=== PATIENT | female | born 1995 | race Caucasian/White ===

== ENCOUNTER 2021-05-17 17:26 | Inpatient (IN) | payer OTHER, SELFPAY ==
--- NOTE | ~2021-05-17 | XR_ITS ---
EXAMINATION: XR HAND, RIGHT CLINICAL INFORMATION: Bruise noted to fifth metacarpal. COMPARISON: Radiograph of the right hand dated from 08/23/2018. TECHNIQUE: PA, lateral, and oblique views of the right hand. FINDINGS: Subtle chronic deformity from prior fracture at the head of the fifth metacarpal bone. No acute fractures or malalignment. Carpal rows are maintained. Mild soft tissue swelling. No unexpected radiopaque foreign bodies. XR/XR hand RT min 3V IMPRESSION: No acute fractures or malalignment.
--- NOTE | ~2021-05-17 | XR_ITS ---
EXAMINATION: XR CHEST CLINICAL INFORMATION: Pneumonia. COMPARISON: None TECHNIQUE: Frontal view of the chest was obtained. FINDINGS: No significant abnormality is noted involving the heart, lungs, mediastinum, bony thorax or soft tissues. XR/XR chest 1V IMPRESSION: Unremarkable chest examination.
--- NOTE | ~2021-05-17 | XR_ITS ---
EXAMINATION: XR THORACIC SPINE CLINICAL INFORMATION: Pain post fall COMPARISON: None TECHNIQUE: 2 views of the thoracic spine were obtained. FINDINGS: There is mild curvature of the thoracic spine to the right. Bone alignment is otherwise normal. No fracture or dislocation is seen. Disc spaces are normal. Paraspinal soft tissues are normal. XR/XR thoracic spine 3V IMPRESSION: No fracture seen.
--- NOTE | 2021-05-17 17:44 | ED.OVERDOSE ---
HPI - Overdose General Chief Complaint: Psychiatric Symptoms Stated Complaint: Section 12 SI Time Seen by Provider: 05/17/21 17:43 Source: patient Mode of arrival: ambulatory Limitations: other (Patient is under the influence of drugs and possibly alcohol.) History of Present Illness HPI Narrative: This is a 26-year-old female presenting to the emergency department via ambulance and no known medical history with suicidal ideation/attempt. Patient snorted 29 bags of heroin per patient's mother and per EMS. According to mother patient was cleaned for 5-6 months and she had a suicide attempt today. She also left a suicide note by her side. Mother found her on the floor, not responding. Unclear whether not Narcan was given. It is also reported to me by EMS that patient has had multiple suicide attempts. Patient is extremely paranoid, tearful, drowsy not answering questions appropriately. EMS also reports to me that she was found with multiple bottles of open alcohol by her side, hard liquor and reports marijuana use. At this time patient tells me that her chest hurts. She has no other complaints. On a section 12 upon arrival. complaint: intentional overdose Onset (ago): minute(s) (30o) Timing confirmed by: family member Related Data Allergies Allergy/AdvReac Type Severity Reaction Status Date / Time SEASONAL ALLERGIES Allergy Mild STUFFY Uncoded 11/19/19 18:42 NOSE, HEADACHES Review of Systems Review of Systems: Constitutional : No Weight loss, No Fever, No Chills, No Fatigue, No Malaise ENT/Mouth : No sore throat, No Rhinorrhea Eyes: No Eye Pain, No Swelling, No Redness Cardiovascular : No Chest Pain, No SOB, No Dyspnea on Exertion, No Orthopnea, No Edema, No Palpitations Respiratory : No Cough, No Sputum, No Wheezing Gastrointestinal : No Nausea, No Vomiting, No Diarrhea, No Constipation, No abdominal Pain, No Hematochezia, No Melena Genitourinary : No Dysuria, No Urinary Frequency, No Hematuria, Musculoskeletal : No joint pain, No Myalgias, No Joint Swelling Skin : No Skin Lesions, No rash Neuro : No Weakness, No Numbness, No Dizziness, No Headache Psych : + Anxiety/Panic, + Depression, + SI All other systems reviewed and are negative [facility] Past Medical History Attestation statement: The following information was validated with the patient. Source: old records reviewed and nursing notes reviewed Medical History (Updated 05/18/21 @ 00:02 by Background Sandeep) Anxiety Depressed Social History Social History Advance Directives: No Advance Directives Information Provided: Yes Physical Exam Vital Signs: Vital Signs: Last Vital Signs Temp 98 F 05/17/21 20:40 Pulse 122 H 05/18/21 02:14 Resp 17 05/18/21 02:14 BP 162/88 H 05/18/21 02:14 Pulse Ox 99 05/18/21 02:14 BMI result Body Mass Index 20.8 Vital signs stable. Appearance: Alert.? Oriented X3.? No acute distress.? Patient drowsy, not answering questions from time to time. Head: Normocephalic, atraumatic, no step-offs or deformities Eyes: Pupils equal, round and reactive to light.? + bilateral pupils pinpoint ENT: Pharynx normal.? Neck: Normal inspection.? Neck supple.? CVS: Normal heart rate and rhythm.? Pulses normal.? Respiratory: No respiratory distress.? Breath sounds normal.? Abdomen: Soft and nontender.? Skin: Skin warm and dry.? Normal skin color.? Normal skin turgor.? Extremities: No lower extremity edema.? No calf ttp. 5/5 strength to bilateral upper and lower extremities + there is bruising noted over the right 5th metacarpal some pain on palpation of the area. Back: No midline tenderness, no C-spine tenderness, full range of motion, no CVA tenderness bilaterally Neuro: Oriented X 3.? No motor deficit.? No sensory deficit. CN 2-12 intact Course Reevaluation(s) Reevaluation #1: Patient's white blood cell count noted to be elevated likely secondary to persistent vomiting. No acute electrolyte abnormalities. Troponin negative. EKG nonischemic, unlikely ACS. Time: 19:00 Reevaluation #2: At this time patient aggressive toward staff members, and myself, sitters at the bedside and nurses. Imminent threat to self and others around her. At this time a medical restraint will be put in ativan and benadryl. Time: 23:30 Reevaluation #3: Called to patient's bedside. Patients capnography 60, respirations 6. Narcan will be given at this time. aware. After Narcan was given patient vomiting a large amount of vomitus despite zofran . Time: 02:15 Additional Reevaluation(s): 226 At this time sign out has been given to Dr. Leyva. MDM - Overdose MDM Narrative Medical decision making narrative: 1820 26 yo f no pmhx presents w/ si attempt w/ heroin OD. According to EMS and mother patient snorted a large amount of heroin. Alcohol was also noted at the patient's bedside at home. Physical exam significant for drowsy female with a rapid regular rhythm likely sinus tachycardia. Bilateral pinpoint pupils. Drowsy however arousable. There is bruising noted over the 5th metacarpal and she reports pain with palpation there. Plan at this time basic labs, UA, VARGAS Informed my attending about this case- at time of arrival patient protecting her own airway. Medical Records Attestation: I reviewed the patient's medical records. Lab Data Attestation: I reviewed the patient's lab results. Result diagrams: 05/17/21 18:32 05/17/21 18:32 Labs: Lab Results 05/17/21 05/17/21 05/17/21 Range/Units 18:32 18:32 18:32 WBC 28.6 H (4.8-10.8) X10*3/uL RBC 4.60 (4.20-5.50) X10*6/uL Hgb 13.8 (12.0-16.0) g/dl Hct 41.6 (37.0-47.0) % MCV 90.4 (80.0-98.0) fL MCH 30.0 (27.0-33.0) pg MCHC 33.2 (31.0-35.0) g/dl RDW 12.3 (11.0-16.0) % Plt Count 287 (160-400) X10*3/uL MPV 10.2 (9.4-12.3) fL Immature Gran % (Auto) 0.6 H (0.0-0.4) % Neut % (Auto) 91.0 H (45-73) % Lymph % (Auto) 2.6 L (20-40) % Hamlin % (Auto) 5.7 (2-11) % Eos % (Auto) 0.0 (0-4) % Baso % (Auto) 0.1 (0-2) % Lymph # (Auto) 0.8 L (1.2-4.9) X10*3/uL Hamlin # (Auto) 1.6 H (0.1-1.2) X10*3/uL Eos # (Auto) 0.0 (0.0-0.4) X10*3/uL Baso # (Auto) 0.0 (0.0-0.2) X10*3/uL Abs Immat Gran (auto) 0.18 H (0.00-0.03) X10*3/uL Absolute Neuts (auto) 26.0 H (2.0-8.3) x10*3/uL Absolute Nucleated RBC 0.000 (0.0-0.012) X10*3/uL Nucleated RBC % (auto) 0.0 (0.0-0.2) /100WBC Sodium 138 (135-145) mmol/L Potassium 4.4 (3.3-5.1) mmol/L Chloride 103 (96-108) mmol/L Carbon Dioxide 22 (22-29) mmol/L Anion Gap 17 (12-20) BUN 14 (9-16) mg/dL Creatinine 0.79 (0.5-1.4) mg/dL Estim Creat Clear Calc 84.6 Estimated GFR > 60 POC Glucose (60-115) mg/dL Random Glucose 131 H (60-115) mg/dL Calcium 9.3 (8.4-10.2) mg/dL Magnesium 2.0 (1.6-2.6) mg/dL Total Bilirubin 0.3 (0.0-1.0) mg/dL AST 44 H (5-31) U/L ALT 24 (0-31) U/L Alkaline Phosphatase 78 (39-117) U/L Troponin I High Sens 4.2 (<3.5-17.0) ng/L Total Protein 7.2 (6.5-8.0) g/dL Albumin 4.6 (3.5-5.0) g/dL Salicylates < 5.0 L (15-30) mg/dL Acetaminophen < 1 (<30) mcg/mL Ethyl Alcohol mg/dL COVID-19 (ROBE) (Negative) COVID-19 Clin Com 05/17/21 05/17/21 05/17/21 Range/Units 18:32 18:48 21:06 WBC (4.8-10.8) X10*3/uL RBC (4.20-5.50) X10*6/uL Hgb (12.0-16.0) g/dl Hct (37.0-47.0) % MCV (80.0-98.0) fL MCH (27.0-33.0) pg MCHC (31.0-35.0) g/dl RDW (11.0-16.0) % Plt Count (160-400) X10*3/uL MPV (9.4-12.3) fL Immature Gran % (Auto) (0.0-0.4) % Neut % (Auto) (45-73) % Lymph % (Auto) (20-40) % Hamlin % (Auto) (2-11) % Eos % (Auto) (0-4) % Baso % (Auto) (0-2) % Lymph # (Auto) (1.2-4.9) X10*3/uL Hamlin # (Auto) (0.1-1.2) X10*3/uL Eos # (Auto) (0.0-0.4) X10*3/uL Baso # (Auto) (0.0-0.2) X10*3/uL Abs Immat Gran (auto) (0.00-0.03) X10*3/uL Absolute Neuts (auto) (2.0-8.3) x10*3/uL Absolute Nucleated RBC (0.0-0.012) X10*3/uL Nucleated RBC % (auto) (0.0-0.2) /100WBC Sodium (135-145) mmol/L Potassium (3.3-5.1) mmol/L Chloride (96-108) mmol/L Carbon Dioxide (22-29) mmol/L Anion Gap (12-20) BUN (9-16) mg/dL Creatinine (0.5-1.4) mg/dL Estim Creat Clear Calc Estimated GFR POC Glucose 83 (60-115) mg/dL Random Glucose (60-115) mg/dL Calcium (8.4-10.2) mg/dL Magnesium (1.6-2.6) mg/dL Total Bilirubin (0.0-1.0) mg/dL AST (5-31) U/L ALT (0-31) U/L Alkaline Phosphatase (39-117) U/L Troponin I High Sens (<3.5-17.0) ng/L Total Protein (6.5-8.0) g/dL Albumin (3.5-5.0) g/dL Salicylates (15-30) mg/dL Acetaminophen (<30) mcg/mL Ethyl Alcohol < 10 mg/dL COVID-19 (ROBE) Negative (Negative) COVID-19 Clin Com See Note ECG Data Attestation: I personally reviewed and interpreted this ECG as follows: ECG interpretation date: 05/17/21 ECG interpretation time: 19:14 Prior ECG tracings: not available for review Interpretation: EKG shows ventricular rate of 127, GA normal, QRS normal, QT/QTC normal. Showing sinus tachycardia no ST elevations or depressions concerning for ischemia. No previous to compare with. Critical Care Time Critical Care Time Critical Care Time: Yes Total Critical Care Time: 35 Attestation: I attest to this time spent taking care of the patient, obtaining history, physical, reviewing labs, imaging, speaking to my attendin Discharge Plan Discharge Clinical Impression: Suicide attempt, Overdose Patient Disposition: Still a Patient
[2021-05-17 17:46] VITALS: BP 134/76; BP 143/103; PULSE 118; PULSE 148; RESP 14; TEMP 36.9; O2SAT 100; O2SAT 97; BMI 20.8
--- NOTE | 2021-05-17 17:50 | ECG_ITS ---
Test Reason : OD Blood Pressure : / mmHG Vent. Rate : 127 BPM Atrial Rate : 127 BPM P-R Int : 120 ms QRS Dur : 070 ms QT Int : 306 ms P-R-T Axes : 075 071 067 degrees QTc Int : 444 ms Artifact in tracing Sinus tachycardia No obvious abnormalities, with limitation of artifact No previous ECGs available Referred By: Vimal Sterling Electronically Signed By:FABIOLA JUAN
[2021-05-17] MEDS: Naloxone HCl Nasal 4 MG SPRAY NOSTRILALT (18:24)
[2021-05-17 18:39] LABS: MANUAL DIFF FLAG NO
[2021-05-17 18:43] LABS: Basophils Percent Auto 0.1 % (0-2); Hematocrit 41.6 % (37.0-47.0); Hemoglobin 13.8 g/dl (12.0-16.0); Imm Gran Abs Auto 0.18 X10*3/uL (0.00-0.03); Imm Gran Pct Auto 0.6 % (0.0-0.4); Lymphocytes Absolute Auto 0.8 X10*3/uL (1.2-4.9); Lymphocytes Percent Auto 2.6 % (20-40); Mean Corpuscular HGB Conc 33.2 g/dl (31.0-35.0); Mean Corpuscular Volume 90.4 fL (80.0-98.0); Mean Platelet Volume 10.2 fL (9.4-12.3); Monocytes Absolute Auto 1.6 X10*3/uL (0.1-1.2); Monocytes Percent Auto 5.7 % (2-11); Platelet Count 287 X10*3/uL (160-400); Red Cell Distribution Width 12.3 % (11.0-16.0); SCAN SMEAR FLAG 1; White Blood Count 28.6 X10*3/uL (4.8-10.8)
[2021-05-17] MEDS: ondansetron HCL 4 MG/2 ML VIAL IVPUSH (18:47)
[2021-05-17 18:51] LABS: Ethanol < 10 mg/dL
[2021-05-17 18:54] LABS: Acetaminophen LAB < 1 mcg/mL (<30); Alanine Aminotransferase 24 U/L (0-31); Albumin Level 4.6 g/dL (3.5-5.0); Alkaline Phosphatase 78 U/L (39-117); Anion Gap 17 (12-20); Aspartate Amino Transferase 44 U/L (5-31); Bilirubin Total 0.3 mg/dL (0.0-1.0); Blood Urea Nitrogen 14 mg/dL (9-16); Calcium 9.3 mg/dL (8.4-10.2); Carbon Dioxide 22 mmol/L (22-29); Chloride 103 mmol/L (96-108); Creatinine Clr Calc Pharmacy 84.6; Estimated Glomerular Filt Rate > 60; Glucose Random 131 mg/dL (60-115); Potassium 4.4 mmol/L (3.3-5.1); Salicylate < 5.0 mg/dL (15-30); Sodium 138 mmol/L (135-145); Total Protein 7.2 g/dL (6.5-8.0)
[2021-05-17 19:07] LABS: Troponin-I High Sensitivity 4.2 ng/L (<3.5-17.0)
[2021-05-17 19:08] LABS: COVID-19 Test Negative (Negative)
[2021-05-17 20:40] VITALS: BP 112/60; PULSE 73; RESP 12; TEMP 36.6; O2SAT 95
[2021-05-17] MEDS: 0.9 % Sodium Chloride 1,000 ML 999 ML IV (21:03)
[2021-05-17 21:10] LABS: Glucose, Whole Blood 83 mg/dL (60-115)
[2021-05-17] MEDS: LORazepam 2 MG/ML VIAL IM (23:50)
[2021-05-17] MEDS: diphenhydrAMINE HCL 50 MG/ML VIAL IM (23:50)
[2021-05-18] VITALS (13 sets, daily range): BP systolic 114–162; BP diastolic 66–90; PULSE 71–122; RESP 7–18; TEMP 37.5–37.8; O2SAT 97–100; BMI 19.4
[2021-05-18] MEDS: Naloxone HCl Nasal 4 MG SPRAY NOSTRILALT (01:53)
[2021-05-18] MEDS: ondansetron HCL 4 MG/2 ML VIAL IVPUSH (02:04)
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
--- NOTE | 2021-05-18 03:51 | PC.NURSE ---
pt is a 1:1 at this time due to having agitation and aggressive behavior with staff. Pt is currently sleeping with no sign of distress. pt is on the bedside monitor.
--- NOTE | 2021-05-18 05:57 | PC.NURSE ---
pt is awake and cooperative at this time. Pt mother called in regards to getting information/ update on her daughter. Pt does not want any information given out.
[2021-05-18 06:59] LABS: Appearance Urine CLEAR; Color Urine YELLOW; Glucose Urine UA NEG (NEG); Leukocyte Esterase Urine NEG (NEG); Nitrite Urine NEG (NEG); PH 5.5 (5.0-8.0); Specific Gravity - Urine >= 1.030 (1.005-1.025); UACC Culture Trigger NO; Urine Blood 3+ (NEG); Urine Ketones 15 MG/DL (NEG); Urine Protein 1+ MG/DL (NEG-TRACE)
[2021-05-18 07:01] LABS: UPreg QC Valid YES; Urine Pregnancy NEGATIVE (NEGATIVE)
--- NOTE | 2021-05-18 07:05 | PC.NURSE ---
[facility] referral sent at this time
[2021-05-18 07:13] LABS: RBC Urine 0-2 /HPF (0)
[2021-05-18 07:14] LABS: Bacteria Urine TRACE /LPF; Mucus Urine 1+ /LPF; Squamous Epithelial Cell Urine TRACE /LPF
[2021-05-18 07:15] LABS: Amorphous Sediment Urine 2+ /LPF; Amphetamine Screen Urine Not Detected (Not Detect); Barbiturates, Urine Not Detected (Not Detect); Benzodiazepines Screen Urine POSITIVE (Not Detect); Cannabinoid Screen Urine POSITIVE (Not Detect); Cocaine Screen Urine Not Detected (Not Detect); Fentanyl, urine POSITIVE (Not Detect); Opiate Screen Urine Not Detected (Not Detect); Phencyclidine Screen Urine Not Detected (Not Detect)
--- NOTE | 2021-05-18 11:09 | MHC.CARE ---
Pt is a CARE Team bedsearch.
--- NOTE | 2021-05-18 11:48 | PHA.MEDREC ---
Pharmacy Consult ? Medication Reconciliation Pharmacy has completed the medication reconciliation. Patient reported medications match claim history. Azael ArceD
[2021-05-18 14:38] LABS: MANUAL DIFF FLAG NO
[2021-05-18 14:47] LABS: Basophils Percent Auto 0.2 % (0-2); Eosinophils Percent Auto 0.1 % (0-4); Hematocrit 41.4 % (37.0-47.0); Hemoglobin 13.6 g/dl (12.0-16.0); Imm Gran Abs Auto 0.06 X10*3/uL (0.00-0.03); Imm Gran Pct Auto 0.4 % (0.0-0.4); Lymphocytes Absolute Auto 2.1 X10*3/uL (1.2-4.9); Lymphocytes Percent Auto 13.4 % (20-40); Mean Corpuscular HGB Conc 32.9 g/dl (31.0-35.0); Mean Corpuscular Hemoglobin 29.6 pg (27.0-33.0); Mean Platelet Volume 9.8 fL (9.4-12.3); Monocytes Absolute Auto 1.3 X10*3/uL (0.1-1.2); Monocytes Percent Auto 8.5 % (2-11); Neutrophils Absolute Auto 12.1 x10*3/uL (2.0-8.3); Neutrophils Percent Auto 77.4 % (45-73); Platelet Count 244 X10*3/uL (160-400); Red Cell Distribution Width 12.3 % (11.0-16.0); White Blood Count 15.6 X10*3/uL (4.8-10.8)
[2021-05-18] MEDS: Metoclopramide HCl 10 MG TABLET PO (14:58)
[2021-05-18 15:05] LABS: Alanine Aminotransferase 117 U/L (0-31); Albumin Level 4.5 g/dL (3.5-5.0); Alkaline Phosphatase 72 U/L (39-117); Anion Gap 16 (12-20); Aspartate Amino Transferase 325 U/L (5-31); Bilirubin Total 0.6 mg/dL (0.0-1.0); Blood Urea Nitrogen 9 mg/dL (9-16); Calcium 9.6 mg/dL (8.4-10.2); Carbon Dioxide 25 mmol/L (22-29); Chloride 104 mmol/L (96-108); Creatinine Clr Calc Pharmacy 85.7; Estimated Glomerular Filt Rate > 60; Glucose Random 96 mg/dL (60-115); Potassium 3.9 mmol/L (3.3-5.1); Sodium 141 mmol/L (135-145); Total Protein 7.1 g/dL (6.5-8.0)
--- NOTE | 2021-05-18 15:29 | PC.NURSE ---
pt c/o back pain, nausea, given reglan - vomiting episode 1520
[2021-05-18] MEDS: Cyclobenzaprine HCl 10 MG TABLET PO (15:59)
[2021-05-18] MEDS: Ibuprofen 800 MG TABLET PO (16:00)
[2021-05-18 16:05] LABS: Acetaminophen LAB < 1 mcg/mL (<30); Salicylate < 5.0 mg/dL (15-30)
[2021-05-18] MEDS: clonazePAM 0.5 MG TABLET PO (22:07)
[2021-05-18] MEDS: cloNIDine HCL 0.1 MG TABLET 0.3 MG PO (22:07)
--- NOTE | 2021-05-18 23:05 | PC.ADMIT ---
Pt is a 26y/o female admitted on CV for intentional OD. Pt' mother called EMS after pt was found unresponsive on the pt's bedside, along with a suicide note. Pt reports she feels helpless, hopeless and wants to end her life. Pt is alert and oriented. VSS, Covid negative, Tox screen positive for fentanyl, benzo's, etc. Pt presents with a labile mood and congruent affect to content at times. Appears weak and slightly unstable due to narcan given at the ED. Speech is normal regular with normal tone, tangential at times. Pt is irritable. Pt does not endorse HI/AH/VH. Judgement, insight and impulse control are impaired. Admission orders obtained.
[2021-05-19] VITALS: PULSE 102
[2021-05-19] MEDS: chlorproMAZINE HCl 25 MG TABLET PO ×2 (01:08→19:32)
[2021-05-19 06:00] VITALS: BP 116/56; PULSE 66; RESP 14; TEMP 36.4; O2SAT 99
[2021-05-19 08:00] VITALS: PULSE 110
[2021-05-19 08:01] LABS: HBS Num1 0.02 mIU/mL (0-7.99); HBc Num1 0.07 S/CO (0.00-0.79); Hepatitis A Antibody IgM 0.17 Index (0-0.79); Hepatitis B Core Antibody Nonreactive (Nonreactive); ~HepC Num1 0.05 S/CO (0.00-0.79); ~Hepatitis A Antibody IgM Nonreactive (Nonreactive); ~Hepatitis B Surface Antibody NONREACTIVE (Nonreactive); ~Hepatitis C Antibody Nonreactive (Nonreactive)
[2021-05-19 08:19] LABS: HBsAGNum1 0.19 S/CO (0.00-0.99); Hepatitis B Surface Antigen Negative (Negative)
[2021-05-19 09:12] LABS: Estimated Average Glucose 97 mg/dL
[2021-05-19 09:13] LABS: Cholesterol 165 mg/dL; HDL Cholesterol 60 mg/dL; LDL Cholesterol Calculated 91 mg/dl; Magnesium 2.1 mg/dL (1.6-2.6); Triglycerides 73 mg/dL
[2021-05-19] MEDS: cloNIDine HCL 0.1 MG TABLET PO (09:26)
[2021-05-19] MEDS: clonazePAM 0.5 MG TABLET PO ×2 (09:27→19:32)
[2021-05-19 09:35] LABS: Free T4 (Free Thyroxine) 1.17 ng/dL (0.71-1.85); Thyroid Stimulating Hormone 0.95 uIU/mL (0.32-4.0)
[2021-05-19 09:58] LABS: Folate 12.1 ng/mL (> or = 4.0); Vitamin B12 475 pg/mL (200-900)
[2021-05-19 14:34] VITALS: BP 169/104; PULSE 110; TEMP 37.1
--- NOTE | 2021-05-19 15:38 | PM.EVENT ---
Event Note Date of Service: 05/19/21 Event Note: Pt reports back pain-thoracic area radiating down R leg. Believes this was Narcan related. Pt was told she fell but does not actually think this is true. Area of redness mid quadrant with slight bruising. Spinal films are negative. Pt does appear to have a rash in this area without sx of anaphylaxis. Continue to monitor.
[2021-05-19 16:00] VITALS: PULSE 102
[2021-05-19] MEDS: LORazepam 1 MG TABLET PO (16:22)
[2021-05-19] MEDS: Acetaminophen 325 MG TABLET 650 MG PO ×2 (16:22→21:14)
[2021-05-19 18:00] VITALS: BP 128/78; PULSE 105; RESP 16; TEMP 36.6; O2SAT 99
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
[2021-05-19] MEDS: cloNIDine HCL 0.1 MG TABLET 0.3 MG PO (19:32)
[2021-05-19] MEDS: Ibuprofen 600 MG TABLET PO (22:26)
--- NOTE | 2021-05-19 23:24 | PC.NURSE ---
Pt alert and sleepy, VSS, C/O of back pain unrelieved by ordered PRN. Seen by Deb Steiner NP. New order: Motrin, given per order with positive effect. Pt sleeping.
[2021-05-20 06:00] VITALS: BP 128/71; PULSE 61; TEMP 37
[2021-05-20 08:00] VITALS: PULSE 61
[2021-05-20] MEDS: Ibuprofen 600 MG TABLET PO ×3 (08:05→20:24)
[2021-05-20] MEDS: cloNIDine HCL 0.1 MG TABLET PO (08:05)
[2021-05-20] MEDS: clonazePAM 0.5 MG TABLET PO ×2 (08:06→20:23)
[2021-05-20] MEDS: Multivitamin TABLET 1 TAB PO ×2 (08:08→10:07)
[2021-05-20] MEDS: Spironolactone 25 MG TABLET 100 MG PO ×2 (08:08→17:52)
[2021-05-20] MEDS: Calcium + Vitamin D 250 MG TABLET PO (08:08)
--- NOTE | 2021-05-20 08:36 | P.PNPSI_ITS ---
Subjective Subjective Date of Service: 05/20/21 Reason For Visit: Heroine OD, suicide attempt Subjective Notes: Conditional Voluntary and 3 Day Medical Problems Affecting Mental Status: Yes (Rash on the right side of her back) Interim History: Patient was seen and discussed in rounds today. Records and plans were reviewed. She continues to feel weak and has a hard time walking because of her back with a rash which is thought to be may be related to to Narcan treatments in the emergency room. She asked some questions about her discharge. She has been somewhat labile and tearful at times. She is isolative. No other complaints. No SI. No changes were made today Side effects from medications: Yes Attending Groups: No Mental Status Exam Mental Status Exam Narrative: In today's visit she is alert, oriented and pleasant. Normal speech. Little eye contact. She was laying in bed. Speech is soft-spoken and slightly slowed. No acute signs of psychosis. No SI. Cognitively she has slow thought processes. No signs of psychosis. Judgment is generally intact Diagnostics Vital Signs (24Hr): Vital Signs - 24 hr 05/19/21 14:34 05/19/21 18:00 05/20/21 06:00 Temperature 98.7 F 97.8 F 98.6 F Pulse Rate 110 H 105 H 61 Respiratory Rate 16 Blood Pressure 169/104 H 128/78 128/71 Pulse Oximetry 99 BMI result Body Mass Index 19.4 Labs Results: 05/18/21 14:32 05/18/21 14:32 Labs: Laboratory Results - last 48 hr 05/18/21 05/18/21 05/18/21 14:32 14:32 14:32 WBC 15.6 H RBC 4.60 Hgb 13.6 Hct 41.4 MCV 90.0 MCH 29.6 MCHC 32.9 RDW 12.3 Plt Count 244 MPV 9.8 Immature Gran % (Auto) 0.4 Neut % (Auto) 77.4 H Lymph % (Auto) 13.4 L Miner % (Auto) 8.5 Eos % (Auto) 0.1 Baso % (Auto) 0.2 Lymph # (Auto) 2.1 Miner # (Auto) 1.3 H Eos # (Auto) 0.0 Baso # (Auto) 0.0 Abs Immat Gran (auto) 0.06 H Absolute Neuts (auto) 12.1 H Absolute Nucleated RBC 0.000 Nucleated RBC % (auto) 0.0 Sodium 141 Potassium 3.9 Chloride 104 Carbon Dioxide 25 Anion Gap 16 BUN 9 Creatinine 0.78 Estim Creat Clear Calc 85.7 Estimated GFR > 60 Random Glucose 96 Estimat Average Glucose Hemoglobin A1c % Calcium 9.6 Magnesium Total Bilirubin 0.6 AST 325 H ALT 117 H Alkaline Phosphatase 72 Total Protein 7.1 Albumin 4.5 Triglycerides Cholesterol LDL Cholesterol, Calc HDL Cholesterol Vitamin B12 Folate TSH Free T4 Salicylates < 5.0 L Acetaminophen < 1 Hepatitis A IgM Ab Nonreactive Hep Bs Antigen Negative Hep Bs Antibody NONREACTIVE Hep B Core Total Ab Nonreactive Hepatitis C Ab (EIA) Nonreactive 05/19/21 05/19/21 05/19/21 08:06 08:06 08:06 WBC RBC Hgb Hct MCV MCH MCHC RDW Plt Count MPV Immature Gran % (Auto) Neut % (Auto) Lymph % (Auto) Miner % (Auto) Eos % (Auto) Baso % (Auto) Lymph # (Auto) Miner # (Auto) Eos # (Auto) Baso # (Auto) Abs Immat Gran (auto) Absolute Neuts (auto) Absolute Nucleated RBC Nucleated RBC % (auto) Sodium Potassium Chloride Carbon Dioxide Anion Gap BUN Creatinine Estim Creat Clear Calc Estimated GFR Random Glucose Estimat Average Glucose 97 Hemoglobin A1c % 5.0 Calcium Magnesium 2.1 Total Bilirubin AST ALT Alkaline Phosphatase Total Protein Albumin Triglycerides 73 Cholesterol 165 LDL Cholesterol, Calc 91 HDL Cholesterol 60 Vitamin B12 475 Folate 12.1 TSH 0.95 Free T4 1.17 Salicylates Acetaminophen Hepatitis A IgM Ab Hep Bs Antigen Hep Bs Antibody Hep B Core Total Ab Hepatitis C Ab (EIA) Imaging Radiology Impressions: ITS Impressions Hand X-Ray 05/17/21 19:17 IMPRESSION: No acute fractures or malalignment. Chest X-Ray 05/18/21 14:19 IMPRESSION: Unremarkable chest examination. Thoracic Spine X-Ray 05/19/21 13:55 IMPRESSION: No fracture seen. Medications Medications Current Medications Al Hydroxide/Mg Hydroxide (Magnesium Hydrox/Alum Hydrox 30 Ml Oral.Susp) 30 ml PO Q6H PRN PRN Reason: Heartburn/Nausea Calcium Carbonate/Cholecalciferol (Calcium + Vitamin D 250 Mg Tablet) 250 mg PO DAILY [facility] Last Admin: 05/20/21 08:08 Dose: 250 mg Documented by: Chlorpromazine HCl (Chlorpromazine Hcl 25 Mg Tablet) 25 mg PO BEDTIME [facility] Last Admin: 05/19/21 19:32 Dose: 25 mg Documented by: Clonazepam (Clonazepam 0.5 Mg Tablet) 0.5 mg PO BID [facility] Last Admin: 05/20/21 08:06 Dose: 0.5 mg Documented by: Clonidine HCl (Clonidine Hcl 0.1 Mg Tablet) 0.3 mg PO BEDTIME [facility]; Protocol Last Admin: 05/19/21 19:32 Dose: 0.3 mg Documented by: Clonidine HCl (Clonidine Hcl 0.1 Mg Tablet) 0.1 mg PO DAILY [facility]; Protocol Last Admin: 05/20/21 08:05 Dose: 0.1 mg Documented by: Doxycycline Hyclate (Doxycycline Hyclate 100 Mg Tablet) 100 mg PO Q12H [facility] Last Admin: 05/19/21 21:35 Dose: 100 mg Documented by: Hydroxyzine HCl (Hydroxyzine Hcl 50 Mg Tablet) 50 mg PO Q6H PRN PRN Reason: itching, anxiety Ibuprofen (Ibuprofen 600 Mg Tablet) 600 mg PO Q6H PRN PRN Reason: mod pain Last Admin: 05/20/21 08:05 Dose: 600 mg Documented by: Lorazepam (Lorazepam 1 Mg Tablet) 1 mg PO Q6H PRN PRN Reason: Alcohol Withdrawal ONLY Magnesium Hydroxide (Milk Of Magnesia 30 Ml Oral.Susp) 30 ml PO DAILY PRN PRN Reason: Constipation Multivitamins/Vitamin C (Multivitamin Tablet) 1 tab PO DAILY [facility] Last Admin: 05/20/21 08:08 Dose: 1 tab Documented by: Spironolactone (Spironolactone 25 Mg Tablet) 100 mg PO BID@0900,1800 [facility]; Protocol Last Admin: 05/20/21 08:08 Dose: 100 mg Documented by: Allergies Allergies Allergy/AdvReac Type Severity Reaction Status Date / Time aripiprazole [From Abilify] Allergy Severe Unknown Verified 05/19/21 18:24 haloperidol [From Haldol] Allergy Severe Unknown Unverified 05/19/21 18:21 propranolol Allergy Severe Unknown Verified 05/19/21 18:24 SEASONAL ALLERGIES Allergy Mild STUFFY Uncoded 11/19/19 18:42 NOSE, HEADACHES Assessment & Plan Assessment & Plan (1) Borderline personality disorder: Status: Acute Code(s): F60.3 - Borderline personality disorder (2) Bipolar II disorder: Status: Acute Code(s): F31.81 - Bipolar II disorder (3) Post traumatic stress disorder (PTSD): Status: Acute Code(s): F43.10 - Post-traumatic stress disorder, unspecified Plan Arelis is a 26 y.o. Female who carries a dx of polysubstance abuse, BPD. Pt snorted 28 bags of heroin at home as a suicide attempt after having been sober for 6 months; left a suicide note by her side. She was administered narcan in the ED. Utox was positive for cocaine, fentanyl, and cannabis. Her ethyl alcohol level was negative. In the ED, CBC showed elevated white blood cell count and transaminitis. Chest x-ray was normal. Pt also had xray of R hand due to reportedly punching a door, xray of thoracic spine due to complaining of pain, has demarcated macular erythematous rash on lower R flank that she has been icing. Pt presented as paranoid, labile, and disorganized. While in the ED pt required chemical restraint with haldol and ativan for aggression.? Plan: Discussed medication changes and per pt, ?I dont wanna change anything.? Pt signed a 3 day notice. Pt complained of back pain, discussed rash with hospitalist and he recommended starting doxycycline 100 mg BID as prophylaxis for cellulitis. Will place hospitalist consult for AM due to transaminitis and to re-assess rash, which I outlined with a pen, per hospitalist recommendation. Will re-order CMP and hepatitis panel for AM. 05/20/2021: Continue current regimen and plans. No changes were made today I spent minutes with the patient and/or on the patient floor today, greater than?50% of which was spent counseling/coordinating care. Patient educated on: medication risk/benefits Reason for contiued inpatient stay Substantial Risk for: other
[2021-05-20 08:43] LABS: Alanine Aminotransferase 98 U/L (0-31); Albumin Level 4.2 g/dL (3.5-5.0); Alkaline Phosphatase 59 U/L (39-117); Anion Gap 19 (12-20); Aspartate Amino Transferase 172 U/L (5-31); Bilirubin Total 1.1 mg/dL (0.0-1.0); Blood Urea Nitrogen 10 mg/dL (9-16); Calcium 9.8 mg/dL (8.4-10.2); Carbon Dioxide 24 mmol/L (22-29); Chloride 101 mmol/L (96-108); Creatinine Clr Calc Pharmacy 90.5; Estimated Glomerular Filt Rate > 60; Glucose Random 83 mg/dL (60-115); Potassium 3.6 mmol/L (3.3-5.1); Sodium 140 mmol/L (135-145); Total Protein 6.5 g/dL (6.5-8.0)
[2021-05-20] MEDS: Magnesium Hydrox/Alum Hydrox 30 ML ORAL.SUSP PO (14:39)
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
[2021-05-20 16:00] VITALS: PULSE 89
[2021-05-20] MEDS: Lidocaine 4 % Patch ADH..PATCH 1 PATCH TRANSDERMA (17:58)
[2021-05-20 20:05] VITALS: BP 135/86; PULSE 89; TEMP 37.1
[2021-05-20] MEDS: chlorproMAZINE HCl 25 MG TABLET PO (20:22)
[2021-05-20] MEDS: cloNIDine HCL 0.1 MG TABLET 0.3 MG PO (20:26)
[2021-05-21 06:00] VITALS: BP 129/82; PULSE 92; RESP 18; TEMP 37.6; O2SAT 95
--- NOTE | 2021-05-21 08:03 | P.PNPSI_ITS ---
Subjective Subjective Date of Service: 05/21/21 Reason For Visit: Heroine OD, suicide attempt Subjective Notes: Conditional Voluntary Healthcare Proxy: No Guardianship: No Medical Problems Affecting Mental Status: Yes (Back pain and discomfort) Interim History: Patient was seen and discussed in rounds today.? Records and plans were reviewed.? She continued to have difficulties in complaints with her back and finally a lidocaine patch was ordered for up to 48 hours which was very helpful. In today's visit she had several questions pertaining to her liver function tests which were quite elevated on 05/18 and lowered on 05/20. Given her age and lack of any persistent history of substance abuse it may have been related to the heroin overdose. Also she had questions about her x-rays which I reviewed and did not reveal any major abnormalities. She is eating and sleeping adequately. No SI. She is more social. She has not been showing any signs of withdrawal so both CIWA and cow were discontinued. Medication Compliance: Yes Side effects from medications: No Attending Groups: Yes Review of Systems Review of Systems Except for right back and upper thigh discomfort Yes all other systems are reviewed and are negative Mental Status Exam Mental Status Exam Narrative: In today's visit she is alert, oriented and pleasant. Normal speech. She is up and walking and socializing today. Speech is normal good eye contact. No acute signs of psychosis. No SI. Cognitively is intact. No signs of psychosis. Judgment is intact Diagnostics Vital Signs (24Hr): Vital Signs - 24 hr 05/20/21 20:05 Temperature 98.8 F Pulse Rate 89 Blood Pressure 135/86 BMI result Body Mass Index 19.4 Labs Results: 05/18/21 14:32 05/20/21 07:49 Labs: Laboratory Results - last 48 hr 05/18/21 05/19/21 05/19/21 14:32 08:06 08:06 Sodium Potassium Chloride Carbon Dioxide Anion Gap BUN Creatinine Estim Creat Clear Calc Estimated GFR Random Glucose Estimat Average Glucose 97 Hemoglobin A1c % 5.0 Calcium Magnesium 2.1 Total Bilirubin AST ALT Alkaline Phosphatase Total Protein Albumin Triglycerides 73 Cholesterol 165 LDL Cholesterol, Calc 91 HDL Cholesterol 60 Vitamin B12 Folate TSH 0.95 Free T4 1.17 Hepatitis A IgM Ab Nonreactive Hep Bs Antigen Negative Hep Bs Antibody NONREACTIVE Hep B Core Total Ab Nonreactive Hepatitis C Ab (EIA) Nonreactive 05/19/21 05/20/21 08:06 07:49 Sodium 140 Potassium 3.6 Chloride 101 Carbon Dioxide 24 Anion Gap 19 BUN 10 Creatinine 0.71 Estim Creat Clear Calc 90.5 Estimated GFR > 60 Random Glucose 83 Estimat Average Glucose Hemoglobin A1c % Calcium 9.8 Magnesium Total Bilirubin 1.1 H AST 172 H ALT 98 H Alkaline Phosphatase 59 Total Protein 6.5 Albumin 4.2 Triglycerides Cholesterol LDL Cholesterol, Calc HDL Cholesterol Vitamin B12 475 Folate 12.1 TSH Free T4 Hepatitis A IgM Ab Hep Bs Antigen Hep Bs Antibody Hep B Core Total Ab Hepatitis C Ab (EIA) Imaging Radiology Impressions: ITS Impressions Hand X-Ray 05/17/21 19:17 IMPRESSION: No acute fractures or malalignment. Chest X-Ray 05/18/21 14:19 IMPRESSION: Unremarkable chest examination. Thoracic Spine X-Ray 05/19/21 13:55 IMPRESSION: No fracture seen. Medications Medications Current Medications Al Hydroxide/Mg Hydroxide (Magnesium Hydrox/Alum Hydrox 30 Ml Oral.Susp) 30 ml PO Q6H PRN PRN Reason: Heartburn/Nausea Last Admin: 05/20/21 14:39 Dose: 30 ml Documented by: Calcium Carbonate/Cholecalciferol (Calcium + Vitamin D 250 Mg Tablet) 250 mg PO DAILY [facility] Last Admin: 05/20/21 08:08 Dose: 250 mg Documented by: Chlorpromazine HCl (Chlorpromazine Hcl 25 Mg Tablet) 25 mg PO BEDTIME [facility] Last Admin: 05/20/21 20:22 Dose: 25 mg Documented by: Clonazepam (Clonazepam 0.5 Mg Tablet) 0.5 mg PO BID [facility] Last Admin: 05/20/21 20:23 Dose: 0.5 mg Documented by: Clonidine HCl (Clonidine Hcl 0.1 Mg Tablet) 0.3 mg PO BEDTIME [facility]; Protocol Last Admin: 05/20/21 20:26 Dose: 0.3 mg Documented by: Clonidine HCl (Clonidine Hcl 0.1 Mg Tablet) 0.1 mg PO DAILY [facility]; Protocol Last Admin: 05/20/21 08:05 Dose: 0.1 mg Documented by: Doxycycline Hyclate (Doxycycline Hyclate 100 Mg Tablet) 100 mg PO Q12H [facility] Last Admin: 05/20/21 20:23 Dose: 100 mg Documented by: Hydroxyzine HCl (Hydroxyzine Hcl 50 Mg Tablet) 50 mg PO Q6H PRN PRN Reason: itching, anxiety Ibuprofen (Ibuprofen 600 Mg Tablet) 600 mg PO Q6H PRN PRN Reason: mod pain Last Admin: 05/20/21 20:24 Dose: 600 mg Documented by: Lidocaine (Lidocaine 4 % Patch Adh..Patch) 1 patch TRANSDERMA DAILY [facility]; Protocol Stop: 05/22/21 17:28 Last Admin: 05/20/21 17:58 Dose: 1 patch Documented by: Lorazepam (Lorazepam 1 Mg Tablet) 1 mg PO Q6H PRN PRN Reason: Alcohol Withdrawal ONLY Magnesium Hydroxide (Milk Of Magnesia 30 Ml Oral.Susp) 30 ml PO DAILY PRN PRN Reason: Constipation Multivitamins/Vitamin C (Multivitamin Tablet) 1 tab PO DAILY [facility] Last Admin: 05/20/21 10:07 Dose: 1 tab Documented by: Spironolactone (Spironolactone 25 Mg Tablet) 100 mg PO BID@0900,1800 [facility]; Protocol Last Admin: 05/20/21 17:52 Dose: 100 mg Documented by: Allergies Allergies Allergy/AdvReac Type Severity Reaction Status Date / Time aripiprazole [From Abilify] Allergy Severe Unknown Verified 05/19/21 18:24 haloperidol [From Haldol] Allergy Severe Confusion Verified 05/20/21 17:52 propranolol Allergy Severe Unknown Verified 05/19/21 18:24 SEASONAL ALLERGIES Allergy Mild STUFFY Uncoded 11/19/19 18:42 NOSE, HEADACHES Assessment & Plan Assessment & Plan (1) Post traumatic stress disorder (PTSD): Status: Acute Code(s): F43.10 - Post-traumatic stress disorder, unspecified Plan 26-year-old woman with history of PTSD, bipolar disorder admitted to for psychiatric care. She had complaints of back pain and labs revealed transaminitis Back pain. Seems more likely musculoskeletal pain from scratch injury Continue NSAIDs, warm packs No antibiotics are warranted this does not appear to be infectious Transaminitis. Unknown etiology. Will recheck LFTs tomorrow morning, if continued to be elevated will consider consulting Gastroenterology. 05/21/2021: Continue current regimen and plans. Lidocaine patches available for 1 more day. I spent minutes with the patient and/or on the patient floor today, greater than?50% of which was spent counseling/coordinating care. Patient educated on: medication risk/benefits and medical condition Informed Consent: understands Reason for contiued inpatient stay Substantial Risk for: other
[2021-05-21] MEDS: Calcium + Vitamin D 250 MG TABLET PO (08:17)
[2021-05-21] MEDS: Multivitamin TABLET 1 TAB PO (08:17)
[2021-05-21] MEDS: cloNIDine HCL 0.1 MG TABLET PO (08:17)
[2021-05-21] MEDS: Lidocaine 4 % Patch ADH..PATCH 1 PATCH TRANSDERMA (08:18)
[2021-05-21] MEDS: clonazePAM 0.5 MG TABLET PO ×2 (08:18→21:54)
[2021-05-21] MEDS: Spironolactone 25 MG TABLET 100 MG PO ×2 (08:18→19:31)
[2021-05-21] MEDS: Milk of Magnesia 30 ML ORAL.SUSP PO (09:48)
[2021-05-21] MEDS: Ibuprofen 600 MG TABLET PO (09:48)
--- NOTE | 2021-05-21 12:35 | PC.NURSE ---
Pt c/o nausea, R flank pain above kidney, tender to touch, visibly wincing. Pain 10/10. Hunched over when walking. No relief when lying down, sitting, or standing. No c/o pain or burning when urinating. Reports urine looks normal . Is not on her menses. Reports pain was 7/10 upon awakening. No relief with ice, lidocaine patch, and motrin. Dr. Day notified. Hospitalist consult ordered.
[2021-05-21] MEDS: NaPROXEN 500 MG TABLET PO ×2 (15:55→21:59)
[2021-05-21 21:30] VITALS: BP 131/70; PULSE 84; TEMP 37.1
[2021-05-21] MEDS: cloNIDine HCL 0.1 MG TABLET 0.3 MG PO (21:52)
[2021-05-21] MEDS: chlorproMAZINE HCl 25 MG TABLET PO (21:54)
[2021-05-22 06:00] VITALS: BP 128/65; PULSE 85; RESP 16; O2SAT 98
[2021-05-22 08:04] LABS: HBS Num1 0.47 mIU/mL (0-7.99); HBc Num1 0.06 S/CO (0.00-0.79); Hepatitis B Core Antibody Nonreactive (Nonreactive); ~HepC Num1 0.04 S/CO (0.00-0.79); ~Hepatitis B Surface Antibody NONREACTIVE (Nonreactive); ~Hepatitis C Antibody Nonreactive (Nonreactive)
[2021-05-22 08:10] LABS: Hepatitis B Surface Antigen Negative (Negative)
[2021-05-22] MEDS: cloNIDine HCL 0.1 MG TABLET PO (08:52)
[2021-05-22] MEDS: clonazePAM 0.5 MG TABLET PO ×2 (08:52→21:10)
[2021-05-22] MEDS: Spironolactone 25 MG TABLET 100 MG PO ×2 (08:53→17:38)
[2021-05-22] MEDS: Multivitamin TABLET 1 TAB PO (08:53)
[2021-05-22] MEDS: Calcium + Vitamin D 250 MG TABLET PO (08:53)
[2021-05-22] MEDS: NaPROXEN 500 MG TABLET PO ×2 (08:56→21:12)
[2021-05-22 09:15] LABS: Alanine Aminotransferase 70 U/L (0-31); Albumin Level 4.6 g/dL (3.5-5.0); Alkaline Phosphatase 58 U/L (39-117); Aspartate Amino Transferase 71 U/L (5-31); Bilirubin Direct 0.4 mg/dL (0.0-0.5); Bilirubin Total 1.1 mg/dL (0.0-1.0); Total Protein 7.3 g/dL (6.5-8.0)
[2021-05-22] MEDS: Cyclobenzaprine HCl 10 MG TABLET PO ×2 (16:33→21:13)
[2021-05-22] MEDS: Ibuprofen 600 MG TABLET PO (17:43)
[2021-05-22 18:00] VITALS: BP 118/75; PULSE 80; TEMP 36.9
--- NOTE | 2021-05-22 21:06 | P.PNPSI_ITS ---
Subjective Subjective Date of Service: 05/22/21 Reason For Visit: Heroine OD, suicide attempt Interim History: pt says her med is much better and she denies any SI at all. She says i'll ne serene, ever do that again. Pt denies depression or anxiety. She does not think she needs medications other than clonidine; she reports she's tried numerous med trials and they all have caused intolerable side-effects; thus she wants to cope on her own w/out meds. Pt c/o right sided back pain and says it's hard to walk, hard to lie down and she's nervous that when she goes to the longterm, she'll be vulnerable to aggressors should the present. focused exam showed b/l lower extremity strength 5/5 and pain appears muscloskeletal; hospitalist consulted who reports the same. Pt agrees to trial of flexaril. Pt says she loves her job, where she works in [employer] and looks forward to getting back to it. Mental Status Exam Mental Status Exam Narrative: A/O; in hospital attire, long dyed hair, piercing. good eye contact, attentive. No Tics or Tremors. No abnormal involuntary movements. Pt is calm, cooperative and friendly; spontaneous, non-pressured speech with regular rate and rhythm, normal volume and prosody. No prolonged speech latency or dysarthria. Mood is ?good,? affect is congruent; Currently denies SI/SIB/HI upon inquiry. Denies A/VH. No paranoid delusional thought content expressed. Thoughts are goal directed, sometime circumstantial. No known cognitive or memory impairment. I nsight/ Judgment impaired but fair.? Diagnostics Vital Signs (24Hr): Vital Signs - 24 hr 05/21/21 21:30 05/22/21 06:00 Temperature 98.7 F Pulse Rate 84 85 Respiratory Rate 16 Blood Pressure 131/70 128/65 Pulse Oximetry 98 BMI result Body Mass Index 19.4 Labs Results: 05/18/21 14:32 05/20/21 07:49 Labs: Laboratory Results - last 48 hr 05/20/21 05/22/21 07:49 08:49 Total Bilirubin 1.1 H Direct Bilirubin 0.4 AST 71 H ALT 70 H Alkaline Phosphatase 58 Total Protein 7.3 Albumin 4.6 Hep Bs Antigen Negative Hep Bs Antibody NONREACTIVE Hep B Core Total Ab Nonreactive Hepatitis C Ab (EIA) Nonreactive Imaging Radiology Impressions: ITS Impressions Hand X-Ray 05/17/21 19:17 IMPRESSION: No acute fractures or malalignment. Chest X-Ray 05/18/21 14:19 IMPRESSION: Unremarkable chest examination. Thoracic Spine X-Ray 05/19/21 13:55 IMPRESSION: No fracture seen. Medications Medications Current Medications Al Hydroxide/Mg Hydroxide (Magnesium Hydrox/Alum Hydrox 30 Ml Oral.Susp) 30 ml PO Q6H PRN PRN Reason: Heartburn/Nausea Last Admin: 05/20/21 14:39 Dose: 30 ml Documented by: Calcium Carbonate/Cholecalciferol (Calcium + Vitamin D 250 Mg Tablet) 250 mg PO DAILY AGNES Last Admin: 05/22/21 08:53 Dose: 250 mg Documented by: Chlorpromazine HCl (Chlorpromazine Hcl 25 Mg Tablet) 25 mg PO BEDTIME AGNES Last Admin: 05/21/21 21:54 Dose: 25 mg Documented by: Clonazepam (Clonazepam 0.5 Mg Tablet) 0.5 mg PO BID AGNES Last Admin: 05/22/21 08:52 Dose: 0.5 mg Documented by: Clonidine HCl (Clonidine Hcl 0.1 Mg Tablet) 0.3 mg PO BEDTIME AGNES; Protocol Last Admin: 05/21/21 21:52 Dose: 0.3 mg Documented by: Clonidine HCl (Clonidine Hcl 0.1 Mg Tablet) 0.1 mg PO DAILY AGNES; Protocol Last Admin: 05/22/21 08:52 Dose: 0.1 mg Documented by: Cyclobenzaprine HCl (Cyclobenzaprine Hcl 10 Mg Tablet) 10 mg PO TID PRN PRN Reason: back muscle pain Last Admin: 05/22/21 16:33 Dose: 10 mg Documented by: Hydroxyzine HCl (Hydroxyzine Hcl 50 Mg Tablet) 50 mg PO Q6H PRN PRN Reason: itching, anxiety Ibuprofen (Ibuprofen 600 Mg Tablet) 600 mg PO Q6H PRN PRN Reason: mod pain Last Admin: 05/22/21 17:43 Dose: 600 mg Documented by: Lorazepam (Lorazepam 1 Mg Tablet) 1 mg PO Q6H PRN PRN Reason: Alcohol Withdrawal ONLY Magnesium Hydroxide (Milk Of Magnesia 30 Ml Oral.Susp) 30 ml PO DAILY PRN PRN Reason: Constipation Last Admin: 05/21/21 09:48 Dose: 30 ml Documented by: Multivitamins/Vitamin C (Multivitamin Tablet) 1 tab PO DAILY AGNES Last Admin: 05/22/21 08:53 Dose: 1 tab Documented by: Naproxen (Naproxen 500 Mg Tablet) 500 mg PO BID PRN PRN Reason: Pain, Severe (Pain Scale 7-10) Last Admin: 05/22/21 08:56 Dose: 500 mg Documented by: Spironolactone (Spironolactone 25 Mg Tablet) 100 mg PO BID@0900,1800 [facility]; Protocol Last Admin: 05/22/21 17:38 Dose: 100 mg Documented by: Allergies Allergies Allergy/AdvReac Type Severity Reaction Status Date / Time aripiprazole [From Abilify] Allergy Severe Unknown Verified 05/19/21 18:24 haloperidol [From Haldol] Allergy Severe Confusion Verified 05/20/21 17:52 propranolol Allergy Severe Unknown Verified 05/19/21 18:24 SEASONAL ALLERGIES Allergy Mild STUFFY Uncoded 11/19/19 18:42 NOSE, HEADACHES Assessment & Plan Assessment & Plan (1) Post traumatic stress disorder (PTSD): Status: Acute Code(s): F43.10 - Post-traumatic stress disorder, unspecified Plan Arelis is a 26 y.o. Female who carries a dx of polysubstance abuse, BPD. Pt snorted 28 bags of heroin at home as a suicide attempt after having been sober for 6 months; left a suicide note by her side. She was administered narcan in the ED. Utox was positive for cocaine, fentanyl, and cannabis. Her ethyl alcohol level was negative. In the ED, CBC showed elevated white blood cell count and transaminitis. Chest x-ray was normal. Pt also had xray of R hand due to reportedly punching a door, xray of thoracic spine due to complaining of pain, has demarcated macular erythematous rash on lower R flank that she has been icing. Pt presented as paranoid, labile, and disorganized. While in the ED pt required chemical restraint with haldol and ativan for aggression.? -pt calm on unit; cooperative, friendly, in good behavioal and impulse control. denies SI/HI or AVH; mood improved. Reports MSK back pain; does not want psychotropics -pt not in imminent risk for hard to self/others; pt has made use of therapeutic resources available and does not require locked inpt unit for tx; request for discharge deemed appropriate Plan: 3 day notice doxycycline 100 mg BID as prophylaxis for cellulitis WBC, LFT's tredning back toward normal NSAIDS for back pain added Flexaril for back pain Lidocaine patch I spent minutes with the patient and/or on the patient floor today, greater than?50% of which was spent counseling/coordinating care. Patient educated on: medication risk/benefits and substance abuse Informed Consent: understands Reason for contiued inpatient stay Substantial Risk for: stable for discharge
[2021-05-22] MEDS: cloNIDine HCL 0.1 MG TABLET 0.3 MG PO (21:10)
[2021-05-22] MEDS: chlorproMAZINE HCl 25 MG TABLET PO (21:11)
[2021-05-23 06:00] VITALS: BP 108/55; PULSE 96; RESP 18; TEMP 37; O2SAT 99
[2021-05-23] MEDS: Multivitamin TABLET 1 TAB PO (08:53)
[2021-05-23] MEDS: cloNIDine HCL 0.1 MG TABLET PO (08:53)
[2021-05-23] MEDS: clonazePAM 0.5 MG TABLET PO ×2 (08:53→20:58)
[2021-05-23] MEDS: Calcium + Vitamin D 250 MG TABLET PO (08:53)
[2021-05-23] MEDS: Spironolactone 25 MG TABLET 100 MG PO ×2 (08:53→18:25)
[2021-05-23] MEDS: Cyclobenzaprine HCl 10 MG TABLET PO ×3 (08:55→20:58)
[2021-05-23] MEDS: NaPROXEN 500 MG TABLET PO ×2 (09:21→20:57)
--- NOTE | 2021-05-23 12:25 | P.PNPSI_ITS ---
Subjective Subjective Date of Service: 05/23/21 Reason For Visit: Heroine OD, suicide attempt Interim History: Patient reports her back is feeling much better and thinks that Flexeril has h elped She reports overall in a better mood and denies any SI. She is anxious about her disposition plan as she cannot return home at this point and may end up going to a senior living. Patient has the insight to say that when she gets anxious she she avoids such feelings with anger. However she is very proud of herself for being able to resist the urge to get angry and saying that typically she would be yelling and acting tough but this time around she has been able to keep herself in control. Accounting Manager Assistant Controller discussed using Thorazine as a p.r.n. for the times when she is feeling extra anxious or angry and patient agrees to a trial as she has tolerated it at bedtime for years. Patient thinks she will likely discharge tomorrow and is considering going to a hotel into her mother agrees to let her come. Accounting Manager Assistant Controller discussed therapy options and patient shared that she has greatly benefited from being in a DBT group and working with her therapist. Mental Status Exam Mental Status Exam Narrative: A/O; in hospital attire, long dyed hair, piercing. good eye contact, attentive. No Tics or Tremors. No abnormal involuntary movements. Pt is calm, cooperative and friendly; spontaneous, non-pressured speech with regular rate and rhythm, normal volume and prosody. No prolonged speech latency or dysarthria. Mood is ?good,? affect is congruent; Currently denies SI/SIB/HI upon inquiry. Denies A/VH. No paranoid delusional thought content expressed. Thoughts are goal directed and mostly linear though sometimes circumstantial.? No known cognitive or memory impairment. Insight/ Judgment are fair.? Diagnostics Vital Signs (24Hr): Vital Signs - 24 hr 05/22/21 18:00 05/23/21 06:00 Temperature 98.5 F 98.6 F Pulse Rate 80 96 Respiratory Rate 18 Blood Pressure 118/75 108/55 L Pulse Oximetry 99 BMI result Body Mass Index 19.4 Labs Results: 05/18/21 14:32 05/20/21 07:49 Labs: Laboratory Results - last 48 hr 05/20/21 05/22/21 07:49 08:49 Total Bilirubin 1.1 H Direct Bilirubin 0.4 AST 71 H ALT 70 H Alkaline Phosphatase 58 Total Protein 7.3 Albumin 4.6 Hep Bs Antigen Negative Hep Bs Antibody NONREACTIVE Hep B Core Total Ab Nonreactive Hepatitis C Ab (EIA) Nonreactive Imaging Radiology Impressions: ITS Impressions Hand X-Ray 05/17/21 19:17 IMPRESSION: No acute fractures or malalignment. Chest X-Ray 05/18/21 14:19 IMPRESSION: Unremarkable chest examination. Thoracic Spine X-Ray 05/19/21 13:55 IMPRESSION: No fracture seen. Medications Medications Current Medications Al Hydroxide/Mg Hydroxide (Magnesium Hydrox/Alum Hydrox 30 Ml Oral.Susp) 30 ml PO Q6H PRN PRN Reason: Heartburn/Nausea Last Admin: 05/20/21 14:39 Dose: 30 ml Documented by: Calcium Carbonate/Cholecalciferol (Calcium + Vitamin D 250 Mg Tablet) 250 mg PO DAILY AGNES Last Admin: 05/23/21 08:53 Dose: 250 mg Documented by: Chlorpromazine HCl (Chlorpromazine Hcl 25 Mg Tablet) 25 mg PO BEDTIME AGNES Last Admin: 05/22/21 21:11 Dose: 25 mg Documented by: Clonazepam (Clonazepam 0.5 Mg Tablet) 0.5 mg PO BID AGNES Last Admin: 05/23/21 08:53 Dose: 0.5 mg Documented by: Clonidine HCl (Clonidine Hcl 0.1 Mg Tablet) 0.3 mg PO BEDTIME AGNES; Protocol Last Admin: 05/22/21 21:10 Dose: 0.3 mg Documented by: Clonidine HCl (Clonidine Hcl 0.1 Mg Tablet) 0.1 mg PO DAILY AGNES; Protocol Last Admin: 05/23/21 08:53 Dose: 0.1 mg Documented by: Cyclobenzaprine HCl (Cyclobenzaprine Hcl 10 Mg Tablet) 10 mg PO TID PRN PRN Reason: back muscle pain Last Admin: 05/23/21 08:55 Dose: 10 mg Documented by: Hydroxyzine HCl (Hydroxyzine Hcl 50 Mg Tablet) 50 mg PO Q6H PRN PRN Reason: itching, anxiety Ibuprofen (Ibuprofen 600 Mg Tablet) 600 mg PO Q6H PRN PRN Reason: mod pain Last Admin: 05/22/21 17:43 Dose: 600 mg Documented by: Lorazepam (Lorazepam 1 Mg Tablet) 1 mg PO Q6H PRN PRN Reason: Alcohol Withdrawal ONLY Magnesium Hydroxide (Milk Of Magnesia 30 Ml Oral.Susp) 30 ml PO DAILY PRN PRN Reason: Constipation Last Admin: 05/21/21 09:48 Dose: 30 ml Documented by: Multivitamins/Vitamin C (Multivitamin Tablet) 1 tab PO DAILY AGNES Last Admin: 05/23/21 08:53 Dose: 1 tab Documented by: Naproxen (Naproxen 500 Mg Tablet) 500 mg PO BID PRN PRN Reason: Pain, Severe (Pain Scale 7-10) Last Admin: 05/23/21 09:21 Dose: 500 mg Documented by: Spironolactone (Spironolactone 25 Mg Tablet) 100 mg PO BID@0900,1800 [facility]; Protocol Last Admin: 05/23/21 08:53 Dose: 100 mg Documented by: Allergies Allergies Allergy/AdvReac Type Severity Reaction Status Date / Time aripiprazole [From Abilify] Allergy Severe Unknown Verified 05/19/21 18:24 haloperidol [From Haldol] Allergy Severe Confusion Verified 05/20/21 17:52 propranolol Allergy Severe Unknown Verified 05/19/21 18:24 SEASONAL ALLERGIES Allergy Mild STUFFY Uncoded 11/19/19 18:42 NOSE, HEADACHES Assessment & Plan Assessment & Plan (1) Post traumatic stress disorder (PTSD): Status: Acute Code(s): F43.10 - Post-traumatic stress disorder, unspecified Plan Arelis is a 26 y.o. Female who carries a dx of polysubstance abuse, BPD. Pt snorted 28 bags of heroin at home as a suicide attempt after having been sober f or 6 months; left a suicide note by her side. She was administered narcan in the ED. Utox was positive for cocaine, fentanyl, and cannabis. Her ethyl alcohol level was negative. In the ED, CBC showed elevated white blood cell count and transaminitis. Chest x-ray was normal. Pt also had xray of R hand due to reportedly punching a door, xray of thoracic spine due to complaining of pain, has demarcated macular erythematous rash on lower R flank that she has been icing. Pt presented as paranoid, labile, and disorganized. While in the ED pt required chemical restraint with haldol and ativan for aggression.? -pt calm on unit; cooperative, friendly, in good behavioral and impulse control. denies SI/HI or AVH; mood improved. Reports MSK back pain; does not want any additional med managment for mood/anxiety as she is involved in DBT group and has an outpatient therapist with whom she has a good rapport -patient is in a good mood and optimistic. She is somewhat anxious about her relationship with her mother and not being able to return home, however she feels she will be able to cope with that. She is future oriented, looking forward to getting back to work and continuing with therapy. pt not in imminent risk for hard to self/others; pt has made use of therapeutic resources available and does not require locked inpt unit for tx; request for discharge deemed appropriate Plan: 3 day notice doxycycline 100 mg BID as prophylaxis for cellulitis WBC, LFT's tredning back toward normal NSAIDS for back pain added Flexaril for back pain added thorazine 25mg prn for anxiety/anger Lidocaine patch I spent minutes with the patient and/or on the patient floor today, greater than?50% of which was spent counseling/coordinating care. Patient educated on: diagnosis and medication risk/benefits Informed Consent: understands Reason for contiued inpatient stay Substantial Risk for: stable for discharge
[2021-05-23] MEDS: Ibuprofen 600 MG TABLET PO (14:13)
[2021-05-23 20:45] VITALS: BP 120/65; PULSE 90; RESP 16; TEMP 37; O2SAT 100
[2021-05-23] MEDS: cloNIDine HCL 0.1 MG TABLET 0.3 MG PO (20:57)
[2021-05-23] MEDS: chlorproMAZINE HCl 25 MG TABLET PO (20:57)
[2021-05-24 07:30] LABS: Hepatitis A Antibody IgM 0.31 Index (0-0.79); ~Hepatitis A Antibody IgM Nonreactive (Nonreactive)
[2021-05-24] MEDS: Spironolactone 25 MG TABLET 100 MG PO ×2 (08:08→17:08)
[2021-05-24] MEDS: Calcium + Vitamin D 250 MG TABLET PO (08:08)
[2021-05-24] MEDS: Multivitamin TABLET 1 TAB PO (08:08)
[2021-05-24] MEDS: cloNIDine HCL 0.1 MG TABLET PO (08:08)
[2021-05-24] MEDS: clonazePAM 0.5 MG TABLET PO ×2 (08:08→20:26)
[2021-05-24 08:09] VITALS: BP 108/56; PULSE 98; RESP 18; TEMP 36.3; O2SAT 100
[2021-05-24] MEDS: NaPROXEN 500 MG TABLET PO ×2 (08:50→20:26)
[2021-05-24] MEDS: Cyclobenzaprine HCl 10 MG TABLET PO ×3 (08:50→20:25)
[2021-05-24] MEDS: chlorproMAZINE HCl 25 MG TABLET 12.5 MG PO (14:17)
[2021-05-24 17:10] VITALS: BP 133/81; PULSE 97; RESP 18; O2SAT 100
[2021-05-24] MEDS: Ibuprofen 600 MG TABLET PO (19:37)
[2021-05-24] MEDS: chlorproMAZINE HCl 25 MG TABLET PO (20:26)
[2021-05-24] MEDS: cloNIDine HCL 0.1 MG TABLET 0.3 MG PO (20:27)
--- NOTE | 2021-05-24 21:06 | P.PNPSI_ITS ---
Subjective Subjective Date of Service: 05/24/21 Reason For Visit: Heroine OD, suicide attempt Interim History: pt remains overall feeling better; she reports feeling emotional today after p wilfredo call w/ mom who said she was upset at patients behavior. Pt was tearful and confused, thinking she's working her hardest and doing best she can, however after conversation was worried maybe she wasn't. Pt however was able to process her feelings and use DBT grounding skills to calm herself down; she shared how she has trouble knowing which of her thoughts/feelings are true vs just thoughts. Pt was ambivalent about whether she needed Thorazine prn. She thinks she'll go to [facility] and then to her aunts in [place]. Mental Status Exam Mental Status Exam Narrative: A/O; in hospital attire, long dyed hair, piercing. good eye contact, attentive. No Tics or Tremors. No abnormal involuntary movements. Pt is tearful, but able to become calm; she is cooperative and friendly; spontaneous, non-pressured speech with regular rate and rhythm, normal volume and prosody. No prolonged speech latency or dysarthria. Mood is ?anxious,? affect is congruent; Currently denies SI/SIB/HI upon inquiry. Denies A/VH. No paranoid delusional thought content expressed. Thoughts are goal directed and mostly linear though sometimes circumstantial.? No known cognitive or memory impairment. Insight/ Judgment are fair.? Diagnostics Vital Signs (24Hr): Vital Signs - 24 hr 05/24/21 08:09 05/24/21 17:10 Temperature 97.3 F Pulse Rate 98 97 Respiratory Rate 18 18 Blood Pressure 108/56 L 133/81 Pulse Oximetry 100 100 BMI result Body Mass Index 19.4 Labs Results: 05/18/21 14:32 05/20/21 07:49 Labs: Laboratory Results - last 48 hr 05/20/21 07:49 Hepatitis A IgM Ab Nonreactive Imaging Radiology Impressions: ITS Impressions Hand X-Ray 05/17/21 19:17 IMPRESSION: No acute fractures or malalignment. Chest X-Ray 05/18/21 14:19 IMPRESSION: Unremarkable chest examination. Thoracic Spine X-Ray 05/19/21 13:55 IMPRESSION: No fracture seen. Medications Medications Current Medications Al Hydroxide/Mg Hydroxide (Magnesium Hydrox/Alum Hydrox 30 Ml Oral.Susp) 30 ml PO Q6H PRN PRN Reason: Heartburn/Nausea Last Admin: 05/20/21 14:39 Dose: 30 ml Documented by: Calcium Carbonate/Cholecalciferol (Calcium + Vitamin D 250 Mg Tablet) 250 mg PO DAILY [facility] Last Admin: 05/24/21 08:08 Dose: 250 mg Documented by: Chlorpromazine HCl (Chlorpromazine Hcl 25 Mg Tablet) 25 mg PO BEDTIME AGNES Last Admin: 05/24/21 20:26 Dose: 25 mg Documented by: Chlorpromazine HCl (Chlorpromazine Hcl 25 Mg Tablet) 12.5 mg PO Q4H PRN PRN Reason: Anxiety Last Admin: 05/24/21 14:17 Dose: 12.5 mg Documented by: Clonazepam (Clonazepam 0.5 Mg Tablet) 0.5 mg PO BID AGNES Last Admin: 05/24/21 20:26 Dose: 0.5 mg Documented by: Clonidine HCl (Clonidine Hcl 0.1 Mg Tablet) 0.3 mg PO BEDTIME [facility]; Protocol Last Admin: 05/24/21 20:27 Dose: 0.3 mg Documented by: Clonidine HCl (Clonidine Hcl 0.1 Mg Tablet) 0.1 mg PO DAILY [facility]; Protocol Last Admin: 05/24/21 08:08 Dose: 0.1 mg Documented by: Cyclobenzaprine HCl (Cyclobenzaprine Hcl 10 Mg Tablet) 10 mg PO TID PRN PRN Reason: back muscle pain Last Admin: 05/24/21 20:25 Dose: 10 mg Documented by: Hydroxyzine HCl (Hydroxyzine Hcl 50 Mg Tablet) 50 mg PO Q6H PRN PRN Reason: itching, anxiety Ibuprofen (Ibuprofen 600 Mg Tablet) 600 mg PO Q6H PRN PRN Reason: mod pain Last Admin: 05/24/21 19:37 Dose: 600 mg Documented by: Magnesium Hydroxide (Milk Of Magnesia 30 Ml Oral.Susp) 30 ml PO DAILY PRN PRN Reason: Constipation Last Admin: 05/21/21 09:48 Dose: 30 ml Documented by: Multivitamins/Vitamin C (Multivitamin Tablet) 1 tab PO DAILY AGNES Last Admin: 05/24/21 08:08 Dose: 1 tab Documented by: Naproxen (Naproxen 500 Mg Tablet) 500 mg PO BID PRN PRN Reason: Pain, Severe (Pain Scale 7-10) Last Admin: 05/24/21 20:26 Dose: 500 mg Documented by: Spironolactone (Spironolactone 25 Mg Tablet) 100 mg PO BID@0900,1800 AGN[facility]; Pro tocol Last Admin: 05/24/21 17:08 Dose: 100 mg Documented by: Allergies Allergies Allergy/AdvReac Type Severity Reaction Status Date / Time aripiprazole [From Abilify] Allergy Severe Unknown Verified 05/19/21 18:24 haloperidol [From Haldol] Allergy Severe Confusion Verified 05/20/21 17:52 propranolol Allergy Severe Unknown Verified 05/19/21 18:24 SEASONAL ALLERGIES Allergy Mild STUFFY Uncoded 11/19/19 18:42 NOSE, HEADACHES Assessment & Plan Assessment & Plan (1) Post traumatic stress disorder (PTSD): Status: Acute Code(s): F43.10 - Post-traumatic stress disorder, unspecified Plan Arelis is a 26 y.o. Female who carries a dx of polysubstance abuse, BPD. Pt snorted 28 bags of heroin at home as a suicide attempt after having been sober for 6 months; left a suicide note by her side. She was administered narcan in the ED. Utox was positive for cocaine, fentanyl, and cannabis. Her ethyl alcohol level was negative. In the ED, CBC showed elevated white blood cell count and transaminitis. Chest x-ray was normal. Pt also had xray of R hand due to reportedly punching a door, xray of thoracic spine due to complaining of pain, has demarcated macular erythematous rash on lower R flank that she has been icing. Pt presented as paranoid, labile, and disorganized. While in the ED pt required chemical restraint with haldol and ativan for aggression.? -pt calm on unit; cooperative, friendly, in good behavioral and impulse control. denies SI/HI or AVH; mood improved. Reports MSK back pain; does not want any additional med managment for mood/anxiety as she is involved in DBT group and has an outpatient therapist with whom she has a good rapport -patient is in a good mood and optimistic. She is somewhat anxious about her relationship with her mother and not being able to return home, however she feels she will be able to cope with that. She is future oriented, looking forward to getting back to work and continuing with therapy. pt not in imminent risk for hard to self/others; pt has made use of therapeutic resources available and does not require locked inpt unit for tx; request for discharge deemed a ppropriate 05/24 pt at baseline, able to cope with feelings; talking about dispo Plan: 3 day notice doxycycline 100 mg BID as prophylaxis for cellulitis WBC, LFT's tredning back toward normal NSAIDS for back pain added Flexaril for back pain added thorazine 25mg prn for anxiety/anger Lidocaine patch I spent minutes with the patient and/or on the patient floor today, greater than?50% of which was spent counseling/coordinating care. Patient educated on: therapeutic strategies Informed Consent: understands Reason for contiued inpatient stay Substantial Risk for: stable for discharge
[2021-05-25 07:00] VITALS: BMI 19.8
[2021-05-25 08:03] VITALS: BP 114/58; PULSE 89; RESP 14; TEMP 36.8; O2SAT 95
[2021-05-25] MEDS: Spironolactone 25 MG TABLET 100 MG PO ×2 (08:25→18:59)
[2021-05-25] MEDS: clonazePAM 0.5 MG TABLET PO ×2 (08:25→21:05)
[2021-05-25] MEDS: Calcium + Vitamin D 250 MG TABLET PO (08:26)
[2021-05-25] MEDS: NaPROXEN 500 MG TABLET PO ×2 (08:26→20:57)
[2021-05-25] MEDS: Multivitamin TABLET 1 TAB PO (08:26)
[2021-05-25] MEDS: Cyclobenzaprine HCl 10 MG TABLET PO ×3 (08:27→20:53)
[2021-05-25] MEDS: cloNIDine HCL 0.1 MG TABLET PO (08:28)
--- NOTE | 2021-05-25 10:25 | P.PNPSI_ITS ---
Subjective Subjective Date of Service: 05/25/21 Reason For Visit: Heroine OD, suicide attempt Interim History: pt reports she is doing well, good mood, no SI. Feels ready for discharge. Pt feels stable and optimistic about staying sober. Discussed hx of substance abuse and she reports she rarely drinks alcohol and when she does not more than one drink. She reports she's been sober from opioids for past 6 months until this episode. She reports trials of suboxone which made her dizzy and naltrexone/vivitrol which she said made her suicidal. She feels she can stay sober. Her plan is to go home to her mothers for a week and then visit her aunt in [place] for a month. She feels good about plan and thinks maybe she and mother need a break. She reports sleeping and eating well. Mental Status Exam Mental Status Exam Narrative: A/O; in casual attire, long dyed hair, piercing. good eye contact, attentive. No Tics or Tremors. No abnormal involuntary movements. Behavior calm, friendly, cooperative; spontaneous, non-pressured speech with regular rate and rhythm, normal volume and prosody. No prolonged speech latency or dysarthria. Mood is ?good? affect is congruent; Currently denies SI/SIB/HI upon inquiry. Denies AVH. No paranoid delusional thought content expressed. Thoughts are goal directed and mostly linear though sometimes circumstantial.? No known cognitive or memory impairment. Insight/ Judgment are fair and adequate.? Diagnostics Vital Signs (24Hr): Vital Signs - 24 hr 05/24/21 17:10 05/25/21 08:03 Temperature 98.2 F Pulse Rate 97 89 Respiratory Rate 18 14 Blood Pressure 133/81 114/58 L Pulse Oximetry 100 95 BMI result Body Mass Index 19.4 Labs Results: 05/18/21 14:32 05/20/21 07:49 Labs: Laboratory Results - last 48 hr 05/20/21 07:49 Hepatitis A IgM Ab Nonreactive Imaging Radiology Impressions: ITS Impressions Hand X-Ray 05/17/21 19:17 IMPRESSION: No acute fractures or malalignment. Chest X-Ray 05/18/21 14:19 IMPRESSION: Unremarkable chest examination. Thoracic Spine X-Ray 05/19/21 13:55 IMPRESSION: No fracture seen. Medications Medications Current Medications Al Hydroxide/Mg Hydroxide (Magnesium Hydrox/Alum Hydrox 30 Ml Oral.Susp) 30 ml PO Q6H PRN PRN Reason: Heartburn/Nausea Last Admin: 05/20/21 14:39 Dose: 30 ml Documented by: Calcium Carbonate/Cholecalciferol (Calcium + Vitamin D 250 Mg Tablet) 250 mg PO DAILY [facility] Last Admin: 05/25/21 08:26 Dose: 250 mg Documented by: Chlorpromazine HCl (Chlorpromazine Hcl 25 Mg Tablet) 25 mg PO BEDTIME AGNES Last Admin: 05/24/21 20:26 Dose: 25 mg Documented by: Chlorpromazine HCl (Chlorpromazine Hcl 25 Mg Tablet) 12.5 mg PO Q4H PRN PRN Reason: Anxiety Last Admin: 05/24/21 14:17 Dose: 12.5 mg Documented by: Clonazepam (Clonazepam 0.5 Mg Tablet) 0.5 mg PO BID AGNES Last Admin: 05/25/21 08:25 Dose: 0.5 mg Documented by: Clonidine HCl (Clonidine Hcl 0.1 Mg Tablet) 0.3 mg PO BEDTIME AGNES; Protocol Last Admin: 05/24/21 20:27 Dose: 0.3 mg Documented by: Clonidine HCl (Clonidine Hcl 0.1 Mg Tablet) 0.1 mg PO DAILY AGNES; Protocol Last Admin: 05/25/21 08:28 Dose: 0.1 mg Documented by: Cyclobenzaprine HCl (Cyclobenzaprine Hcl 10 Mg Tablet) 10 mg PO TID PRN PRN Reason: back muscle pain Last Admin: 05/25/21 08:27 Dose: 10 mg Documented by: Hydroxyzine HCl (Hydroxyzine Hcl 50 Mg Tablet) 50 mg PO Q6H PRN PRN Reason: itching, anxiety Ibuprofen (Ibuprofen 600 Mg Tablet) 600 mg PO Q6H PRN PRN Reason: mod pain Last Admin: 05/24/21 19:37 Dose: 600 mg Documented by: Magnesium Hydroxide (Milk Of Magnesia 30 Ml Oral.Susp) 30 ml PO DAILY PRN PRN Reason: Constipation Last Admin: 05/21/21 09:48 Dose: 30 ml Documented by: Multivitamins/Vitamin C (Multivitamin Tablet) 1 tab PO DAILY AGNES Last Admin: 05/25/21 08:26 Dose: 1 tab Documented by: Naproxen (Naproxen 500 Mg Tablet) 500 mg PO BID PRN PRN Reason: Pain, Severe (Pain Scale 7-10) Last Admin: 05/25/21 08:26 Dose: 500 mg Documented by: Spironolactone (Spironolactone 25 Mg Tablet) 100 mg PO BID@0900,1800 AGNES; Protocol Last Admin: 05/25/21 08:25 Dose: 100 mg Documented by: Allergies Allergies Allergy/AdvReac Type Severity Reaction Status Date / Time aripiprazole [From Abilify] Allergy Severe Unknown Verified 05/19/21 18:24 haloperidol [From Haldol] Allergy Severe Confusion Verified 05/20/21 17:52 propranolol Allergy Severe Unknown Verified 05/19/21 18:24 SEASONAL ALLERGIES Allergy Mild STUFFY Uncoded 11/19/19 18:42 NOSE, HEADACHES Assessment & Plan Assessment & Plan (1) Post traumatic stress disorder (PTSD): Status: Acute Code(s): F43.10 - Post-traumatic stress disorder, unspecified Plan Arelis is a 26 y.o. Female who carries a dx of polysubstance abuse, BPD. Pt snorted 28 bags of heroin at home as a suicide attempt after having been sober for 6 months; left a suicide note by her side. She was administered narcan in the ED. Utox was positive for cocaine, fentanyl, and cannabis. Her ethyl alcohol level was negative. In the ED, CBC showed elevated white blood cell count and transaminitis. Chest x-ray was normal. Pt also had xray of R hand due to reportedly punching a door, xray of thoracic spine due to complaining of pain, has demarcated macular erythematous rash on lower R flank that she has been icing. Pt presented as paranoid, labile, and disorganized. While in the ED pt required chemical restraint with haldol and ativan for aggression.? -pt calm on unit; cooperative, friendly, in good behavioral and impulse control. denies SI/HI or AVH; mood improved. Reports MSK back pain; does not want any additional med managment for mood/anxiety as she is involved in DBT group and has an outpatient therapist with whom she has a good rapport -patient is in a good mood and optimistic. She is somewhat anxious about her relationship with her mother and not being able to return home, however she feels she will be able to cope with that. She is future oriented, looking forward to getting back to work and continuing with therapy. pt not in imminent risk for hard to self/others; pt has made use of therapeutic resources available and does not require locked inpt unit for tx; request for discharge deemed appropriate 05/25 baseline, good mood, no SI, future oriented, optimistic; 3 day due; pt not in imminent risk for harm to self or others and appropriate for discharge. Plan: 3 day notice doxycycline 100 mg BID as prophylaxis for cellulitis WBC, LFT's tredning back toward normal NSAIDS for back pain added Flexaril for back pain added thorazine 25mg prn for anxiety/anger Lidocaine patch I spent minutes with the patient and/or on the patient floor today, greater than?50% of which was spent counseling/coordinating care. Patient educated on: diagnosis, substance abuse and therapeutic strategies Informed Consent: understands Reason for contiued inpatient stay Substantial Risk for: stable for discharge
[2021-05-25 18:00] VITALS: BP 107/58; PULSE 81; RESP 16; TEMP 37.1; O2SAT 100
[2021-05-25] MEDS: cloNIDine HCL 0.1 MG TABLET 0.3 MG PO (21:04)
[2021-05-25] MEDS: chlorproMAZINE HCl 25 MG TABLET PO (21:05)
[2021-05-26 06:00] VITALS: BP 134/78; PULSE 98; RESP 16; TEMP 36.3; O2SAT 97
[2021-05-26] MEDS: cloNIDine HCL 0.1 MG TABLET PO (08:10)
[2021-05-26] MEDS: Multivitamin TABLET 1 TAB PO (08:10)
[2021-05-26] MEDS: Cyclobenzaprine HCl 10 MG TABLET PO ×2 (08:10→14:09)
[2021-05-26] MEDS: clonazePAM 0.5 MG TABLET PO (08:10)
[2021-05-26] MEDS: Spironolactone 25 MG TABLET 100 MG PO (08:10)
[2021-05-26] MEDS: Calcium + Vitamin D 250 MG TABLET PO (08:10)
[2021-05-26] MEDS: NaPROXEN 500 MG TABLET PO (08:11)
--- NOTE | 2021-05-26 11:15 | PM.PSYDC ---
DS: Providers Provider Date of Service: 05/26/21 Date of admission: 05/18/21 20:06 Date of discharge: 05/26/21 Primary care physician: Unknown Physician Admitting clinician: Deb Richardson Consults: 05/20/21 07:00 Consult to Hospitalist Routine Consulting Provider: Hospitalist Reason For Exam: right sided flank pain above kidney 05/21/21 13:42 Consult to Hospitalist Routine Consulting Provider: Hospitalist Reason For Exam: R sided flank pain above kidney Attending physician on discharge: Deyvi Healy DS: Diagnosis Discharge Diagnosis (1) Post traumatic stress disorder (PTSD): Status: Acute DS: Medications Discharge Medications Home Medications: Home Medications Medication Instructions Recorded Confirmed acetaminophen 325 mg tablet 650 mg PO Q6H PRN 05/18/21 05/18/21 biotin 1 tab PO DAILY 05/18/21 05/18/21 calcium citrate 200 mg (950 mg) 200 mg PO DAILY 05/18/21 05/18/21 tablet cetirizine 10 mg tablet (Zyrtec) 10 mg PO DAILY 05/18/21 05/18/21 cholecalciferol (vitamin D3) 25 1 tab PO DAILY 05/18/21 05/18/21 mcg (1,000 unit) tablet ibuprofen 400 mg tablet 400 mg PO Q6H PRN 05/18/21 05/18/21 medroxyprogesterone 150 mg/mL 1 ml IM [id number] 05/18/21 05/18/21 intramuscular syringe Previous Rx's Medication Instructions Recorded chlorpromazine 25 mg tablet See Rx Instructions .ROUTE 05/26/21 .COMPLEX 30 Days #45 tab clonazepam 0.5 mg tablet 0.5 mg PO BID PRN 30 Days #60 tab 05/26/21 clonidine HCl 0.1 mg tablet See Rx Instructions .ROUTE 05/26/21 .COMPLEX 30 Days #120 tab cyclobenzaprine 10 mg tablet 10 mg PO BID PRN 14 Days #28 tab 05/26/21 spironolactone 100 mg tablet 100 mg PO BID 30 Days #60 tab 05/26/21 Mental Status Exam Mental Status Exam Narrative: A/O; in casual attire, long dyed hair, piercing. good eye contact, attentive. No Tics or Tremors. No abnormal involuntary movements. Behavior calm, friendly, cooperative; spontaneous, non-pressured speech with regular rate and rhythm, normal volume and prosody. No prolonged speech latency or dysarthria. Mood is ?good? affect is congruent; Currently denies SI/SIB/HI upon inquiry. Denies AVH. No paranoid delusional thought content expressed. Thought process is goal directed, linear and logical; sometimes mildly circumstantial. ? No known cognitive or memory impairment. Insight/ Judgment are fair and adequate.? Data Data Completed and Pending Completed studies during hospitalization [Text1]: 05/20/21 05/20/21 05/22/21 07:49 07:49 08:49 Sodium 140 Potassium 3.6 Chloride 101 Carbon Dioxide 24 Anion Gap 19 BUN 10 Creatinine 0.71 Estim Creat Clear Calc 90.5 Estimated GFR > 60 Random Glucose 83 Calcium 9.8 Total Bilirubin 1.1 H 1.1 H Direct Bilirubin 0.4 AST 172 H 71 H ALT 98 H 70 H Alkaline Phosphatase 59 58 Total Protein 6.5 7.3 Albumin 4.2 4.6 Hepatitis A IgM Ab Nonreactive Hep Bs Antigen Negative Hep Bs Antibody NONREACTIVE Hep B Core Total Ab Nonreactive Hepatitis C Ab (EIA) Nonreactive Imaging Diagnostic Imaging Impressions Hand X-Ray 05/17/21 19:17 IMPRESSION: No acute fractures or malalignment. Chest X-Ray 05/18/21 14:19 IMPRESSION: Unremarkable chest examination. Thoracic Spine X-Ray 05/19/21 13:55 IMPRESSION: No fracture seen. DS: Summary Hospital Course Hospital Course: Arelis is a 26 y.o. Female who carries a dx of polysubstance abuse, BPD. Pt snorted 28 bags of heroin at home as a suicide attempt after having been sober for 6 months; left a suicide note by her side. She was administered narcan in the ED. Utox was positive for cocaine, fentanyl, and cannabis. Her ethyl alcohol level was negative. In the ED, CBC showed elevated white blood cell count and transaminitis. Chest x-ray was normal. Pt also had xray of R hand due to reportedly punching a door, xray of thoracic spine due to complaining of pain, has demarcated macular erythematous rash on lower R flank that she has been icing. Pt presented as paranoid, labile, and disorganized. While in the ED pt required chemical restraint with haldol and ativan for aggression.? Once admitted, patient reported depression and was intermittently tearful, however denied SI which remained resolved. She did not want medication changes. Patient complained of right sided back pain which was assessed by hospitalist ( Seems more likely musculoskeletal pain from scratch injury...Continue NSAIDs, warm packs...No antibiotics are warranted this does not appear to be infectious); Flexeril was started which helped fully resolve pain. Patient had mildly elevated LFTs however this trended back towards normal. Throughout patient's stay in the unit, she was engaged in treatment, attending groups and diligently working on her DBT skills workbook, utilizing coping skills effectively. Patient was appropriate with peers and staff and did not exhibit any dangerous behavior. She continued to deny any SI at all saying that this past event was a true moment of clarity for her and she is grateful she is alive, optimistic about continuing to pursue treatment in staying sober and overall future oriented. Patient had ongoing relational strife with her mother and at 1st mother would not let patient return to the house and patient was considering either assisted or [facility] respite bed; eventually patient and mom decided that patient would return home but they would have a vacation from each other and patient would visit her aunt in [place]. Patient's Thorazine which he takes at night was extended to allow is small dose as a p.r.n. for anxiety and patient will continue to utilize as an outpatient. She remained on clonazepam 0.5 mg b.i.d.; patient has been getting this for a long time as an outpatient which pharmacy records indicate and while there are risks involved with this medication, it was concluded that there was not enough time to taper her off and discontinue while on the inpatient unit and that this will be best left to her outpatient provider with whom she has a good relationship. Soa Engineer discussed substance history with her and maintenance medications however patient did not tolerate either Suboxone whole naltrexone/Vivitrol and feels that she will remain sober without it. Patient signed a 3 day notice which came due. She is at her baseline and remains in a good mood, without any SI, future oriented and demonstrating good behavioral and impulse control. She has made good use of therapeutic resources available on the unit and is appropriate to continue treatment as an outpatient. Patient of course remains vulnerable to relapse, will very likely continue to struggle with emotional reactivity and at some point in the future may again become unsafe. However these issues are chronic and require long-term outpatient therapy, of which patient is involved. Patient is not in imminent risk of harm to herself or others and is a appropriate for discharge. Her request is honored. Diagnosis: Patient has PTSD and borderline personality disorder; there was some discussion of bipolar type II however this was not clear and at this point fiction and nonfiction writer prose considers that both PTSD and borderline traits can explain her recent episode. Time spent discussing smoking cessation with patient: 3 to 10 minutes Status at Discharge Cognitive/behavioral status at discharge: Risk assessment at time of discharge:? Patient was interviewed prior to discharge and found to be fully oriented and without any SI or HI. Patient has insight and demonstrates good judgment in terms of wanting to pursue treatment. Patient is not in imminent risk of harm to self or others and has a safety plan that includes presenting to the closest ER or calling 911 if feeling unsafe.? Functional status at discharge: independent ambulation Overall status at discharge: patient is back to baseline Time Spent with Patient Time attestation: Total time spent providing and/or coordinating discharge services: Time spent: Less than 30 minutes Discharge Plan Discharge Patient Disposition: Home, Self-Care Discharge Diagnosis: PTSD, chronic with acute exacerbation; Borderline personality DO; opiate abuse Referrals: Therapy: Alexandria Macdonald [Other] - 06/01/21 1:00 pm (This appointment is in-office) Psychiatric Med Management: Jaycee Frost [Other] - 06/01/21 3:00 pm (This is a Telehealth appointment) Wanda Han MD [Physician] - 1 Week Discharge Medications: New cyclobenzaprine 10 mg Tablet 10 mg PO BID PRN (Reason: back muscle pain) 14 Days Qty: 28 0RF Continued acetaminophen 325 mg Tablet 650 mg PO Q6H PRN (Reason: Pain) 0RF cetirizine [Zyrtec] 10 mg Tablet 10 mg PO DAILY 0RF ibuprofen 400 mg Tablet 400 mg PO Q6H PRN (Reason: Pain) 0RF calcium citrate 200 mg (950 mg) Tablet 200 mg PO DAILY 0RF medroxyprogesterone 150 mg/mL syringe 1 ml IM [id number] 0RF cholecalciferol (vitamin D3) 25 mcg (1,000 unit) tablet 1 tab PO DAILY 0RF biotin 1 tab PO DAILY 0RF Changed clonidine HCl 0.1 mg tablet See Rx Instructions .ROUTE .COMPLEX 30 Days Qty: 120 0RF Rx Instructions: take 1 tablet daily and take 3 tablets at bedtime clonazepam 0.5 mg tablet 0.5 mg PO BID PRN (Reason: panic) 30 Days Qty: 60 0RF spironolactone 100 mg tablet 100 mg PO BID 30 Days Qty: 60 0RF chlorpromazine 25 mg tablet See Rx Instructions .ROUTE .COMPLEX 30 Days Qty: 45 0RF Rx Instructions: take 1/2 to 1 tablet daily as needed for anxiety; take 1 tablet at every bedtime Discontinued clonidine HCl 0.1 mg tablet 0.1 mg PO DAILY 0RF Discharge Orders: Discharge Order (Routine); Ordered 05/26/21 Ordered By: Deyvi Healy Diet: regular diet Activity on Discharge: As tolerated Stand Alone Forms: Patient Portal Discharge page, Community Support Care Plan Goals: Maintain mood and safe behaviors Take medications as prescribed Continue to pursue sobriety Practice coping skills Continue with outpatient providers and reach out to them as needed Health Concerns: Mood stability and behaviors Sobriety Plan of Treatment: Follow up with your PCP, psychiatric provider and other outpatient providers regarding above concerns Take medications as prescribed Assessment: Risk assessment at time of discharge:? Patient was interviewed prior to discharge and found to be fully oriented and without any SI or HI. Patient has insight and demonstrates good judgment in terms of wanting to pursue treatment. Patient is not in imminent risk of harm to self or others and has a safety plan that includes presenting to the closest ER or calling 911 if feeling unsafe.? Patient has been observed closely by nursing and unit staff throughout admission; patient has not engaged in any behaviors that suggest dangerousness to self or others and has demonstrated appropriate behaviors and impulse control
== END 2021-05-26 17:04 | disposition home or self-care (01) | DRG 883 ==
LOC: HO.ED 05-18 09:50 → HO.PM5 05-18 20:17
PROVIDERS: Emergency Medicine; Nurse Practitioner Acute Care; Physician Assistant; Registered Nurse; Admitting Provider Clinical Nurse Specialist Psychiatric/Mental Health, Adult; Emergency Provider Internal Medicine; Visit Provider Psychiatry & Neurology Psychiatry
DX: F60.3 Borderline personality disorder (principal); R45.851 Suicidal ideations; F43.10 Post-traumatic stress disorder, unspecified; T40.1X2A Poisoning by heroin, intentional self-harm, initial encounter; Y92.009 Unspecified place in unspecified non-institutional (private) residence as the place of occurrence of the external cause; Z20.822 Contact with and (suspected) exposure to COVID-19; Z91.51 Personal history of suicidal behavior; Z79.1 Long term (current) use of non-steroidal anti-inflammatories (NSAID); Z79.899 Other long term (current) drug therapy
CPT/HCPCS: 36415; 71045; 72072; 73130; 80053; 80061; 80076; 80143; 80179; 80307; 81001; 81025; 82077; 82607; 82746; 82947; 83036; 83735; 84439; 84443; 84484; 85025; 86704; 86706; 86709; 86803; 87340; 87635; 93005; 99285; J1200; J2060; J2405

== ENCOUNTER → 2022-11-19 13:07 | Outpatient (BNVA) | payer OTHER, SELFPAY | PROVIDERS: PCP Internal Medicine; Visit Provider Nurse Practitioner Family ==

== ENCOUNTER 2024-06-12 14:06 | Emergency (ER) | payer OTHER, SELFPAY ==
--- NOTE | 2024-06-12 14:43 | ECG_ITS ---
Test Reason : qtc check Blood Pressure : */* mmHG Vent. Rate : 63 BPM Atrial Rate : 63 BPM P-R Int : 146 ms QRS Dur : 84 ms QT Int : 422 ms P-R-T Axes : 30 76 67 degrees QTcB Int : 431 ms Normal sinus rhythm Normal ECG When compared with ECG of 17-May-2021 18:15, Vent. rate has decreased by [address] no longer depressed in Anterior leads Non-specific change in ST segment in Lateral leads Referred By: Vicki Marino Electronically Signed By: Sean Dobbins
--- NOTE | 2024-06-12 14:43 | ED_ITS ---
HPI - General Adult General Chief complaint: Psychiatric Symptoms Stated complaint: INCREASED PARANOIA PER EMS Time Seen by Provider: 06/12/24 14:41 Source: patient and EMS Mode of arrival: EMS Limitations: no limitations History of Present Illness ED Provider: Oanh Marino PA-C HPI narrative: Patient is a 29 year old assigned female at with a history of PTSD, borderline personality disorder, and paranoid schizophrenia presenting to the emergency department today with increased paranoia and SI. Patient states that nothing of what is on her section 12 is true and the staff that sent her here is lying. Section 12 states that the patient was making suicidal statements and acting paranoid around her phone being hacked. Patient denies any dizziness, lightheadedness, abdominal pain, nausea, vomiting, fever, chills, blurry vision, double vision, loss of vision, chest pain, difficulty breathing, shortness of breath, back pain, night sweats, pain with urination, increased urinary frequency, increased urinary urgency, blood in her urine or stool, syncope or a near syncopal episode, recent trauma or falls, bowel incontinence, bladder incontinence, or any other complaints at this time. Relieving factors: none Exacerbating factors: none Associated symptoms: denies other symptoms Treatments prior to arrival: none Related Data Home Medications ?Medication ?Instructions ?Recorded ?Confirmed calcium citrate 200 mg PO DAILY 05/18/21 06/12/24 cholecalciferol (vitamin D3) 25 1 tab PO DAILY 05/18/21 06/12/24 mcg (1,000 unit) tablet clonazepam 0.5 mg tablet 0.5 mg PO DAILY 06/12/24 06/12/24 clonazepam 0.5 mg tablet (Klonopin) 0.5 mg PO QPM 06/12/24 06/12/24 clonazepam 1 mg tablet 1 mg PO BID 06/12/24 06/12/24 diphenhydramine HCl 25 mg capsule 25 - 50 mg PO BID PRN Anxiety 06/12/24 06/12/24 (Banophen) famotidine 40 mg tablet 40 mg PO BID 06/12/24 06/12/24 hydroxyzine pamoate 25 mg capsule 25 mg PO BID PRN Anxiety 06/12/24 06/12/24 hydroxyzine pamoate 25 mg capsule 50 mg PO BEDTIME 06/12/24 06/12/24 methylphenidate HCl 5 mg tablet 10 mg PO DAILY 06/12/24 06/12/24 methylphenidate HCl 5 mg tablet See Rx Instructions .Route .COMPLEX 06/12/24 06/12/24 olanzapine 5 mg tablet 5 mg PO BEDTIME 06/12/24 06/12/24 Previous Rx's ?Medication ?Instructions ?Recorded clonidine HCl 0.1 mg tablet See Rx Instructions .Route 05/26/21 .COMPLEX 30 days #120 tabs spironolactone 100 mg tablet 100 mg PO BID 30 days #60 tabs 05/26/21 Allergies Allergy/AdvReac Type Severity Reaction Status Date / Time aripiprazole [From Abilify] Allergy Severe Unknown Verified 06/12/24 14:56 haloperidol [From Haldol] Allergy Severe Confusion Verified 06/12/24 14:56 propranolol Allergy Severe Unknown Verified 06/12/24 14:56 fluphenazine [From Prolixin] AdvReac Severe dystonia Verified 06/12/24 14:56 halobetasol AdvReac Intermediate Unknown Verified 06/12/24 14:56 SEASONAL ALLERGIES Allergy Mild STUFFY Uncoded 06/12/24 14:56 NOSE, HEADACHES propanolol AdvReac Intermediate Unknown Uncoded 06/12/24 14:56 Review of Systems 2 Constitutional: Constitutional: Reports no additional constitutional complaints, Denies chills, Denies fever(s) and Denies night sweats Eyes: Eyes: Reports no additional eye complaints, Denies blurry vision, Denies change in vision, Denies diplopia, Denies eye discharge, Denies loss of vision and Denies eye pain ENT: Denies dizziness Cardiovascular: Cardiovascular: Reports no additional cardiovascular complaints, Denies chest pain, Denies lightheadedness, Denies Loss of Consciousness and Denies dyspnea Respiratory: Respiratory: Reports no additional respiratory complaints and Denies dyspnea Gastrointestinal: Gastrointestinal: Reports no additional gastrointestinal complaints, Denies abdominal pain, Denies melena, Denies hematochezia, Denies change in bowel habits and Denies change in stool character Genitourinary: Genitourinary: Denies hematuria, Denies urinary frequency, Denies dysuria, Denies urinary incontinence, Denies urinary hesitancy and Denies urinary urgency Musculoskeletal: Musculoskeletal: Reports no additional musculoskeletal complaints, Denies numbness and Denies tingling Neurologic: Denies dizziness, Denies loss of vision, Denies numbness and Denies tingling Psychiatric: Psychiatric: Reports no additional psychiatric complaints Endocrine: Endocrine: Reports no additional endocrine complaints Hematologic/Lymphatic: Hematologic/Lymphatic: Reports no additional hematologic/lymphatic complaints Allergic/Immunologic: Allergic/Immunologic: Reports no additional allergic/immunologic complaints PMFSH Past Medical History Attestation statement: The following information was validated with the patient. Source: old records reviewed and nursing notes reviewed Medical History Anxiety Depressed Psychosis History of ADHD PTSD (post-traumatic stress disorder) Depression Medical clearance for psychiatric admission Pelvic congestion syndrome Surgical History H/O foot surgery Family History Family History Mother HIV disease Mother AIDS Social History Social History Household Members: Family and None Housing: Apartment Do you presently have visiting nurse or other home services: No Patient Tobacco Use Status: Former Tobacco user Tobacco use type: Pipe Smoked in Last 30 Days: No e-Cigarette/Vaping Use: Never Used Second Hand Smoke Exposure: No Use of substances other than those prescribed or required for medical reasons: No Substance Use Type: Heroin, Marijuana and Caffiene Advance Directives: No Advance Directives Information Provided: No service: No Sexual orientation: Don't Know Physical Exam ED Vital Signs: Vital Signs - 24 hr 06/12/24 14:53 06/12/24 20:26 06/12/24 21:11 Temperature 98.4 F 97.3 F Pulse Rate 66 72 Respiratory Rate 18 20 Blood Pressure 111/69 113/78 113/78 Pulse Oximetry 98 97 Oxygen Delivery Method Room Air Room Air 06/12/24 21:15 06/13/24 09:05 06/13/24 11:33 Temperature Pulse Rate 58 Respiratory Rate 14 Blood Pressure 113/78 118/68 118/65 Pulse Oximetry 99 Oxygen Delivery Method Room Air BMI result Body Mass Index 19.2 Const General: cooperative, no acute distress, alert and awake Nutritional Appearance: well nourished Orientation/consciousness: patient oriented x3 Limitations: no limitations HENMT Head: Yes normal to inspection and Yes atraumatic Ears: hearing grossly normal bilaterally and external ears normal General nose exam: Normal external nose present, no nasal discharge noted and no epistaxis Face and sinus: Yes normal facial exam, No abrasion and No laceration Mouth: Normal oral and palatal mucosa present, no drooling and no muffled voice Eyes General: appearance normal, both eyes and all related structures Periorbital: periorbital findings normal Eyelids: Yes eyelids normal Conjunctivae: conjunctivae normal Pupils: Equal, round and reactive pupils present EOM: EOMs intact bilaterally Neck Neck: Yes normal visual inspection, Yes full ROM and Yes no lymphadenopathy Chest Chest palpation & inspection: normal inspection of the chest Resp Effort & Inspection: normal respiratory effort and able to speak in complete sentences GI Inspection: Yes normal to inspection Neuro General: patient oriented x3, moves all extremities and CN's II-XI intact bilaterally Cranial nerves: Yes Equal, round and reactive pupils present Cognition (Neuro): normal cognition Extrem General: Yes normal to inspection, Yes full ROM and Yes capillary refill normal Psych Appearance: grossly normal Mental Status: mental status grossly normal Affect: Labile affect present Attitude: cooperative Thought process: Normal thought process present Thought content: Normal thought content present Course Course Course Narrative: Time: 08:43 Date: 06/13/24 Provider: Swapna Boles DO Patient in physician observation for psychiatric evaluation.? No acute events reported overnight. No current complaints. VS stable.? Patient is pending psych consult today. Will continue to monitor. Reevaluation(s) Reevaluation #1: Time: 12:18 Date: 06/13/24 Provider: Swapna Boles DO Physician observation ended at 1218pm. Patient has been cleared for discharge by the CARE team/psychiatry Skyler EARLY. Will follow up as an outpatient. Medications Administered Generic Name Dose Route Start Last Admin Trade Name Freq PRN Reason Stop Dose Admin Clonazepam 1 mg 06/12/24 21:00 06/13/24 09:30 Clonazepam 1 Mg Tablet PO 1 mg BID AGNES Administration Famotidine 40 mg 06/12/24 21:00 06/13/24 09:30 Famotidine 20 Mg Tablet PO 40 mg BID AGNES Administration Hydroxyzine HCl 50 mg 06/12/24 21:00 06/12/24 21:15 Hydroxyzine Hcl 50 Mg Tablet PO 50 mg BEDTIME AGNES Administration Methylphenidate HCl 15 mg 06/13/24 08:00 06/13/24 11:00 Methylphenidate Hcl 5 Mg Tablet PO 15 mg BID@0800,1200 AGNES Administration Nicotine Polacrilex 2 mg 06/12/24 17:34 06/13/24 09:29 Nicotine Polacrilex 2 Mg Gum BUCCAL 2 mg Q2H PRN Administration Nicotine Cravings Olanzapine 5 mg 06/12/24 21:00 06/12/24 21:15 Olanzapine 5 Mg Tablet PO 5 mg BEDTIME AGNES Administration Vitamin D 25 mcg 06/13/24 09:00 06/13/24 09:30 Cholecalciferol (Vitamin D3) 25 Mcg Tablet PO 25 mcg DAILY AGNES Administration Discontinued Medications Generic Name Dose Route Start Last Admin Trade Name Lopezq PRN Reason Stop Dose Admin Clonidine HCl 0.1 mg 06/12/24 21:00 06/13/24 11:33 Clonidine Hcl 0.1 Mg Tablet PO 0.1 mg TID PRN Administration Anxiety Protocol Diphenhydramine HCl 50 mg 06/12/24 21:49 06/12/24 22:06 Diphenhydramine Hcl 25 Mg Capsule PO 06/12/24 21:50 50 mg ONCE ONE Administration Diphenhydramine HCl 50 mg 06/13/24 09:32 06/13/24 10:08 Diphenhydramine Hcl 25 Mg Capsule PO 06/13/24 09:33 50 mg ONCE ONE Administration Spironolactone 100 mg 06/12/24 18:30 06/13/24 10:59 Spironolactone 25 Mg Tablet PO Not Given DAILY AGNES Protocol Medical Decision Making Medical Decision Making [facility] Narrative: Patient is a 29 year old assigned female at with a history of PTSD, borderline personality disorder, and paranoid schizophrenia presenting to the emergency department today with increased paranoia and SI. Patient's physical exam was as noted in the physical exam portion of this note and consistent with the patient's baseline. Patient's blood work was unremarkable. Patient's urine showed no acute process. Patient's EKG was unremarkable. CARE team met with the patient who states that the patient is not SI or HI and is at her baseline, appropriate to go back to the respite she arrived from. I explained my physical exam findings as well as all test results to the patient. I answered all questions asked by the patient. I stressed the importance of the patient taking her medication as directed (either prescribed or as the over the counter packaging recommends). I stressed the importance of the patient following up with her primary care provider. I stressed the importance of the patient returning to the emergency department immediately if her symptoms were to worsen or if she were to develop any dizziness, shortness of breath, difficulty breathing, chest pain, blurry vision, loss of vision, nausea, vomiting, abdominal pain, fever, chills, back pain, or any other complaints. Patient verbalized agreement and understanding with this treatment plan and discharge back to Respite. Differential Diagnosis Differential Diagnoses: The differential diagnosis associated with the presentation includes Acute psychosis Paranoia Admission/Observation Consideration of admission/observation: Escalation of care including admission/observation considered Patient would have been admitted to the hospital had her work up had any findings where hospital admission was appropriate and her clinical presentation warranted hospital admission. Consult Healthcare Provider Management of the patient was discussed with: Behavioral Health Provider (spoke with the CARE team as noted in the MDM Rationale portion of this note. ) Lab Data [facility] Lab Attestation statement: I reviewed the patient's lab results. My interpretation of these results are in the MDM Rationale portion of this note. 06/12/24 15:27 06/12/24 15:27 Labs: Lab Results 06/12/24 06/12/24 Range/Units 14:49 15:27 WBC 7.2 (4.8-10.8) X10*3/uL RBC 4.29 (4.20-5.50) X10*6/uL Hgb 12.7 (12.0-16.0) g/dl Hct 38.0 (37.0-47.0) % MCV 88.6 (80.0-98.0) fL MCH 29.6 (27.0-33.0) pg MCHC 33.4 (31.0-35.0) g/dl RDW 11.7 (11.0-16.0) % Plt Count 181 (160-400) X10*3/uL MPV 10.2 (9.4-12.3) fL Immature Gran % (Auto) 0.3 (0.0-0.4) % Neut % (Auto) 77.0 H (45-73) % Lymph % (Auto) 16.7 L (20-40) % Yell % (Auto) 5.0 (2-11) % Eos % (Auto) 0.3 (0-4) % Baso % (Auto) 0.7 (0-2) % Lymph # (Auto) 1.2 (1.2-4.9) X10*3/uL Yell # (Auto) 0.4 (0.1-1.2) X10*3/uL Eos # (Auto) 0.0 (0.0-0.4) X10*3/uL Baso # (Auto) 0.1 (0.0-0.2) X10*3/uL Abs Immat Gran (auto) 0.02 (0.00-0.03) X10*3/uL Absolute Neuts (auto) 5.5 (2.0-8.3) x10*3/uL Absolute Nucleated RBC 0.000 (0.0-0.012) X10*3/uL Nucleated RBC % (auto) 0.0 (0.0-0.2) /100WBC Sodium 140 (135-145) mmol/L Potassium 4.1 (3.3-5.1) mmol/L Chloride 107 (96-108) mmol/L Carbon Dioxide 26 (22-29) mmol/L Anion Gap 11 L (12-20) BUN 9 (9-16) mg/dL Creatinine 0.72 (0.5-1.4) mg/dL Estim Creat Clear Calc 85.9 Estimated GFR > 60 Random Glucose 135 H (60-115) mg/dL Calcium 9.3 D (8.4-10.2) mg/dL Total Bilirubin 0.6 (0.0-1.0) mg/dL AST 20 (5-31) U/L ALT 17 (0-31) U/L Alkaline Phosphatase 73 (39-117) U/L Total Protein 7.0 (6.5-8.0) g/dL Albumin 4.6 (3.5-5.0) g/dL Urine Color Yellow Urine Appearance Clear Urine pH 6.0 (5.0-9.0) Ur Specific [place] 1.025 (1.005-1.025) Urine Protein Trace (Neg-Trace) mg/dL Urine Glucose (UA) Negative (Negative) mg/dL Urine Ketones Trace (Negative) mg/dL Urine Blood Negative (Negative) Urine Nitrite Negative (Negative) Ur Leukocyte Esterase Trace H (Negative) Urine RBC 0-2 (0-2) /HPF Urine WBC 0-5 (0-5) /HPF Ur Squamous Epith Cells 3-5 (0-2) /HPF Urine Bacteria Trace (None Seen) Hyaline Casts 0-2 (0-2) /LPF Urine Test NEGATIVE (NEGATIVE) Salicylates < 5.0 L (15-30) mg/dL Urine Opiates Screen Not Detected (Not Detect) Ur Buprenorphine Scrn Not Detected (Not Detect) ng/mL Ur Oxycodone Screen Not Detected (Not Detect) ng/mL Urine Methadone Screen Not Detected (Not Detect) ng/mL Urine Fentanyl Screen Not Detected (Not Detect) Acetaminophen < 3 (<30) mcg/mL Ur Barbiturates Screen Not Detected (Not Detect) Ur Phencyclidine Scrn Not Detected (Not Detect) Ur Amphetamines Screen Not Detected (Not Detect) U Benzodiazepines Scrn POSITIVE H (Not Detect) Urine Cocaine Screen Not Detected (Not Detect) U Marijuana (THC) Screen POSITIVE H (Not Detect) Ethyl Alcohol < 10 mg/dL COVID-19 (ROBE) Negative (Negative) COVID-19 Clin Com See Note Independent Interpretation I performed an independent interpretation of an: EKG Interpretation: I independently interpreted this EKG and am in agreement with the below findings: Vent. Rate: 63 BPM Atrial Rate: 63 BPM P-R Int: 146 ms QRS Dur: 84 ms QT Int: 422 ms P-R-T Axes: 30 76 67 degrees QTcB Int: 431 ms Normal sinus rhythm Normal ECG When compared with ECG of 17-May-2021 18:15, Vent. rate has decreased by [address] no longer depressed in Anterior leads Non-specific change in ST segment in Lateral leads DD/ [id number] Independent Historian Clinical information obtained from an independent historian. History obtained from or confirmed by: EMS (EMS provided additional history and confirmed the history provided by the patient.) Critical Care Time Critical Care Time Critical Care Time: Yes Total Critical Care Time: 36 Attestation: I spent 36 minutes of Critical Care Time with this patient. This does not include time spent on separately reported billable procedures. Discharge Plan Discharge Clinical Impression: Paranoia Patient Disposition: Home, Self-Care Transfer Details: Back to respite. Additional Instructions: You were seen in our Emergency Department today for a concern regarding your mental / behavioral behavioral health. It is important after this visit today that you follow up with either your mental / behavioral health or primary care provider within 7 days (from today).? Return for any worsening symptoms or concerns such as thoughts of harming yourself or others. Please call 911 immediately if you feel your mental health is worsening.? National Suicide and Crisis Lifeline: Available 24 hours a day, 7 days a week, 365 days a year Dial 988 with any telephone to speak to someone immediately [facility] (Mental / Behavioral health therapist: [address] [place] [address] [facility] ([facility] at [facility]: [address] [place] [address] Open from 10am - 12pm (walk ins welcome) [facility] Crisis Services: [address] [place] [address] Walk in hours from 10am - 12pm Behavioral health Network: [address] [place] [address] [place] [phone] Saturday through Saturday 8am - 8pm Saturday and Saturday 9am - 5pm L Follow up with your primary care provider. Return to the emergency department immediately if your symptoms worsen or if you develop any numbness, tingling, dizziness, shortness of breath, difficulty breathing, chest pain, blurry vision, loss of vision, nausea, vomiting, abdominal pain, fever, chills, back pain, or any other complaints. Please see the information below about our Patient Portal. If you are not yet enrolled in the [facility] Patient Portal, you will receive an enrollment email invitation following your visit to any [facility] care setting. You may also self-enroll in the Patient Portal by visiting our website: [email or web address] The following information is required to access the Patient Portal: - Your [facility] Medical Record Number - Your personal home email address (must match what is in your electronic medical record, Registration staff can assist with this) - Name - Date of Capabilities of the Patient Portal: - Message some providers - View upcoming appointments - Access your health summary, medical history, and visit history - View current conditions and allergies - View procedure and lab results - View your medications, including guidelines, side effects, and precautions - Complete pre-appointment questionnaires requested by your provider - Ready summary reports of your office visits and procedures To access the Patient Portal Mobile Kb, follow these directions: - Search [employer] in the Kb Store or Google Play Store - Download the Kb - Search for [facility] - Enter your login/password Prescriptions: No Action calcium citrate 200 mg (950 mg) Tablet 200 mg PO DAILY cholecalciferol (vitamin D3) 25 mcg (1,000 unit) tablet 1 tab PO DAILY clonidine HCl 0.1 mg tablet See Rx Instructions .ROUTE .COMPLEX 30 Days Qty: 120 0RF Rx Instructions: take 1 tablet daily and take 3 tablets at bedtime spironolactone 100 mg tablet 100 mg PO BID 30 Days Qty: 60 0RF methylphenidate HCl 5 mg tablet See Rx Instructions .ROUTE .COMPLEX Rx Instructions: 15 mg orally twice daily at 0800am and 1200pm. clonazepam 1 mg tablet 1 mg PO BID diphenhydramine HCl [Banophen] 25 mg capsule 25 - 50 mg PO BID PRN (Reason: Anxiety) famotidine 40 mg tablet 40 mg PO BID methylphenidate HCl 5 mg tablet 10 mg PO DAILY Rx Instructions: daily at 1400h clonazepam 0.5 mg tablet 0.5 mg PO DAILY Rx Instructions: at 1400h olanzapine 5 mg tablet 5 mg PO BEDTIME hydroxyzine pamoate 25 mg capsule 50 mg PO BEDTIME hydroxyzine pamoate 25 mg capsule 25 mg PO BID PRN (Reason: Anxiety) Rx Instructions: AM AND NOON clonazepam [Klonopin] 0.5 mg tablet 0.5 mg PO QPM Referrals: Reny Martinez MD [Primary Care Provider] - Interventions: Russell-Suicide Risk Severity Scale Last Done: 06/13/24 01:05 Print Language: German
[2024-06-12 14:53] VITALS: BP 111/69; BP 121/84; PULSE 66; PULSE 81; RESP 18; TEMP 36.9; O2SAT 98; O2SAT 99; BMI 19.2
[2024-06-12 15:04] LABS: UPreg QC Valid YES; Urine Pregnancy NEGATIVE (NEGATIVE)
[2024-06-12 15:05] LABS: Appearance Urine Clear; Color Urine Yellow; Glucose Urine UA Negative (Negative); Leukocyte Esterase Urine Trace (Negative); Nitrite Urine Negative (Negative); Specific Gravity - Urine 1.025 (1.005-1.025); UMIC TRIGGER UA YES; Urine Blood Negative (Negative); Urine Ketones Trace mg/dL (Negative); Urine Protein Trace mg/dL (Neg-Trace)
[2024-06-12 15:11] LABS: Bacteria Urine Trace (None Seen); Hyaline Casts Urine 0-2 /LPF (0-2); RBC Urine 0-2 /HPF (0-2); WBC Urine 0-5 /HPF (0-5)
[2024-06-12 15:12] LABS: Amphetamine Screen Urine Not Detected (Not Detect); Barbiturates, Urine Not Detected (Not Detect); Benzodiazepines Screen Urine POSITIVE (Not Detect); Buprenorphine Scr Not Detected (Not Detect); Cannabinoid Screen Urine POSITIVE (Not Detect); Cocaine Screen Urine Not Detected (Not Detect); Fentanyl, urine Not Detected (Not Detect); Methadone Screen, Urine Not Detected (Not Detect); Opiate Screen Urine Not Detected (Not Detect); Oxycodone Screen Urine Not Detected (Not Detect); Phencyclidine Screen Urine Not Detected (Not Detect)
--- OUTSIDE RECORDS SUMMARY | 2024-06-12 15:34 | XMS_ITS | Encounter Summary ---
Author Organization [facility] Address [address] [place] [address] Care Team Providers Care Jailer/Training Officer Name Role Phone Reny Martinez MD Primary Care Provider [phone] Encounter Details Date Type Department Care Team (Latest Contact Info) Description 12/17/2023 7:56 AM EDT Hospital Encounter TH HISTORIC ENCOUNTERS EASTERN CONVERSION ONLY Tiffany Sheppard PA [address] [facility] [address] [place] [address] Irritable bowel syndrome with constipation Social History Tobacco Use Types Packs/Day Years Used Date Smoking Tobacco: Former Cigarettes 2 17.3 S tarted: 2008 Smokeless Tobacco: Never Alcohol Use Standard Drinks/Week [...] for your loved ones. For example, child adolescent psychiatrist or elderly care for an [...] as of this encounter Plan of Treatment Not on file documented as of this encounter Procedures Procedure Name Priority Date/Time Associated Diagnosis Comments CR UGI W AIR ROUTINE Routine 12/17/2023 11:54 AM EDT Irritable bowel syndrome with constipation documented in this encounter Results * CR UGI W AIR ROUTINE (12/17/2023 11:54 AM EDT) Anatomical Region Laterality Modality Radiographic Tonia ging 12/17/2023 8:04 AM EDT Narrative 12/17/2023 11:54 AM EDT [facility] Diagnostic Imaging Department [address] [place] [address] [id number] Patient: ??BENNY RIDDLE ?/Age/Sex: 1995 - Unit#: ??[id number] ? Location/Status: ??SPDIGEN/REG CLI ? Mnemonic/Ordering Site: ??[facility]/SPDI Ordering Physician: ??TIFFANY SHEPPARD CR UGI W Air Routine - 12/17/23 - 0848 Report Status:Signed HISTORY: Patient is a 28-year-old female with history of pelvic congestion, irritable bowel syndrome, constipation. COMPARISON: CT abdomen and pelvis July 28, 2022 FINDINGS: CAFETERIA CLERK radiographs: Industrial Maintenance Technician AP radiograph of the abdomen obtained. Bowel [...] Supervising physician: Desiree Alexandre MD Dictating Physician: ??DESIREE ALEXANDRE MD Electronically Signed by: ??DESIREE ALEXANDRE MD Dic Date/Time: ??12/17/23 0929 Sign date/Time: ??12/17/23 1154 Procedure Note Desiree Alexandre MD - 12/31/2023 [facility] Diagnostic Imaging Department [address] [place], [place] [id number] Patient: VENKATESHBENNY /Age/Sex: 1995 - - Unit#: [id number] [facility] Ordering Physician: TIFFANY SHEPPARD [place] [facility] [place] Routine - 12/17/23 - 0848 Report Status:Signed HISTORY: Patient is a 28-year-old female with history of pelviccongestion, irritable bowel syndrome, constipation. COMPARISON: CT abdomen and pelvis July 28, 2022 FINDINGS: CAFETERIA CLERK radiographs: Industrial Maintenance Technician AP radiograph of the abdomen obtained. Bowelgas [...] syndrome documented in this encounter Care Teams Jailer/Training Officer Relationship Specialty Start Date End Date Reny Martinez MD PCP - General Internal Medicine 12/04/21 01/08/24 documented as of this encounter
--- OUTSIDE RECORDS SUMMARY | 2024-06-12 15:34 | XMS_ITS | Encounter Summary ---
Author Organization [facility] Address [address] [place] [phone] Phone Care Team Providers Care Physical Director Name Role Phone Elizabeth Devries SALES ENABLEMENT MANAGER Primary Care Provider Un available Encounter Details Date Type Department Care Team (Late st Contact Info) Description 11/29/2009 Documentation [facility] [address] [place], [place] [id number] Family Medicine, Physician [address] [place] [address] Social History Tobacco Use Types Packs/Day Years Used Date Smoking Tobacco: Never Assessed Comments Unknown Sex and Gender Information Value Date Recorded Sex Assigned at Not on file Legal Sex Female 4:55 PM EDT Gender Identity Not on file Sexual Orientation Not on file documented as of this encounter Plan of Treatment Not on file documented as of this encounter Visit Diagnoses Not on filedocumented in this encounter Care Teams Physical Director Relationship Specialty Start Date End Date Elizabeth Devries NP PCP - General 10/12/16 documented as of this encounter
--- OUTSIDE RECORDS SUMMARY | 2024-06-12 15:34 | XMS_ITS | Clinical Summary ---
Author Organization [facility] Address [address] [place] [phone] Phone Care Team Providers Care Entry Level Manager Name Role Phone Elizabeth Devries NP Primary Care Provider Un available Immunizations Immunization Administration Dates Next Due DTP 10/22/1995, 5,1994, 995 DTaP 5 06/21/1999 HPV, Quadrivalent 10/08/2008,03/31/2007,01/28/20 07 Hep B, ped/adol 05/13/1995,1994,1994 Hib (PRP-T) 1995,1994,1994 IPV 06/21/1999, 5,1994, 995 Influenza Split 12/01/2012,01/16/2011,12/01/2009 Influenza, injectable, trivalent 12/05/2006 MMR 06/21/1999,10/22/1995 Meningococcal Conj (Menactra) MCV4P 01/27/2007 Tdap 12/05/2006 Family History Relation Name Status Comments Mother Mother: Migrain es Other No family histo ry of Thrombophilia, Family history of Asthma, No family history of CVA (Stroke) Social History Tobacco Use Types Packs/Day Years Used Date Smoking Tobacco: Light Smoker Comments:Light tobacco smoke r Comments Unknown Sex and Gender Information Value Date Recorded Sex Assigned at Not on file Legal Sex Female 4:55 PM EDT Gender Identity Not on file Sexual Orientation Not on file Last Filed Vital Signs Vital Sign Reading Time Taken Comments Blood Pressure 123/77 09/21/2014 12:00 AM EDT Pulse 79 09/21/2014 12:00 AM EDT Temperature 37.2 ??C (98.9 ??F) 06/25/2014 12:00 AM E DT Respiratory Rate - - Oxygen Saturation 100% 12/01/2009 12:00 AM EDT Inhaled Oxygen Concentration - - Weight 56.8 kg (125 lb 3.2 oz) 09/21/2014 12:00 AM EDT Height 158.8 cm (5' 2.5 ) 09/21/2014 12:00 AM ED T Body Mass Index 22.53 09/21/2014 12:00 AM EDT Plan of Treatment Health Maintenance Due Date Last Done Comments Varicella Vaccines (1 of 2 - 13+ 2-dose series) 05/03/2007 DTaP,Tdap,and Td Vaccines (7 - Td or Tdap) 12/05/2016 12/05/2006, 06/21/1999, 10/22/1995, Additional history exists Influenza Vaccines (#1) 2023 12/02/19 13, 01/16/2011, 12/01/2009, Additional history exists COVID-19 Vaccine ( season) 2023 HIB Vaccines Aged Out 1995, [birth year]02, 1995 No longer eligible based on patient's age to complete this topic Hepatitis B Vaccines Completed 05/13/1995, 1995, 1995 IPV Vaccines Completed 06/21/1999, 11/02, 1994, Additional history exists MMR Vaccines Completed 06/21/1999, 10/22/1995 Meningococcal Vaccine Aged Out 01/27/2007 No abraham barber eligible based on patient's age to complete this topic HPV Vaccines Completed 10/08/2008, 03/05, 01/27/2007 Hepatitis A Vaccines Aged Out No long er eligible based on patient's age to complete this topic Men B Vaccine Aged Out No longer elig ible based on patient's age to complete this topic Pneumococcal Vaccine Aged Out No long er eligible based on patient's age to complete this topic Procedures * Due to [place] [employer] law, this organization might not be sharing sensitive test results. Procedure Name Priority Date/Time Associated Diagnosis Comments CHLAMYDIA AND GONORRHEA, AMPLIFIED Routine 09/22/2014 3:46 PM EDT from Last 3 Months or Most Recently Relevant to Health Maintenance Results * Due to [place] [employer] law, this organization might not be sharing sensitive test results. * Chlamydia and Gonorrhoea, Amplified (09/22/2014 3:46 PM EDT) URINE GC AMP PROBE NEGATIVE [facility] Comment: No Neisseria Gonorrhoeae RNA detected in this patient's sample (REFERENCE RANGE/NORMAL VALUE: NOT DETECTED) NOTE: This test uses angle shearer-mediated amplification method to detect rRNA from C.Trachomatis and N.Gonorrhoeae. A negative result does not preclude infection. In the case of a negative urine result, testing of an endocervical(female) or urethral(male) specimen is recommended if there is high clinical suspicion of infection. The performance characteristics of this test have not been evaluated in children. The Aptima Combo2 assay is not intended for the evaluation of suspected sexual abuse or for other medico-legal indications. The ordering provider should assess if the patient had consensual sex without risk of sexual abuse. Consult the [facility] if needed. Contact phone number . Therapeutic failure or success cannot be determined with the Aptima Combo2 assay since nucleic acid may persist following appropriate antimicrobial therapy. The Centers for Disease Control and Prevention (CDC) recommends confirmatory retesting using culture or a different nucleic acid amplification test when positive results occur, if indicated. Testing performed or reported by [facility], a Service of [facility], [address] [place] [address] Td Hadley MD, PhD, Bacteriologist Pharmaceutical URINE CHLAMYDIA AMP PROBE NEGATIVE [facility] Comment: No Chlamydia Trachomatis RNA detected in this patient's sample (REFERENCE RANGE/NORMAL VALUE: NOT DETECTED) 09/22/2014 3:46 PM EDT Narrative [facility] - 09/22/2014 3:46 PM EDT URINE CHLAMYDIA GC AMP PROBE us Elizabeth Devries NP LAB MICROBIOLOGY - GENERA L ORDERABLES Final Result [facility] [address] [place] [address], from Last 3 Months or Most Recently Relevant to Health Maintenance Care Teams Entry Level Manager Relationship Specialty Start Date End Date Elizabeth Devries NP PCP - General 10/12/16
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
--- OUTSIDE RECORDS SUMMARY | 2024-06-12 15:34 | XMS_ITS | Encounter Summary ---
Author Organization [facility] Address [address] [place] [phone] Phone Care Team Providers Care Rug Renovator Name Role Phone Elizabeth Devries HEAD UP OPERATOR HELPER Primary Care Provider Un available Encounter Details Date Type Department Care Team (Late st Contact Info) Description 02/20/2010 Documentation [facility] [address] [place], [place] [phone] Family Medicine, Physician [address] [place] [address] Social History Tobacco Use Types Packs/Day Years [...] on filedocumented in this encounter Care Teams Rug Renovator Relationship Specialty Start Date End Date Elizabeth Devries NP PCP - General 10/12/16 documented as of this encounter
--- OUTSIDE RECORDS SUMMARY | 2024-06-12 15:34 | XMS_ITS | Encounter Summary ---
Author Organization [facility] Address [address] [place] [phone] Phone Care Team Providers Care Electromyographic Technician Name Role Phone Elizabeth Devries PHYSICAL PLANT EMPLOYEE Primary Care Provider Un available Encounter Details Date Type Department Care Team (Late st Contact Info) Description 05/14/2013 Documentation [facility] [address] [place], [place] [phone] Family Medicine, Physician [address] [place] [address] Social History Tobacco Use Types Packs/Day Years [...] on filedocumented in this encounter Care Teams Electromyographic Technician Relationship Specialty Start Date End Date Elizabeth Devries NP PCP - General 10/12/16 documented as of this encounter
--- OUTSIDE RECORDS SUMMARY | 2024-06-12 15:34 | XMS_ITS | Encounter Summary ---
Author Organization [facility] Address [address] [place] [phone] Phone Care Team Providers Care Behavioral Health Assistant Name Role Phone Elizabeth Dveries LEAD INSTRUCTOR/FLIGHT ATTENDANT Primary Care Provider Un available Encounter Details Date Type Department Care Team (Late st Contact Info) Description 02/09/2011 Documentation [facility] [address] [place], [place] [phone] Family Medicine, Physician [address] [place] [address] Social History Tobacco Use Types Packs/Day Years [...] on filedocumented in this encounter Care Teams Behavioral Health Assistant Relationship Specialty Start Date End Date Elizabeth Devries NP PCP - General 10/12/16 documented as of this encounter
--- OUTSIDE RECORDS SUMMARY | 2024-06-12 15:34 | XMS_ITS | Encounter Summary ---
Author Organization [facility] Address [address] [place] [phone] Phone Care Team Providers Care Miter Saw Operator Name Role Phone Elizabeth Devries SKULL CHOPPER Primary Care Provider Un available Encounter Details Date Type Department Care Team (Late st Contact Info) Description 10/18/2016 Conversion Encounter [facility] - [address] [address] Social History Tobacco Use Types Packs/Day Years [...] on filedocumented in this encounter Care Teams Miter Saw Operator Relationship Specialty Start Date End Date Elizabeth Devries NP PCP - General 10/12/16 documented as of this encounter
[2024-06-12 15:36] LABS: MANUAL DIFF FLAG NO
[2024-06-12 15:38] LABS: Basophils Absolute Auto 0.1 X10*3/uL (0.0-0.2); Basophils Percent Auto 0.7 % (0-2); Eosinophils Percent Auto 0.3 % (0-4); Hemoglobin 12.7 g/dl (12.0-16.0); Imm Gran Abs Auto 0.02 X10*3/uL (0.00-0.03); Imm Gran Pct Auto 0.3 % (0.0-0.4); Lymphocytes Absolute Auto 1.2 X10*3/uL (1.2-4.9); Lymphocytes Percent Auto 16.7 % (20-40); Mean Corpuscular HGB Conc 33.4 g/dl (31.0-35.0); Mean Corpuscular Hemoglobin 29.6 pg (27.0-33.0); Mean Corpuscular Volume 88.6 fL (80.0-98.0); Mean Platelet Volume 10.2 fL (9.4-12.3); Monocytes Absolute Auto 0.4 X10*3/uL (0.1-1.2); Neutrophils Absolute Auto 5.5 x10*3/uL (2.0-8.3); Platelet Count 181 X10*3/uL (160-400); Red Blood Count 4.29 X10*6/uL (4.20-5.50); Red Cell Distribution Width 11.7 % (11.0-16.0); White Blood Count 7.2 X10*3/uL (4.8-10.8)
[2024-06-12 15:50] LABS: COVID-19 Test Negative (Negative); IDNOW Serial# 55D5AD1C
[2024-06-12 15:51] LABS: Acetaminophen LAB < 3 mcg/mL (<30); Alanine Aminotransferase 17 U/L (0-31); Albumin Level 4.6 g/dL (3.5-5.0); Alkaline Phosphatase 73 U/L (39-117); Anion Gap 11 (12-20); Aspartate Amino Transferase 20 U/L (5-31); Bilirubin Total 0.6 mg/dL (0.0-1.0); Blood Urea Nitrogen 9 mg/dL (9-16); Calcium 9.3 mg/dL (8.4-10.2); Carbon Dioxide 26 mmol/L (22-29); Chloride 107 mmol/L (96-108); Creatinine Clr Calc Pharmacy 85.9; Estimated Glomerular Filt Rate > 60; Ethanol < 10 mg/dL; Glucose Random 135 mg/dL (60-115); Potassium 4.1 mmol/L (3.3-5.1); Salicylate < 5.0 mg/dL (15-30); Sodium 140 mmol/L (135-145)
--- NOTE | 2024-06-12 16:13 | MHC.CARE ---
Addendum entered by Vicenta Godinez LCSW 06/12/24 16:23: Contacted Abel ([phone]) who is Pt's [facility] Metallurgical Specialist who expresses that Pt has not been doing well for awhile however denied concern about SI/HI. He expresses the belief that inpatient level of care would not be particularly helpful as he does not think Pt would be open to medication evaluation. He expresses if Pt were to be found appropriate for discharge from the ED upon reassessment, Pt would need to discharge back to [facility] ([phone]) which I talked to them about and hopefully they are able to handle. Original Note: Received a call from [facility] crisis who reports Pt was assessed in the community and is an inpatient bedsearch. Pt has been at [facility] appro[facility] 3 months and has been presenting with delusions of her phone being hacked, difficulty functioning, not eating and escalating behaviors. [facility] can no longer manage Pt. Pt has been assessed by [facility] multiple times this week (Saturday06/08/24, 06/11/24). [facility] respite: [phone].
--- NOTE | 2024-06-12 16:14 | MHC.EDTECH ---
dental laboratory worker for collateral information- jessica- [phone] respite- [phone]
--- NOTE | 2024-06-12 17:44 | PC.NURSE ---
PT SEEN BY CARE TEAM. SHE HAS NONCONCERNING BEHAVIORS SINCE ARRIVAL TO THE POD, OCCASIONALLY TEARFUL AND EXPRESSING WANTING TO GO HOME. SHE HAS EATEN SOME SNACKS, ENGAGED IN CONVERSATION, AND NOT MADE ANY REQUESTS TO SEE OR REFERRED TO HER PHONE. MED REC COMPLETED, REQUESTING NICORETTE GUM. AWAITING DISPO.
--- NOTE | 2024-06-12 18:37 | PHA.MEDREC ---
Pharmacy Consult ? Medication Reconciliation Pharmacy has reviewed the medication reconciliation by nursing. There were many discrepencies, that were claified by nursing, who states will fix med rec. RN will correct that pt is only on sprinolactone 10mmg ONCE DAILY (not BID), pt is only taking clonidine 0.1mg TID prn anxiety (not 4 tabs a day). Pt has Clonazepam differently than claims, she takes: 1mg BID@0800,2000, and Clonazepam 0.5pm at 1400. Pt has Methylphenidate 15mg (10mg with 5mg tablet) at 0800 and 1200, and 10mg at 1400.
--- NOTE | 2024-06-12 19:03 | PC.NURSE ---
mother ondina [phone]
[2024-06-12] MEDS: Nicotine Polacrilex 2 MG GUM BUCCAL (20:16)
[2024-06-12 20:26] VITALS: BP 113/78; PULSE 72; RESP 20; TEMP 36.3; O2SAT 97
[2024-06-12 21:11] VITALS: BP 113/78
[2024-06-12] MEDS: Spironolactone 25 MG TABLET 100 MG PO (21:11)
[2024-06-12] MEDS: clonazePAM 1 MG TABLET PO (21:14)
[2024-06-12] MEDS: Famotidine 20 MG TABLET 40 MG PO (21:14)
[2024-06-12 21:15] VITALS: BP 113/78
[2024-06-12] MEDS: hydrOXYzine HCL 50 MG TABLET PO (21:15)
[2024-06-12] MEDS: cloNIDine HCL 0.1 MG TABLET PO (21:15)
[2024-06-12] MEDS: OLANZapine 5 MG TABLET PO (21:15)
[2024-06-12] MEDS: diphenhydrAMINE HCL 25 MG CAPSULE 50 MG PO (22:06)
--- NOTE | 2024-06-12 23:15 | MHC.EDTECH ---
Belongings moved to locker #4
--- NOTE | 2024-06-13 01:07 | PC.NURSE ---
patient appears to remain at rest presently, (late entry) patient upon arrival to unit was freq on and off the phone, had dc order in place and it had appeared that client would be dc'ed however, repsite apparently lacked capcatiy to provide scripts for clients medications for patient to dc home or to mothers house...eventually w more info from care team it became clear that some body required/requested psych consult prior to dc. patient was reluctantly amenable to staying over and completing in am patient appears safe and reality based. patient appears in no distress, was patient with medication delivery as acuity of unit was moderate.
[2024-06-13 09:05] VITALS: BP 118/68; PULSE 58; RESP 14; O2SAT 99
[2024-06-13] MEDS: Nicotine Polacrilex 2 MG GUM BUCCAL (09:29)
[2024-06-13] MEDS: Cholecalciferol (Vitamin D3) 25 MCG TABLET PO (09:30)
[2024-06-13] MEDS: clonazePAM 1 MG TABLET PO (09:30)
[2024-06-13] MEDS: Famotidine 20 MG TABLET 40 MG PO (09:30)
[2024-06-13] MEDS: diphenhydrAMINE HCL 25 MG CAPSULE 50 MG PO (10:08)
[2024-06-13] MEDS: Methylphenidate HCl 5 MG TABLET 15 MG PO (11:00)
[2024-06-13 11:33] VITALS: BP 118/65
[2024-06-13] MEDS: cloNIDine HCL 0.1 MG TABLET PO (11:33)
--- NOTE | 2024-06-13 12:00 | PC.NURSE ---
Pt's meds verified and orders changed to reflect; pt anxious, pleasant; phyciatrist at bedside to meet with pt
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
[2024-06-13 12:56] VITALS: BP 118/65; PULSE 69; RESP 16; TEMP 36.5
--- NOTE | 2024-06-13 13:03 | MHC.CARE ---
Seen by psychiatry, cleared for discharge. Will be going home with her mother and then back to her apartment tomorrow.
== END 2024-06-13 12:57 | disposition home or self-care (01) ==
PROVIDERS: Physician Assistant Medical; Emergency Provider Emergency Medicine Emergency Medical Services; PCP Internal Medicine
DX: F43.10 Post-traumatic stress disorder, unspecified (principal); F20.0 Paranoid schizophrenia; F60.3 Borderline personality disorder; Z11.52 Encounter for screening for COVID-19; Z79.899 Other long term (current) drug therapy; Z51.81 Encounter for therapeutic drug level monitoring
CPT/HCPCS: 80053; 80143; 80179; 80307; 81001; 81025; 85025; 87635; 93005; 99285; S9485

== ENCOUNTER → 2024-06-12 14:43 | Outpatient (BNV) | payer OTHER, SELFPAY | PROVIDERS: Emergency Provider Emergency Medicine Emergency Medical Services; PCP Internal Medicine; Visit Provider Internal Medicine Cardiovascular Disease | DX: Z13.6 Encounter for screening for cardiovascular disorders (principal) | CPT/HCPCS: 93010 ==

== ENCOUNTER → 2024-06-12 15:31 | Outpatient (BNV) | payer OTHER, SELFPAY | PROVIDERS: Emergency Provider Emergency Medicine Emergency Medical Services; PCP Internal Medicine; Visit Provider Psychiatry & Neurology Psychiatry | DX: F60.3 Borderline personality disorder (principal); F20.0 Paranoid schizophrenia; F43.11 Post-traumatic stress disorder, acute | CPT/HCPCS: 99284 ==

== ENCOUNTER 2024-09-11 14:41 | Emergency (ER) | payer OTHER, SELFPAY ==
--- OUTSIDE RECORDS SUMMARY | 2023-12-17 07:56 | XMS_ITS | Encounter Summary ---
Author Organization [facility] Address [address] [place] [address] Care Team Providers Care Medication Coordinator Name Role Phone Reny Martinez MD Primary Care Provider [phone] Encounter Details Date Type Department Care Team (Latest Contact Info) Description 12/17/2023 7:56 AM EDT Hospital Encounter TH HISTORIC ENCOUNTERS EASTERN CONVERSION ONLY Tiffany Sheppard PA [address] [facility] 200 [place] [address] Irritable bowel syndrome with constipation Social History [...] care for your loved ones. For example, maternal child nurse or elderly care for an older adult? [...] 1:00 PM EDT Office Visit Gastroenterology - [place] [address] [place] [phone] Tiffany Sheppard PA [address] [place] [address] [place] [address] documented as of this encounter Procedures Procedure [...] [facility] Department [address] [place] [address] Patient: BENNY RIDDLE /Age/Sex: 1995 - F Unit#: [id number] Location/Status: SPDIGEN/REG CLI Mnemonic/[facility]ing [facility] Ordering Physician: TIFFANY SHEPPARD CR UGI W Air Routine - 12/17/23 - 0848 Report Status:Signed HISTORY: Patient is a 28-year-old female with history of pelvic congestion, irritable bowel syndrome, constipation. COMPARISON: CT abdomen and pelvis July 28, 2022 FINDINGS: FUSION JUNCTURE GRINDER radiographs: Manager Development AP radiograph of the abdomen obtained. Bowel [...] [facility] Department [address] [place] [address] Patient: RIDDLEBENNY D.O.B./Age/Sex: 1995 - Unit#: [id number] Location/Status: SPDIGEN/REG CLI Mnemonic/[facility] Ordering Physician: TIFFANY SHEPPARD CR UGI W Air Routine - 12/17/23 - 48 Report Status:Signed HISTORY: Patient is a 28-year-old female with history of pelviccongestion, irritable bowel syndrome, constipation. COMPARISON: CT abdomen and pelvis July 28, 2022 FINDINGS: FUSION JUNCTURE GRINDER radiographs: Manager Development AP radiograph of the abdomen obtained. Bowelgas [...] syndrome documented in this encounter Care Teams Medication Coordinator Relationship Specialty Start Date End Date Reny Martinez MD PCP - General Internal Medicine 12/04/21 01/08/24 documented as of this encounter
--- NOTE | 2024-09-11 | ECG_ITS ---
Test Reason : CHEST PAIN Blood Pressure : */* mmHG Vent. Rate : 66 BPM Atrial Rate : 66 BPM P-R Int : 154 ms QRS Dur : 82 ms QT Int : 398 ms P-R-T Axes : 58 73 64 degrees QTcB Int : 417 ms Normal sinus rhythm Normal ECG When compared with ECG of 12-Jun-2024 15:36, No significant change was found Referred By: Generic ED Physician Electronically Signed By: Sean Dobbins
--- NOTE | ~2024-09-11 | CT_ITS ---
CLINICAL HISTORY: question distal radial fx on xray CT right wrist without contrast Comparison: CR - XR WRIST RT MIN 3V - 09/11/24 16:07 EDT Findings: There is a nondisplaced incomplete fracture of the distal radial metaphysis at the dorsal aspect. No intra-articular extension. The osseous structures are otherwise intact. No dislocation. No osseous lesion. The joint spaces are preserved without osteophytosis. There is no joint effusion. There is no fluid collection. The muscles are normal in attenuation and bulk. Unremarkable limited evaluation of the vasculature and tendons. Soft tissue swelling. Impression: Nondisplaced incomplete fracture of the distal radial metaphysis at the dorsal aspect. This document has been electronically signed by: Annalisa Brannon MD on 09/11/2024 17:17:47
--- NOTE | ~2024-09-11 | XR_ITS ---
CLINICAL HISTORY: trauma Exam: Right wrist four views Comparison: None Findings: Vague linear lucency of the distal radius metaphysis, parallel to the long axis of the radius, seen on the oblique and scaphoid view, mild soft tissue swelling volar aspect, no emphysema or radiopaque foreign body. Other osseous structures are normal. No dislocation. Impression: Probable nondisplaced fracture of the distal radius. This document has been electronically signed by: Kaitlynn Pedro MD on 09/11/2024 16:27:46
--- NOTE | ~2024-09-11 | XR_ITS ---
CLINICAL HISTORY: trauma Chest radiograph AP view Comparison: None Findings: Cardiomediastinal silhouette normal. No consolidations. No pleural effusion. No pneumothorax. No acute fracture. Soft tissue is unremarkable. Impression: No acute cardiopulmonary finding. This document has been electronically signed by: Kaitlynn Pedro MD on 09/11/2024 16:28:25
[2024-09-11 14:51] VITALS: BP 148/80; PULSE 110; PULSE 90; RESP 18; TEMP 37.3; O2SAT 97; BMI 20.1
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
--- OUTSIDE RECORDS SUMMARY | 2024-09-11 15:13 | XMS_ITS | Encounter Summary ---
Author Organization [facility] Address [address] [place] [id number] Phone Care Team Providers Care Contracts Officer Name Role Phone Elizabeth Devries PATIENT SERVICES SPECIALIST Primary Care Provider Un available Encounter Details Date Type Department Care Team (Late st Contact Info) Description 02/09/2011 Documentation [facility] [address] [place], [place] [id number] Family Medicine, Physician [address] [place] [address] Social History Tobacco Use Types Packs/Day Years [...] on filedocumented in this encounter Care Teams Contracts Officer Relationship Specialty Start Date End Date Elizabeth Devries NP PCP - General 10/12/16 documented as of this encounter
[2024-09-11 16:00] VITALS: BP 120/70; PULSE 60; RESP 16; TEMP 36.6; O2SAT 98
[2024-09-11 16:01] LABS: UPreg QC Valid YES
[2024-09-11] MEDS: oxyCODONE HCl Immed Release 5 MG TABLET PO (17:05)
[2024-09-11 18:11] VITALS: BP 120/70; PULSE 60; RESP 16; TEMP 36.6; O2SAT 98
== END 2024-09-11 18:23 | disposition home or self-care (01) ==
PROVIDERS: Emergency Provider Emergency Medicine
DX: S52.591A Other fractures of lower end of right radius, initial encounter for closed fracture (principal); V43.52XA Car driver injured in collision with other type car in traffic accident, initial encounter; Y93.89 Activity, other specified; Y92.414 Local residential or business street as the place of occurrence of the external cause; Y99.8 Other external cause status
CPT/HCPCS: 29125; 71045; 73110; 73200; 81025; 93005; 96372; 99284; J1885

== ENCOUNTER → 2024-09-11 15:16 | Outpatient (BNV) | payer OTHER, SELFPAY | PROVIDERS: Emergency Provider Emergency Medicine; Visit Provider Radiology Diagnostic Radiology | DX: S52.124A Nondisplaced fracture of head of right radius, initial encounter for closed fracture (principal); R07.89 Other chest pain; M25.531 Pain in right wrist | CPT/HCPCS: 71045; 73110; 73200 ==

== ENCOUNTER → 2024-09-11 15:37 | Outpatient (BNV) | payer OTHER, SELFPAY | PROVIDERS: Emergency Provider Emergency Medicine; Visit Provider Internal Medicine Cardiovascular Disease | DX: R07.9 Chest pain, unspecified (principal) | CPT/HCPCS: 93010 ==

== ENCOUNTER 2024-09-12 11:35 | Emergency (ER) | payer OTHER, SELFPAY ==
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
[2024-09-12 12:01] VITALS: BP 108/63; PULSE 77; RESP 20; TEMP 37; O2SAT 99; BMI 23.4
[2024-09-12 12:16] VITALS: BP 108/63; PULSE 77; RESP 20; TEMP 37; O2SAT 99
== END 2024-09-12 12:22 | disposition home or self-care (01) ==
LOC: HO.ED 12:18
PROVIDERS: Emergency Provider Emergency Medicine; PCP Internal Medicine
DX: S52.591A Other fractures of lower end of right radius, initial encounter for closed fracture (principal); V49.9XXA Car occupant (driver) (passenger) injured in unspecified traffic accident, initial encounter; Y93.9 Activity, unspecified; Y92.9 Unspecified place or not applicable; Y99.9 Unspecified external cause status
CPT/HCPCS: 29125; 99283; 99284

== ENCOUNTER 2024-09-17 09:47 | Outpatient (REF) | payer OTHER, SELFPAY ==
--- OUTSIDE RECORDS SUMMARY | 2023-12-17 07:56 | XMS_ITS | Encounter Summary ---
Author Organization [facility] Address [address] [place] [address] Care Team Providers Care Automotive Tire Worker Name Role Phone Reny Martinez MD Primary Care Provider [phone] Encounter Details Date Type Department Care Team (Latest Contact Info) Description 12/17/2023 7:56 AM EDT Hospital Encounter TH HISTORIC ENCOUNTERS EASTERN CONVERSION ONLY Tiffany Sheppard PA [address] [facility] [address] [place] [address] Irritable bowel syndrome with constipation Social History Tobacco Use Types Packs/Day Years Used Date Smoking Tobacco: Former Cigarettes 2 17.5 S tarted: 2007 Smokeless Tobacco: Never Alcohol [...] care for your loved ones. For example, children's ministry director or elderly care for an older adult? [...] Care Team (Late st Contact Info) Description 09/30/2024 1:00 PM EDT Office Visit Gastroenterology - [place] [address] [place] [phone] Tfifany Sheppard PA [address] [place] [address] [place] [address] documented as of this encounter Procedures Procedure Name Priority Date/Time Associated Diagnosis Comments CR UGI W AIR ROUTINE Routine 12/17/2023 11:54 AM EDT Irritable bowel syndrome with constipation documented in this encounter Results * CR UGI W AIR ROUTINE (12/17/2023 11:54 AM EDT) Anatomical Region Laterality Modality Radiographic Tonia ging 12/17/2023 8:04 AM EDT Narrative 12/17/2023 11:[address] [facility] Diagnostic Imaging Department [address] [place] [address] Patient: BENNY RIDDLE /Age/Sex: 1995 - F Unit#: [id number] Location/Status: SPDIGEN/REG CLI Mnemonic/[facility]ing [facility]: [facility] Ordering Physician: TIFFANY SHEPPARD CR UGI W Air Routine - 12/17/23 - 0848 Report Status:Signed HISTORY: Patient is a 28-year-old female with history of pelvic congestion, irritable bowel syndrome, constipation. COMPARISON: CT abdomen and pelvis July 28, 2022 FINDINGS: RASPBERRY CHECKER radiographs: Psychologist AP radiograph of the abdomen obtained. Bowel [...] MD Dic Date/Time: 12/17/23928 Sign date/Time: 12/17/23 115 Procedure Note Desiree Alexandre MD - 12/31/2023 [facility] Diagnostic Imaging Department [address] [place] [address] Patient: RIDDLEBENNY D.O.B./Age/Sex: 1995 - Unit#: [id number] Location/Status: SPDIGEN/REG CLI Mnemonic[facility] Ordering Physician: TIFFANY SHEPPARD CR UGI W Air Routine - 12/17/23 - 48 Report Status:Signed HISTORY: Patient is a 28-year-old female with history of pelviccongestion, irritable bowel syndrome, constipation. COMPARISON: CT abdomen and pelvis July 28, 2022 FINDINGS: RASPBERRY CHECKER radiographs: Psychologist AP radiograph of the abdomen obtained. Bowelgas [...] Date/Time: 12/17/23 0929 Sign date/Time: 12/17/23 1154 Tiffany ROSE IMG XR PROCEDURES Final Resul t documented in this encounter Visit Diagnoses Diagnosis Irritable bowel syndrome with constipation Irritable bowel syndrome documented in this encounter Care Teams Automotive Tire Worker Relationship Specialty Start Date End Date Reny Martinez MD PCP - General Internal Medicine 12/04/21 01/08/24 documented as of this encounter
--- NOTE | ~2024-09-17 | XR_ITS ---
EXAMINATION: XR WRIST, RIGHT CLINICAL INFORMATION: M25.531 - Pain in right wrist COMPARISON: CT right wrist 09/11/2024. Right wrist radiographs 09/11/2024. TECHNIQUE: PA, lateral, and oblique views of the right wrist. FINDINGS: There is redemonstration of a subtle dorsal distal radial metaphyseal fracture, nondisplaced. No significant interval change in the appearance of the fracture, which is only well seen on the lateral projection. No additional fracture, dislocation, or suspicious bone lesion. There is normal alignment. There is no soft tissue abnormality. XR/XR wrist RT min 3V IMPRESSION: Similar subtle dorsal distal radial metaphyseal fracture, nondisplaced. This is only well seen on the lateral projection. Electronically signed by: Andreas Akins MD 09/17/2024 11:15 AM EDT
--- OUTSIDE RECORDS SUMMARY | 2024-09-17 10:09 | XMS_ITS | Encounter Summary ---
Author Organization [facility] Address [address] [place] [phone] Phone Care Team Providers Care Physician Assistant Name Role Phone Elizabeth Devries SALES STORE CHECKER Primary Care Provider Un available Encounter Details Date Type Department Care Team (Late st Contact Info) Description 02/09/2011 Documentation [facility] [address] [place], [place] [phone] Family Medicine, Physician [address] [place] [address] Social History Tobacco Use Types Packs/Day Years [...] on filedocumented in this encounter Care Teams Physician Assistant Relationship Specialty Start Date End Date Elizabeth Devries NP PCP - General 10/12/16 documented as of this encounter
== END 2024-09-17 09:48 | disposition home or self-care (01) ==
LOC: HO.HOSX 09:47
DX: S52.501D Unspecified fracture of the lower end of right radius, subsequent encounter for closed fracture with routine healing (principal); M25.531 Pain in right wrist; M79.641 Pain in right hand; R20.0 Anesthesia of skin; M79.644 Pain in right finger(s); M79.89 Other specified soft tissue disorders; V98.8XXD Other specified transport accidents, subsequent encounter
CPT/HCPCS: 25600; 73110

== ENCOUNTER 2024-09-17 10:22 | Outpatient (AMB) | payer OTHER, SELFPAY ==
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
[2024-09-17 10:43] VITALS: BMI 23.4
== END 2024-09-17 11:20 | disposition home or self-care (01) ==
LOC: HO.HOS 10:23
PROVIDERS: PCP Internal Medicine
DX: S52.501A Unspecified fracture of the lower end of right radius, initial encounter for closed fracture (principal); M79.641 Pain in right hand
CPT/HCPCS: 25600; 99203

== ENCOUNTER → 2024-09-17 10:24 | Outpatient (BNV) | payer OTHER, SELFPAY | PROVIDERS: Visit Provider Radiology Diagnostic Radiology | DX: S52.324A Nondisplaced transverse fracture of shaft of right radius, initial encounter for closed fracture (principal) | CPT/HCPCS: 73110 ==

== ENCOUNTER 2024-09-23 13:04 | Outpatient (AMB) | payer OTHER, SELFPAY ==
--- OUTSIDE RECORDS SUMMARY | 2023-12-17 07:56 | XMS_ITS | Encounter Summary ---
Author Organization [facility] Address [address] [place] [address] Care Team Providers Care Camera Assembler Name Role Phone Reny Martinez MD Primary Care Provider [phone] Encounter Details Date Type Department Care Team (Latest Contact Info) Description 12/17/2023 7:56 AM EDT Hospital Encounter TH HISTORIC ENCOUNTERS EASTERN CONVERSION ONLY Tiffany Sheppard PA [address] [facility] [address] [place] [address] Irritable bowel syndrome with constipation Social History [...] care for your loved ones. For example, exceptional children teacher assistant or elderly care for an older [...] 1:00 PM EDT Office Visit Gastroenterology - [place] [address] [place] [id number] Tiffany Sheppard PA [address] [place] [address] [place] [address] documented as of this encounter Procedures Procedure [...] [facility] Diagnostic Imaging Department [address] [place] [address] Patient: BENNY RIDDLE /Age/Sex: 1995 - F Unit#: [id number] Location/Status: SPDIGEN/REG CLI Mnemonic/Ordering Site: [facility] Ordering Physician: TIFFANY SHEPPARD CR UGI W Air Routine - 12/17/23 - 0848 Report Status:Signed HISTORY: Patient is a 28-year-old female with history of pelvic congestion, irritable bowel syndrome, constipation. COMPARISON: CT abdomen and pelvis July 28, 2022 FINDINGS: MEDICAL OFFICE ASST radiographs: Social Insurance Analyst AP radiograph of the abdomen obtained. Bowel [...] [facility] Diagnostic Imaging Department [address] [place] [address] Patient: RIDDLEBENNY D.O.B./Age/Sex: 1995 - Unit#: [id number] Location/Status: SPDIGEN/REG CLI Mnemonic/[facility] Ordering Physician: TIFFANY SHEPPARD CR UGI W Air Routine - 12/17/23 - 48 Report Status:Signed HISTORY: Patient is a 28-year-old female with history of pelviccongestion, irritable bowel syndrome, constipation. COMPARISON: CT abdomen and pelvis July 28, 2022 FINDINGS: MEDICAL OFFICE ASST radiographs: Social Insurance Analyst AP radiograph of the abdomen obtained. Bowelgas [...] syndrome documented in this encounter Care Teams Camera Assembler Relationship Specialty Start Date End Date Reny Martinez MD PCP - General Internal Medicine 12/04/21 01/08/24 documented as of this encounter
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
[2024-09-23 13:18] VITALS: BMI 23.4
--- OUTSIDE RECORDS SUMMARY | 2024-09-23 13:32 | XMS_ITS | Encounter Summary ---
Author Organization [facility] Address [address] [place] [phone] Phone Care Team Providers Care Medical Intern Name Role Phone Elizabeth Devries LABOR RELATIONS MANAGER Primary Care Provider Un available Encounter Details Date Type Department Care Team (Late st Contact Info) Description 02/09/2011 Documentation [facility] [address] [place], [place] [phone] Family Medicine, Physician [address] [place] [address] Social History Tobacco Use Types Packs/Day Years [...] on filedocumented in this encounter Care Teams Medical Intern Relationship Specialty Start Date End Date Elizabeth Devries NP PCP - General 10/12/16 documented as of this encounter
== END 2024-09-23 14:43 | disposition home or self-care (01) ==
LOC: HO.HOS 13:05
DX: S52.501A Unspecified fracture of the lower end of right radius, initial encounter for closed fracture (principal); M79.643 Pain in unspecified hand
CPT/HCPCS: 29125; 99024

== ENCOUNTER → 2024-09-23 13:04 | Outpatient (BNVA) | payer OTHER, SELFPAY | DX: S52.501A Unspecified fracture of the lower end of right radius, initial encounter for closed fracture (principal); M79.643 Pain in unspecified hand | CPT/HCPCS: 29125 ==

== ENCOUNTER 2024-10-02 07:49 | Outpatient (REF) | payer OTHER, SELFPAY ==
--- OUTSIDE RECORDS SUMMARY | 2023-12-17 07:56 | XMS_ITS | Encounter Summary ---
Author Organization [facility] Address [address] [place] [address] Care Team Providers Care Vegetable Tester Name Role Phone Reny Martinez MD Primary Care Provider [phone] Encounter Details Date Type Department Care Team (Latest Contact Info) Description 12/17/2023 7:56 AM EDT Hospital Encounter TH HISTORIC ENCOUNTERS EASTERN CONVERSION ONLY Tiffany Sheppard PA [address] [facility] 200 [place] [address] Irritable bowel syndrome with constipation Social History [...] care for your loved ones. For example, home child care provider or elderly care for an older adult? [...] Info) Description 12/02/2024 8:15 AM EDT Appointment [facility] Nuclear Medicine [address] [place] [phone] 01/07/2025 1:00 PM EST Office Visit Gastroenterology - [place] 175 [facility] 175 [facility] [address] [place] [phone] Tiffany Sheppard PA 175 [facility] 200 [place] [address] (work) documented as of this encounter Procedures Procedure Name Priority Date/Time Associated Diagnosis Comments CR UGI W AIR ROUTINE Routine 12/17/2023 11:54 AM EDT Irritable bowel syndrome with constipation documented in this encounter Results * CR UGI W AIR ROUTINE (12/17/2023 11:54 AM EDT) Anatomical Region Laterality Modality Radiographic Tonia ging 12/17/2023 8:04 AM EDT Narrative 12/17/2023 11:[address] [facility] Diagnostic Imaging Department [address] [place] [address] Patient: BENNY RIDDLE /Age/Sex: 1995 - - Unit#: [id number] Location/Status: [facility]/REG CLI Mnemonic/Ordering Site: [facility] Ordering Physician: TIFFANY SHEPPARD CR UGI W Air Routine - 12/17/23 - 0848 Report Status:Signed HISTORY: Patient is a 28-year-old female with history of pelvic congestion, irritable bowel syndrome, constipation. COMPARISON: CT abdomen and pelvis July 28, 2022 FINDINGS: LETTERER radiographs: Assistant Professor Of Archaeology AP radiograph of the abdomen obtained. Bowel [...] Procedure Note Desiree Alexandre MD - 12/31/2023 [facility] Diagnostic Imaging Department [address] [place] [address] Patient: BENNY RIDDLE /Age/Sex: 1995 - Unit#: [id number] [facility] Mn[facility]/Ordering Site: [facility] Ordering Physician: TIFFANY SHEPPARD CR UGI W Air Routine - 12/17/23 - 48 Report Status:Signed HISTORY: Patient is a 28-year-old female with history of pelviccongestion, irritable bowel syndrome, constipation. COMPARISON: CT abdomen and pelvis July 28, 2022 FINDINGS: LETTERER radiographs: Assistant Professor Of Archaeology AP radiograph of the abdomen obtained. Bowelgas [...] syndrome documented in this encounter Care Teams Vegetable Tester Relationship Specialty Start Date End Date Reny Martinez MD PCP - General Internal Medicine 12/04/21 01/08/24 documented as of this encounter
--- NOTE | ~2024-10-02 | XR_ITS ---
EXAMINATION: XR WRIST, RIGHT CLINICAL INFORMATION: M79.641 - Pain in right hand COMPARISON: 01/18/2025, 09/11/2024. CT right wrist 09/11/2024. TECHNIQUE: PA, lateral, and oblique views of the right wrist. FINDINGS: There is redemonstration of a subtle dorsal distal radial metaphyseal fracture, nondisplaced. No significant interval change in the appearance of the fracture, which is only well seen on the lateral projection. No additional fracture, dislocation, or suspicious bone lesion. There is normal alignment. There is no soft tissue abnormality. XR/XR wrist RT w scaphoid IMPRESSION: Similar subtle dorsal distal radial metaphyseal fracture, nondisplaced. Electronically signed by: Andreas Akins MD 10/02/2024 09:46 AM EDT
--- OUTSIDE RECORDS SUMMARY | 2024-10-02 07:51 | XMS_ITS | Encounter Summary ---
Author Organization [facility] Address [address] [place] [address] Phone Care Team Providers Care Customer Service Engineer Name Role Phone Elizabeth Devries COLOR ROOM ATTENDANT Primary Care Provider Un available Encounter Details Date Type Department Care Team (Late st Contact Info) Description 02/09/2011 Documentation [facility] [address] [place], [place] [phone] Family Medicine, Physician [address] [place] [address] Social History Tobacco Use Types Packs/Day Years [...] on filedocumented in this encounter Care Teams Customer Service Engineer Relationship Specialty Start Date End Date Elizabeth Devries NP PCP - General 10/12/16 documented as of this encounter
== END 2024-10-02 07:50 | disposition home or self-care (01) ==
LOC: HO.HOSX 07:49
DX: S52.501D Unspecified fracture of the lower end of right radius, subsequent encounter for closed fracture with routine healing (principal); M79.641 Pain in right hand; V89.2XXD Person injured in unspecified motor-vehicle accident, traffic, subsequent encounter
CPT/HCPCS: 29085; 73110

== ENCOUNTER 2024-10-02 08:48 | Outpatient (AMB) | payer OTHER, SELFPAY ==
[2024-10-02 08:52] VITALS: BMI 23.4
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
== END 2024-10-02 09:51 | disposition home or self-care (01) ==
LOC: HO.HOS 08:49
PROVIDERS: PCP Internal Medicine
DX: S52.501A Unspecified fracture of the lower end of right radius, initial encounter for closed fracture (principal); M79.643 Pain in unspecified hand
CPT/HCPCS: 29085; 99213

== ENCOUNTER → 2024-10-02 08:53 | Outpatient (BNV) | payer OTHER, SELFPAY | PROVIDERS: Visit Provider Radiology Diagnostic Radiology | DX: M79.641 Pain in right hand (principal); S52.502A Unspecified fracture of the lower end of left radius, initial encounter for closed fracture | CPT/HCPCS: 73110 ==

== ENCOUNTER 2024-10-09 17:19 | Emergency (ER) | payer OTHER, SELFPAY ==
--- OUTSIDE RECORDS SUMMARY | 2023-12-17 07:56 | XMS_ITS | Encounter Summary ---
Author Organization [facility] Address [address] [place] [address] Care Team Providers Care Engrosser Name Role Phone Reny Martinez MD Primary Care Provider [phone] Encounter Details Date Type Department Care Team (Latest Contact Info) Description 12/17/2023 7:56 AM EDT Hospital Encounter TH HISTORIC ENCOUNTERS EASTERN CONVERSION ONLY Tiffany Sheppard PA [address] [facility] 200 [place] [address] Irritable bowel syndrome with constipation Social History [...] Info) Description 12/02/2024 8:15 AM EDT Appointment [facility] Nuclear Medicine [address] [place] [phone] 01/07/2025 1:00 PM EST Office Visit Gastroenterology - [place] 175 [facility] 175 [facility] [address] [place] [phone] Tiffany Sheppard PA 175 [facility] 200 [place] [address] (work) documented as of this encounter Procedures Procedure Name Priority Date/Time Associated Diagnosis Comments CR UGI W AIR ROUTINE Routine 12/17/2023 11:54 AM EDT Irritable bowel syndrome with constipation documented in this encounter Results * CR UGI W AIR ROUTINE (12/17/2023 11:54 AM EDT) Anatomical Region Laterality Modality Radiographic Tonia ging 12/17/2023 8:04 AM EDT Narrative 12/17/2023 11:54 AM EDT [facility] Diagnostic Imaging Department [address] [place] [address] Patient: BENNY RIDDLE /Age/Sex: 1995 - - Unit#: [id number] Location/Status: [facility]/REG CLI Mnemonic/Ordering Site: [facility] Ordering Physician: TIFFANY SHEPPARD CR UGI W Air Routine - 12/17/23 - 0848 Report Status:Signed HISTORY: Patient is a 28-year-old female with history of pelvic congestion, irritable bowel syndrome, constipation. COMPARISON: CT abdomen and pelvis July 28, 2022 FINDINGS: SCENE PAINTER radiographs: Director Supplier Quality AP radiograph of the abdomen obtained. Bowel [...] MD Dic Date/Time: 12/17/23928 Sign date/Time: 12/17/23 1154 Procedure Note Desiree Alexandre MD - 12/31/2023 [facility] Diagnostic Imaging Department [address] [place] [address] Patient: BENNY RIDDLE /Age/Sex: 1995 - Unit#: [id number] [facility]Ordering Site: [facility] Ordering Physician: TIFFANY SHEPPARD CR UGI W Air Routine - 12/17/23 - 1348 Report Status:Signed HISTORY: Patient is a 28-year-old female with history of pelviccongestion, irritable bowel syndrome, constipation. COMPARISON: CT abdomen and pelvis July 28, 2022 FINDINGS: SCENE PAINTER radiographs: Director Supplier Quality AP radiograph of the abdomen obtained. Bowelgas [...] Date/Time: 12/17/23 0929 Sign date/Time: 12/17/23 1154 us Tiffany ROSE IMG XR PROCEDURES Final Resul t documented in this encounter Visit Diagnoses Diagnosis Irritable bowel syndrome with constipation Irritable bowel syndrome documented in this encounter Care Teams Engrosser Relationship Specialty Start Date End Date Reny Martinez MD PCP - General Internal Medicine 12/04/21 01/08/24 documented as of this encounter
--- NOTE | ~2024-10-09 | XR_ITS ---
CLINICAL HISTORY: pain, injury 3 view left foot Comparison: None provided Findings: Bones intact. No dislocations. No significant loss of joint space, osteophytes, or erosions. No ankle effusion. No radiopaque foreign body. IMPRESSION: 1. No acute findings. This document has been electronically signed by: Renee Sales MD on 10/09/2024 18:51:45
--- NOTE | ~2024-10-09 | XR_ITS ---
CLINICAL HISTORY: pain, injury 3 view left ankle Comparison: None provided Findings: No acute fractures or dislocations. No significant loss of joint space, osteophytes, or erosions. No ankle effusion. No radiopaque foreign body. IMPRESSION: 1. No acute findings. This document has been electronically signed by: Renee Sales MD on 10/09/2024 18:52:27
[2024-10-09 17:42] VITALS: BP 122/62; PULSE 94; RESP 18; TEMP 36.4; O2SAT 94; BMI 21.2
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
[2024-10-10 02:17] VITALS: BP 122/62; PULSE 94; RESP 18; TEMP 36.4; O2SAT 94
== END 2024-10-09 20:20 | disposition home or self-care (01) ==
PROVIDERS: Emergency Provider Emergency Medicine; PCP Internal Medicine
DX: M79.672 Pain in left foot (principal); M25.572 Pain in left ankle and joints of left foot
CPT/HCPCS: 73610; 73630; 99282; 99283

== ENCOUNTER → 2024-10-09 17:45 | Outpatient (BNV) | payer OTHER, SELFPAY | PROVIDERS: Visit Provider Specialist | DX: M25.572 Pain in left ankle and joints of left foot (principal) | CPT/HCPCS: 73610; 73630 ==

== ENCOUNTER 2024-10-16 07:35 | Outpatient (REF) | payer OTHER, SELFPAY ==
--- OUTSIDE RECORDS SUMMARY | 2023-12-17 07:56 | XMS_ITS | Encounter Summary ---
Author Organization [facility] Address [address] [place] [address] Care Team Providers Care Marine Pipe Welder Name Role Phone Reny Martinez MD Primary Care Provider [phone] Encounter Details Date Type Department Care Team (Latest Contact Info) Description 12/17/2023 7:56 AM EDT Hospital Encounter TH HISTORIC ENCOUNTERS EASTERN CONVERSION ONLY Tiffany Sheppard PA [address] [place] [address] [place] [address] Irritable bowel syndrome with constipation Social History Tobacco Use Types Packs/Day Years Used Date Smoking Tobacco: Former Cigarettes 2 17.6 S tarted: 2007 Smokeless Tobacco: Never Alcohol [...] care for your loved ones. For example, childcare attendant or elderly care for an older adult? [...] Info) Description 12/02/2024 8:15 AM EDT Appointment [facility] Nuclear Medicine [address] [place] [phone] 01/07/2025 1:00 PM EST Office Visit Gastroenterology - [place] 175 [facility] 175 [facility] [address] [place] [phone] Tiffany Sheppard PA 175 [facility] [address] [place] [address] 02/10/2025 2:30 PM EST Office Visit Adult Medicine [facility] [address] [place] [phone] Maura Gupta PA [address] [place], [place] documented as of this encounter Procedures Procedure Name Priority Date/Time Associated Diagnosis Comments CR UGI W AIR ROUTINE Routine 12/17/2023 11:54 AM EDT Irritable bowel syndrome with constipation documented in this encounter Results * CR UGI W AIR ROUTINE (12/17/2023 11:54 AM EDT) Anatomical Region Laterality Modality Radiographic Tonia ging 12/17/2023 8:04 AM EDT Narrative 12/17/2023 11:54 AM EDT [facility] Diagnostic Imaging Department [address] [place] [address] Patient: ARELIS RIDDLE D.O.B./Age/Sex: 1995 - F Unit#: [id number] Location/Status: [facility]/REG CLI Mnemonic[facility] Ordering Physician: TIFFANY SHEPPARD CR UGI W Air Routine - 12/17/2348 Report Status:Signed HISTORY: Patient is a 28-year-old female with history of pelvic congestion, irritable bowel syndrome, constipation. COMPARISON: CT abdomen and pelvis July 28, 2022 FINDINGS: STEAM TENDER radiographs: Umbrella Mender AP radiograph of the abdomen obtained. Bowel [...] Dic Date/Time: 12/17/23 0929 Sign date/Time: 12/17/23 1154 Procedure Note Desiree Alexandre MD - 12/31/2023 [facility] Diagnostic Imaging Department [address] [place], [place] [phone] Patient: ARELIS RIDDLE./Age/Sex: 1995 - - Unit#: [id number] Location/Status: [facility]/REG CLI Mnemonic/[facility] Ordering Physician: TIFFANY SHEPPARD CR UGI W Air Routine - 12/17/23 - 48 Report Status:Signed HISTORY: Patient is a 28-year-old female with history of pelviccongestion, irritable bowel syndrome, constipation. COMPARISON: CT abdomen and pelvis July 28, 2022 FINDINGS: STEAM TENDER radiographs: Umbrella Mender AP radiograph of the abdomen obtained. Bowelgas [...] by: DESIREE ALEXANDRE MD Dic Date/Time: 12/17/23 5492 Sign date/Time: 12/17/23 6511 us Tiffany ROSE IMG XR PROCEDURES Final Resul t documented in this encounter Visit Diagnoses Diagnosis Irritable bowel syndrome with constipation Irritable bowel syndrome documented in this encounter Care Teams Marine Pipe Welder Relationship Specialty Start Date End Date Reny Martinez MD PCP - General Internal Medicine 12/04/21 01/08/24 documented as of this encounter
--- NOTE | ~2024-10-16 | XR_ITS ---
EXAMINATION: XR WRIST 3 OR MORE VIEWS RIGHT HISTORY: M25.531 - Pain in right wrist COMPARISON: Comparison is made with the prior examination dated 10/02/2024. FINDINGS: Three views of the right wrist are submitted. Osseous mineralization is normal. Again seen is a nondisplaced fracture of the distal radial metaphysis. The fracture line remains faintly visible. The joint spaces are preserved. The soft tissues are unremarkable. XR/XR wrist RT min 3V IMPRESSION: Nondisplaced fracture of the distal radial metaphysis without change. Electronically signed by: Jake Tolentino MD 10/16/2024 11:03 AM EDT
--- OUTSIDE RECORDS SUMMARY | 2024-10-16 07:37 | XMS_ITS | Encounter Summary ---
Author Organization [facility] Address [address] [place] [phone] Phone Care Team Providers Care Fish Frog Or Oyster Farmer Name Role Phone Elizabeth Devries BLOCKMAN Primary Care Provider Un available Encounter Details Date Type Department Care Team (Late st Contact Info) Description 02/09/2011 Documentation [facility] [address] [place], [place] [phone] Family Medicine, Physician [address] [place] [address] Social History Tobacco Use Types Packs/Day Years [...] on filedocumented in this encounter Care Teams Fish Frog Or Oyster Farmer Relationship Specialty Start Date End Date Elizabeth Devries NP PCP - General 10/12/16 documented as of this encounter
== END 2024-10-16 07:36 | disposition home or self-care (01) ==
LOC: HO.HOSX 07:35
DX: S52.501D Unspecified fracture of the lower end of right radius, subsequent encounter for closed fracture with routine healing (principal); M25.531 Pain in right wrist; X58.XXXD Exposure to other specified factors, subsequent encounter
CPT/HCPCS: 29075; 73110

== ENCOUNTER 2024-10-16 09:50 | Outpatient (AMB) | payer OTHER, SELFPAY ==
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
[2024-10-16 09:55] VITALS: BMI 21.0
== END 2024-10-16 10:53 | disposition home or self-care (01) ==
LOC: HO.HOS 09:51
DX: S52.501A Unspecified fracture of the lower end of right radius, initial encounter for closed fracture (principal); M79.641 Pain in right hand
CPT/HCPCS: 29075; 99024

== ENCOUNTER → 2024-10-16 09:52 | Outpatient (BNV) | payer OTHER, SELFPAY | PROVIDERS: Visit Provider Radiology Diagnostic Radiology | DX: S52.571G Other intraarticular fracture of lower end of right radius, subsequent encounter for closed fracture with delayed healing (principal) | CPT/HCPCS: 73110 ==

== ENCOUNTER 2024-10-30 13:40 | Outpatient (AMB) | payer OTHER, SELFPAY ==
--- OUTSIDE RECORDS SUMMARY | 2023-12-17 07:56 | XMS_ITS | Encounter Summary ---
Author Organization [facility] Address [address] [place] [address] Care Team Providers Care Program Analyst Name Role Phone Reny Martinez MD Primary Care Provider [phone] Encounter Details Date Type Department Care Team (Latest Contact Info) Description 12/17/2023 7:56 AM EDT Hospital Encounter TH HISTORIC ENCOUNTERS EASTERN CONVERSION ONLY Tiffany Sheppard PA [address] [place] [address] Irritable bowel syndrome with constipation Social History Tobacco Use Types Packs/Day Years Used Date Smoking Tobacco: Former Cigarettes 2 17.7 S tarted: 2007 Smokeless Tobacco: Never Alcohol [...] for your loved ones. For example, child care aide or elderly care for an older adult? [...] Date Recorded What is your living situation? 1 03/28/2023 Comments No Sex and Gender Information Value Date Recorded Sex Assigned at Female 01/14/2024 9:34 AM EST Legal Sex Female 8:11 PM EDT Gender Identity Female 01/14/2024 9:34 AM EST Sexual Orientation Bisexual 01/14/2024 9: 34 AM EST documented as of this encounter Plan of Treatment Upcoming Encounters Date Type Department Care Team (Late st Contact Info) Description 12/02/2024 8:[address] [facility] Nuclear Medicine [address] [place] [address] 01/07/2025 1:00 PM EST Office Visit Gastroenterology - [place] 175 [facility] [address] [facility] [address] [place] [address] Tiffany Sheppard PA [address] [place] [phone] 02/10/2025 2:30 PM EST Office Visit Adult Medicine [facility] [address] [place] [phone] Maura Gupta PA [address] [place] [address] documented as of this encounter Procedures Procedure Name Priority Date/Time Associated Diagnosis Comments CR UGI W AIR ROUTINE Routine 12/17/2023 11:54 AM EDT Irritable bowel syndrome with constipation documented in this encounter Results * CR UGI W AIR ROUTINE (12/17/2023 11:54 AM EDT) Anatomical Region Laterality Modality Radiographic Tonia ging 12/17/2023 8:04 AM EDT Narrative 12/17/2023 11:54 AM EDT [facility] Diagnostic Imaging Department [address] [place] [address] Patient: ARELIS RIDDLE /Age/Sex: 1995 - 28 - F Unit#: [id number] Location/Status: [facility]/REG CLI Mnemonic/Ordering Site: [facility] Ordering Physician: TIFFANY SHEPPARD CR UGI W Air Routine - 12/17/23 - 0848 Report Status:Signed HISTORY: Patient is a 28-year-old female with history of pelvic congestion, irritable bowel syndrome, constipation. COMPARISON: CT abdomen and pelvis July 28, 2022 FINDINGS: PROSPECTING DRILLER HELPER radiographs: Instrument Operator AP radiograph of the abdomen obtained. Bowel [...] by: DESIREE ALEXANDRE MD Dic Date/Time: 12/17/23 Sign date/Time: 12/17/23 1155 Procedure Note Desiree Alexandre MD - 12/31/2023 [facility] Diagnostic Imaging Department [address] [place] [address] Patient: ARELIS RIDDLE /Age/Sex: 1995 - 28 - F Unit#: [id number] Location/Status: [facility]/REG CLI Mnemonic/Ordering Site: [facility] Ordering Physician: TIFFANY SHEPPARD CR UGI W Air Routine - 12/17/23 - 5248 Report Status:Signed HISTORY: Patient is a 28-year-old female with history of pelviccongestion, irritable bowel syndrome, constipation. COMPARISON: CT abdomen and pelvis July 28, 2022 FINDINGS: PROSPECTING DRILLER HELPER radiographs: Instrument Operator AP radiograph of the abdomen obtained. Bowelgas [...] Dic Date/Time: 12/17/23 0929 Sign date/Time: 12/17/23 1150 Tiffany ROSE IMG XR PROCEDURES Final Resul t documented in this encounter Visit Diagnoses Diagnosis Irritable bowel syndrome with constipation Irritable bowel syndrome documented in this encounter Care Teams Program Analyst Relationship Specialty Start Date End Date Reny Martinez MD PCP - General Internal Medicine 12/04/21 01/08/24 documented as of this encounter
--- OUTSIDE RECORDS SUMMARY | 2024-10-30 13:43 | XMS_ITS | Encounter Summary ---
Author Organization [facility] Address [address] [place] [address] Phone Care Team Providers Care Print Line Inspector Name Role Phone Elizabeth Devries JAVASCRIPT WEB DEVELOPER Primary Care Provider Un available Encounter Details Date Type Department Care Team (Late st Contact Info) Description 02/09/2011 Documentation [facility] [address] [place], [place] [phone] Family Medicine, Physician [address] [place] [address] Social History Tobacco Use Types Packs/Day Years [...] on filedocumented in this encounter Care Teams Print Line Inspector Relationship Specialty Start Date End Date Elizabeth Devries NP PCP - General 10/12/16 documented as of this encounter
--- OUTSIDE RECORDS SUMMARY | 2024-10-30 13:43 | XMS_ITS | Encounter Summary ---
Author Organization [facility] Address [address] [place] [address] Phone Care Team Providers Care Housefellow Name Role Phone Elizabeth Devries GARDENING INSTRUCTOR Primary Care Provider Un available Encounter Details Date Type Department Care Team (Late st Contact Info) Description 02/09/2011 Documentation [facility] [address] [place], [place] [phone] Family Medicine, Physician [address] [place] [address] Social History Tobacco Use Types Packs/Day Years [...] on filedocumented in this encounter Care Teams Housefellow Relationship Specialty Start Date End Date Elizabeth Devries NP PCP - General 10/12/16 documented as of this encounter
--- OUTSIDE RECORDS SUMMARY | 2024-10-30 13:43 | XMS_ITS | Encounter Summary ---
Author Organization [facility] Address [address] [place] [address] Phone Care Team Providers Care Sql Consultant Name Role Phone Elizabeth Devries SOFTWARE QUALITY ASSURANCE ANALYST Primary Care Provider Un available Encounter Details Date Type Department Care Team (Late st Contact Info) Description 02/20/2010 Documentation [facility] [address] [place], [place] [phone] Family Medicine, Physician [address] [place] [address] Social History Tobacco Use Types Packs/Day Years [...] on filedocumented in this encounter Care Teams Sql Consultant Relationship Specialty Start Date End Date Elizabeth Devries NP PCP - General 10/12/16 documented as of this encounter
--- OUTSIDE RECORDS SUMMARY | 2024-10-30 13:43 | XMS_ITS | Encounter Summary ---
Author Organization [facility] Address [address] [place] [address] Phone Care Team Providers Care Quality Cloth Tester Name Role Phone Elizabeth Devries STEWARDING SUPERVISOR Primary Care Provider Un available Encounter Details Date Type Department Care Team (Late st Contact Info) Description 05/14/2013 Documentation [facility] [address] [place], [place] [phone] Family Medicine, Physician [address] [place] [address] Social History Tobacco Use Types Packs/Day Years [...] on filedocumented in this encounter Care Teams Quality Cloth Tester Relationship Specialty Start Date End Date Elizabeth Devries NP PCP - General 10/12/16 documented as of this encounter
--- OUTSIDE RECORDS SUMMARY | 2024-10-30 13:43 | XMS_ITS | Encounter Summary ---
Author Organization [facility] Address [address] [place] [address] Phone Care Team Providers Care Financial Systems Analyst Name Role Phone Elizabeth Devries DESKTOP PUBLISHING OPERATOR Primary Care Provider Un available Encounter Details Date Type Department Care Team (Late st Contact Info) Description 11/29/2009 Documentation [facility] [address] [place], [place] [phone] Family Medicine, Physician [address] [place] [address] Social History Tobacco Use Types Packs/Day Years [...] on filedocumented in this encounter Care Teams Financial Systems Analyst Relationship Specialty Start Date End Date Elizabeth Devries NP PCP - General 10/12/16 documented as of this encounter
--- OUTSIDE RECORDS SUMMARY | 2024-10-30 13:44 | XMS_ITS | Clinical Summary ---
Author Organization [facility] Address [address] [place] [address] Phone Care Team Providers Care Air Motor Repairer Name Role Phone Elizabeth Devries NP Primary [...] 79 09/21/2014 12:00 AM EDT Temperature 37.2 C (98.9 F) 06/25/2014 12:00 AM EDT Respiratory Rate - - Oxygen Saturation 100% [...] 12/05/2016 12/05/2006, 06/21/1999, 10/22/1995, Additional history exists COVID-19 Vaccine (2023- season) 2023 Influenza Vaccines (#1) 2024 12/02/19 13, 01/16/2011, 12/01/2009, Additional history exists HIB Vaccines Aged Out 1994, 09/02, 1994 [...] complete this topic Procedures * Due to [place] [employer] law, this organization might not be sharing sensitive test results. Procedure Name Priority Date/Time Associated Diagnosis Comments CHLAMYDIA AND GONORRHEA, AMPLIFIED Routine 09/22/2014 3:46 PM EDT from Last 3 Months or Most Recently Relevant to Health Maintenance Results * Due to [place] state law, this organization might not be sharing sensitive test results. * Chlamydia and Gonorrhoea, Amplified (09/22/2014 3:46 PM EDT) URINE GC AMP PROBE NEGATIVE [facility] Comment: No Neisseria Gonorrhoeae RNA detected in this patient's sample (REFERENCE RANGE/NORMAL VALUE: NOT DETECTED) NOTE: This test uses machine stitcher-mediated amplification method to detect rRNA from C.Trachomatis [...] without risk of sexual abuse. Consult the [facility] if needed. Contact phone number . Therapeutic failure or success cannot be determined with the Aptima Combo2 assay since nucleic acid may persist following appropriate antimicrobial therapy. The Centers for Disease Control and Prevention (CDC) recommends confirmatory retesting using culture or a different nucleic acid amplification test when positive results occur, if indicated. Testing performed or reported by [facility], a Service of [facility], [address] [place] [address] Td Hadley MD, PhD, Passenger Service Agent URINE CHLAMYDIA AMP PROBE NEGATIVE [facility] Comment: No Chlamydia Trachomatis RNA detected in this patient's sample (REFERENCE RANGE/NORMAL VALUE: NOT DETECTED) 09/22/2014 3:46 PM EDT Narrative [facility] - 09/22/2014 3:46 PM EDT URINE CHLAMYDIA GC AMP PROBE us Elizabeth Devries NP LAB MICROBIOLOGY - GENERA L ORDERABLES Final Result [facility] [address] [place] [address], from Last 3 Months or Most Recently Relevant to Health Maintenance Care Teams Air Motor Repairer Relationship Specialty Start Date End Date Elizabeth Devries NP PCP - General 10/12/16
--- OUTSIDE RECORDS SUMMARY | 2024-10-30 13:44 | XMS_ITS | Encounter Summary ---
Author Organization [facility] Address [address] [place] [phone] Phone Care Team Providers Care Medical Office Receptionist Assistant Name Role Phone Elizabeth Devries DIAMOND SIZER Primary Care Provider Un available Encounter Details Date Type Department Care Team (Late st Contact Info) Description 10/18/2016 Conversion Encounter [facility] - [address] [address] Social History Tobacco Use Types Packs/Day Years [...] filedocumented in this encounter Care Teams Medical Office Receptionist Assistant Relationship Specialty Start Date End Date Elizabeth Devries NP PCP - General 10/12/16 documented as of this encounter
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
[2024-10-30 13:53] VITALS: BMI 21.0
== END 2024-10-30 15:16 | disposition home or self-care (01) ==
LOC: HO.HOS 13:41
PROVIDERS: PCP Internal Medicine
DX: M79.641 Pain in right hand (principal); S52.501A Unspecified fracture of the lower end of right radius, initial encounter for closed fracture
CPT/HCPCS: 29085; 99024

== ENCOUNTER → 2024-10-30 13:54 | Outpatient (BNV) | payer OTHER, SELFPAY | PROVIDERS: Visit Provider Radiology Diagnostic Radiology | DX: M25.531 Pain in right wrist (principal) | CPT/HCPCS: 73100; 73110 ==

== ENCOUNTER 2024-10-30 14:17 | Outpatient (REF) | payer OTHER, SELFPAY ==
--- NOTE | ~2024-10-30 | XR_ITS ---
EXAMINATION: XR WRIST, RIGHT CLINICAL INFORMATION: M25.531 - Pain in right wrist COMPARISON: None available. TECHNIQUE: PA view scaphoid of the right wrist. FINDINGS: No fracture line identified. There is no joint diastases. No degenerative changes are present. XR/XR wrist RT 2V IMPRESSION: Unremarkable scaphoid. If there is snuffbox tenderness or concern for an occult fracture, follow-up in 7-10 days. Electronically signed by: Abel Carlson MD 10/30/2024 04:06 PM EDT RP
--- NOTE | ~2024-10-30 | XR_ITS ---
EXAMINATION: XR WRIST, RIGHT CLINICAL INFORMATION: M25.531 - Pain in right wrist COMPARISON: None available. TECHNIQUE: PA, lateral, and oblique views of the right wrist. FINDINGS: There is 2 mm ulnar plus variance. There is no joint diastases. There are no degenerative changes. No fractures are identified. XR/XR wrist RT min 3V IMPRESSION: Unremarkable right wrist Electronically signed by: Abel Carlson MD 10/30/2024 02:09 PM EDT
== END 2024-10-30 14:18 | disposition home or self-care (01) ==
LOC: HO.HOSX 14:17
DX: S52.501D Unspecified fracture of the lower end of right radius, subsequent encounter for closed fracture with routine healing (principal); M79.641 Pain in right hand; V89.2XXD Person injured in unspecified motor-vehicle accident, traffic, subsequent encounter
CPT/HCPCS: 29085; 73100; 73110

== ENCOUNTER 2024-11-16 09:13 | Outpatient (AMB) | payer OTHER, SELFPAY ==
--- OUTSIDE RECORDS SUMMARY | 2023-12-17 07:56 | XMS_ITS | Encounter Summary ---
Author Organization [facility] Address [address] [place] [address] Care Team Providers Care Galley Cook Name Role Phone Reny Martinez MD Primary Care Provider [phone] Encounter Details Date Type Department Care Team (Latest Contact Info) Description 12/17/2023 7:56 AM EDT Hospital Encounter TH HISTORIC ENCOUNTERS EASTERN CONVERSION ONLY Tiffany Sheppard PA [address] [place] [address] Irritable bowel syndrome with constipation Social History [...] your loved ones. For example, child care assistant or elderly care for an older adult? [...] Info) Description 12/02/2024 8:15 AM EDT Appointment [facility] Nuclear Medicine [address] [place] [phone] 01/07/2025 1:00 PM EST Office Visit Gastroenterology - [place] 175 [facility] 175 [facility] [address] [place] [phone] Tiffany Sheppard PA 175 [facility] 200 [place] [address] 02/10/2025 2:30 PM EST Office Visit Adult Medicine [facility] [address] [place] [phone] Maura Gupta PA [address] [place] [address] documented as of this encounter Procedures Procedure Name Priority Date/Time Associated Diagnosis Comments CR UGI W AIR ROUTINE Routine 12/17/2023 11:54 AM EDT Irritable bowel syndrome with constipation documented in this encounter Results * CR UGI W AIR ROUTINE (12/17/2023 11:54 AM EDT) Anatomical Region Laterality Modality Radiographic Tonia ging 12/17/2023 8:04 AM EDT Narrative 12/17/2023 11:54 AM EDT [facility] Diagnostic Imaging Department [address] [place] [address] Patient: ARELIS RIDDLE D.O.B./Age/Sex: 1995 - F Unit#: [id number] Location/Status: SPDIGEN/REG CLI Mnemonic/[facility] Ordering Physician: TIFFANY SHEPPARD CR UGI W Air Routine - 12/17/2348 Report Status:Signed HISTORY: Patient is a 28-year-old female with history of pelvic congestion, irritable bowel syndrome, constipation. COMPARISON: CT abdomen and pelvis July 28, 2022 FINDINGS: CASE MANAGEMENT ASSISTANT radiographs: Agent Spa Desk AP radiograph of the abdomen obtained. Bowel [...] Procedure Note Desiree Alexandre MD - 12/31/2023 [facility] Diagnostic Imaging Department [address] [place], [place] [id number] Patient: ARELIS RIDDLE./Age/Sex: 1995 - - Unit#: [id number] Location/Status: SPDIGEN/REG CLI Mnemonic/Ordering Site: [facility] Ordering Physician: TIFFANY SHEPPARD CR UGI W Air Routine - 12/17/23 - 48 Report Status:Signed HISTORY: Patient is a 28-year-old female with history of pelviccongestion, irritable bowel syndrome, constipation. COMPARISON: CT abdomen and pelvis July 28, 2022 FINDINGS: CASE MANAGEMENT ASSISTANT radiographs: Agent Spa Desk AP radiograph of the abdomen obtained. Bowelgas [...] by: DESIREE ALEXANDRE MD Dic Date/Time: 12/17/23 0102 Sign date/Time: 12/17/23 9332 us Tiffany ROSE IMG XR PROCEDURES Final Resul t documented in this encounter Visit Diagnoses Diagnosis Irritable bowel syndrome with constipation Irritable bowel syndrome documented in this encounter Care Teams Galley Cook Relationship Specialty Start Date End Date Reny Martinez MD PCP - General Internal Medicine 12/04/21 01/08/24 documented as of this encounter
[2024-11-16 09:14] VITALS: BMI 21.0
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
--- OUTSIDE RECORDS SUMMARY | 2024-11-16 10:51 | XMS_ITS | Encounter Summary ---
Author Organization [facility] Address [address] [place] [address] Phone Care Team Providers Care Supervisor Liquefaction Name Role Phone Elizabeth Devries P[employer] OPERATOR Primary Care Provider Un available Encounter Details Date Type Department Care Team (Late st Contact Info) Description 02/09/2011 Documentation [facility] [address] [place], [place] [id number] Family Medicine, Physician [address] [place] [address] Social History Tobacco Use Types Packs/Day Years [...] on filedocumented in this encounter Care Teams Supervisor Liquefaction Relationship Specialty Start Date End Date Elizabeth Devries NP PCP - General 10/12/16 documented as of this encounter
--- OUTSIDE RECORDS SUMMARY | 2024-11-16 10:51 | XMS_ITS | Encounter Summary ---
Author Organization [facility] Address [address] [place] [address] Phone Care Team Providers Care Recovery Operator Helper Name Role Phone Elizabeth Devries THREAD MACHINE OPERATOR Primary Care Provider Un available Encounter Details Date Type Department Care Team (Late st Contact Info) Description 05/14/2013 Documentation [facility] [address] [place], [place] [id number] Family Medicine, Physician [address] [place] [address] Social History Tobacco Use Types Packs/Day Years [...] on filedocumented in this encounter Care Teams Recovery Operator Helper Relationship Specialty Start Date End Date Elizabeth Devries NP PCP - General 10/12/16 documented as of this encounter
--- OUTSIDE RECORDS SUMMARY | 2024-11-16 10:51 | XMS_ITS | Encounter Summary ---
Author Organization [facility] Address [address] [place] [address] Phone Care Team Providers Care Icer Hand Name Role Phone Elizabeth Devries ENTERTAINMENT USHER Primary Care Provider Un available Encounter Details Date Type Department Care Team (Late st Contact Info) Description 02/09/2011 Documentation [facility] [address] [place], [place] [phone] Family Medicine, Physician [address] [place] [address] Social History Tobacco Use Types Packs/Day Years [...] on filedocumented in this encounter Care Teams Icer Hand Relationship Specialty Start Date End Date Elizabeth Devries NP PCP - General 10/12/16 documented as of this encounter
--- OUTSIDE RECORDS SUMMARY | 2024-11-16 10:52 | XMS_ITS | Clinical Summary ---
Author Organization [facility] Address [address] [place] [address] Phone Care Team Providers Care Salesperson Floor Coverings Name Role Phone Elizabeth Devries NP Primary [...] 10/22/1995, Additional history exists Influenza Vaccines (#1) 2024 12/02/19 13, 01/16/2011, 12/01/2009, Additional history exists COVID-19 Vaccine ( season) 2024 HIB Vaccines Aged Out 1994, 09/02, 1994 [...] complete this topic Procedures * Due to [place] SCH[place] law, this organization might not be sharing sensitive test results. Procedure Name Priority Date/Time Associated Diagnosis Comments CHLAMYDIA AND GONORRHEA, AMPLIFIED Routine 09/22/2014 3:46 PM EDT from Last 3 Months or Most Recently Relevant to Health Maintenance Results * Due to [place] state law, this organization might not be sharing sensitive test results. * Chlamydia and Gonorrhoea, Amplified (09/22/2014 3:46 PM EDT) URINE GC AMP PROBE NEGATIVE [facility] Comment: No Neisseria Gonorrhoeae RNA detected in this patient's sample (REFERENCE RANGE/NORMAL VALUE: NOT DETECTED) NOTE: This test uses coke inspector-mediated amplification method to detect rRNA from C.Trachomatis [...] without risk of sexual abuse. Consult the [facility] if needed. Contact phone number . Therapeutic failure or success cannot be determined with the Aptima Combo2 assay since nucleic acid may persist following appropriate antimicrobial therapy. The Centers for Disease Control and Prevention (CDC) recommends confirmatory retesting using culture or a different nucleic acid amplification test when positive results occur, if indicated. Testing performed or reported by [facility], a Service of [facility], [address] [place] [address] Td Hadley MD, PhD, Grain Combine Driver URINE CHLAMYDIA AMP PROBE NEGATIVE [facility] Comment: No Chlamydia Trachomatis RNA detected in this patient's sample (REFERENCE RANGE/NORMAL VALUE: NOT DETECTED) 09/22/2014 3:46 PM EDT Narrative [facility] - 09/22/2014 3:46 PM EDT URINE CHLAMYDIA GC AMP PROBE us Elizabeth Devries NP LAB MICROBIOLOGY - GENERA L ORDERABLES Final Result [facility] [address] [place] [address], from Last 3 Months or Most Recently Relevant to Health Maintenance Care Teams Salesperson Floor Coverings Relationship Specialty Start Date End Date Elizabeth Devries NP PCP - General 10/12/16
--- OUTSIDE RECORDS SUMMARY | 2024-11-16 10:52 | XMS_ITS | Encounter Summary ---
Author Organization [facility] Address [address] [place] [address] Phone Care Team Providers Care C Software Developer Name Role Phone Elizabeth Devries INSURANCE ASSISTANT Primary Care Provider Un available Encounter Details Date Type Department Care Team (Late st Contact Info) Description 11/29/2009 Documentation [facility] [address] [place], [place] [phone] Family Medicine, Physician [address] [place] [address] Social History Tobacco Use Types Packs/Day Years [...] on filedocumented in this encounter Care Teams C Software Developer Relationship Specialty Start Date End Date Elizabeth Devries NP PCP - General 10/12/16 documented as of this encounter
--- OUTSIDE RECORDS SUMMARY | 2024-11-16 10:52 | XMS_ITS | Encounter Summary ---
Author Organization [facility] Address [address] [place] [address] Phone Care Team Providers Care Contact Center Consultant Name Role Phone Elizabeth Devries SEARCH PLANNER Primary Care Provider Un available Encounter Details Date Type Department Care Team (Late st Contact Info) Description 10/18/2016 Conversion Encounter [facility] - [address] [address] Social History Tobacco Use Types Packs/Day Years [...] on filedocumented in this encounter Care Teams Contact Center Consultant Relationship Specialty Start Date End Date Elizabeth Devries NP PCP - General 10/12/16 documented as of this encounter
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
--- OUTSIDE RECORDS SUMMARY | 2024-11-16 10:52 | XMS_ITS | Encounter Summary ---
Author Organization [facility] Address [address] [place] [phone] Phone Care Team Providers Care Children'S Choir Director Name Role Phone Elizabeth Devries FAMILY ENGAGEMENT SPECIALIST Primary Care Provider Un available Encounter Details Date Type Department Care Team (Late st Contact Info) Description 02/20/2010 Documentation [facility] [address] [place], [place] [phone] Family Medicine, Physician [address] [place] [address] Social History Tobacco Use Types Packs/Day Years [...] on filedocumented in this encounter Care Teams Children'S Choir Director Relationship Specialty Start Date End Date Elizabeth Devries NP PCP - General 10/12/16 documented as of this encounter
== END 2024-11-16 10:17 | disposition home or self-care (01) ==
LOC: HO.HOS 09:13
DX: M79.641 Pain in right hand (principal); S52.501A Unspecified fracture of the lower end of right radius, initial encounter for closed fracture
CPT/HCPCS: 29085; 99024

== ENCOUNTER → 2024-11-16 09:13 | Outpatient (BNVA) | payer OTHER, SELFPAY | DX: M79.641 Pain in right hand (principal); S52.501D Unspecified fracture of the lower end of right radius, subsequent encounter for closed fracture with routine healing | CPT/HCPCS: 29085 ==

== ENCOUNTER 2024-11-21 07:54 | Outpatient (REF) | payer OTHER, SELFPAY ==
--- OUTSIDE RECORDS SUMMARY | 2023-12-17 07:56 | XMS_ITS | Encounter Summary ---
Author Organization [facility] Address [address] [place] [address] Care Team Providers Care Head Of Music Name Role Phone Reny Martinez MD Primary Care Provider [phone] Encounter Details Date Type Department Care Team (Latest Contact Info) Description 12/17/2023 7:56 AM EDT Hospital Encounter TH HISTORIC ENCOUNTERS EASTERN CONVERSION ONLY Tiffany Sheppard PA [address] [place] [address] Irritable bowel syndrome with constipation Social History [...] for your loved ones. For example, child support specialist or elderly care for an older adult? [...] Info) Description 12/02/2024 8:15 AM EDT Appointment [facility] Nuclear Medicine [address] [place] [phone] 01/07/2025 1:00 PM EST Office Visit Gastroenterology - [place] 175 [facility] 175 [facility] [address] [place] [phone] Tiffany Sheppard PA 175 [facility] 200 [place] [address] 02/10/2025 2:30 PM EST Office Visit Adult Medicine [facility] [address] [place] [phone] Maura Gupta PA [address] [place] [address] documented as of this encounter Procedures Procedure Name Priority Date/Time Associated Diagnosis Comments CR UGI W AIR ROUTINE Routine 12/17/2023 11:54 AM EDT Irritable bowel syndrome with constipation documented in this encounter Results * CR UGI W AIR ROUTINE (12/17/2023 11:54 AM EDT) Anatomical Region Laterality Modality Radiographic Tonia ging 12/17/2023 8:04 AM EDT Narrative 12/17/2023 11:54 AM EDT [facility] Diagnostic Imaging Department [address] [place] [address] Patient: ARELIS RIDDLE D.O.B./Age/Sex: 1995 - F Unit#: [id number] Location/Status: SPDIGEN/REG CLI Mnemonic/[facility] Ordering Physician: TIFFANY SHEPPARD CR UGI W Air Routine - 12/17/2348 Report Status:Signed HISTORY: Patient is a 28-year-old female with history of pelvic congestion, irritable bowel syndrome, constipation. COMPARISON: CT abdomen and pelvis July 28, 2022 FINDINGS: PROPERTY INSURANCE AGENT radiographs: Principal Architectural Firm AP radiograph of the abdomen obtained. Bowel [...] Procedure Note Desiree Alexandre MD - 12/31/2023 [facility] Diagnostic Imaging Department [address] [place], [place] [address] Patient: ARELIS RIDDLE./Age/Sex: 1995 - - Unit#: [id number] Location/Status: SPDIGEN/REG CLI Mnemonic/Ordering Site: [facility] Ordering Physician: TIFFANY SHEPPARD CR UGI W Air Routine - 12/17/23 - 48 Report Status:Signed HISTORY: Patient is a 28-year-old female with history of pelviccongestion, irritable bowel syndrome, constipation. COMPARISON: CT abdomen and pelvis July 28, 2022 FINDINGS: PROPERTY INSURANCE AGENT radiographs: Principal Architectural Firm AP radiograph of the abdomen obtained. Bowelgas [...] by: DESIREE ALEXANDRE MD Dic Date/Time: 12/17/23 7805 Sign date/Time: 12/17/23 5213 us Tiffany ROSE IMG XR PROCEDURES Final Resul t documented in this encounter Visit Diagnoses Diagnosis Irritable bowel syndrome with constipation Irritable bowel syndrome documented in this encounter Care Teams Head Of Music Relationship Specialty Start Date End Date Reny Martinez MD PCP - General Internal Medicine 12/04/21 01/08/24 documented as of this encounter
--- NOTE | ~2024-11-21 | CT_ITS ---
EXAMINATION: CT WRIST WITHOUT CONTRAST, RIGHT CLINICAL INFORMATION: Right scaphoid pain COMPARISON: X-ray on October 30, 2024 TECHNIQUE: CT upper extremity joint was performed without contrast, right wrist This CT examination was performed using dose optimization techniques as appropriate, variously including the following: *Automated exposure control *Adjustment of mA and/or kV according to patient size (this includes techniques or standardized protocols for targeted exams where dose is matched to indication/reason for exam; i.e. extremities or head) *Use of iterative reconstruction technique FINDINGS: There is a lucency through the radial styloid extending to the articular surface concerning for nonspecific fracture. No other bony areas of concern are identified. Flexor and extensor tendons are grossly intact. There is no joint diastases. CT/CT wrist RT wo IV con IMPRESSION: There is an incomplete lucency through the distal end of the radial styloid extending into the articular surface raising question of an incomplete or nondisplaced fracture. If there is continued clinical concern for scaphoid fracture, consider MRI. IMPRESSION: Unremarkable examination. Electronically signed by: Abel Carlson MD 11/23/2024 09:53 AM EDT
--- OUTSIDE RECORDS SUMMARY | 2024-11-21 07:56 | XMS_ITS | Clinical Summary ---
Author Organization [facility] Address [address] [place] [address] Phone Care Team Providers Care Electric Motor Repairman Name Role Phone Elizabeth Devries NP Primary [...] complete this topic Procedures * Due to [place] law, this organization might not be sharing sensitive test results. Procedure Name Priority Date/Time Associated Diagnosis Comments CHLAMYDIA AND GONORRHEA, AMPLIFIED Routine 09/22/2014 3:46 PM EDT from Last 3 Months or Most Recently Relevant to Health Maintenance Results * Due to [place] state law, this organization might not be sharing sensitive test results. * Chlamydia and Gonorrhoea, Amplified (09/22/2014 3:46 PM EDT) URINE GC AMP PROBE NEGATIVE [facility] Comment: No Neisseria Gonorrhoeae RNA detected in this patient's sample (REFERENCE RANGE/NORMAL VALUE: NOT DETECTED) NOTE: This test uses chip bin conveyor tender-mediated amplification method to detect rRNA from C.Trachomatis [...] without risk of sexual abuse. Consult the [facility] if needed. Contact phone number . Therapeutic failure or success cannot be determined with the Aptima Combo2 assay since nucleic acid may persist following appropriate antimicrobial therapy. The Centers for Disease Control and Prevention (CDC) recommends confirmatory retesting using culture or a different nucleic acid amplification test when positive results occur, if indicated. Testing performed or reported by [facility], a Service of [facility], [address] [place] [address] Td Hadley MD, PhD, Lay Out Former URINE CHLAMYDIA AMP PROBE NEGATIVE [facility] Comment: No Chlamydia Trachomatis RNA detected in this patient's sample (REFERENCE RANGE/NORMAL VALUE: NOT DETECTED) 09/22/2014 3:46 PM EDT Narrative [facility] - 09/22/2014 3:46 PM EDT URINE CHLAMYDIA GC AMP PROBE us Elizabeth Devries NP LAB MICROBIOLOGY - GENERA L ORDERABLES Final Result [facility] [address] [place] [address], from Last 3 Months or Most Recently Relevant to Health Maintenance Care Teams Electric Motor Repairman Relationship Specialty Start Date End Date Elizabeth Devries NP PCP - General 10/12/16
--- OUTSIDE RECORDS SUMMARY | 2024-11-21 07:56 | XMS_ITS | Encounter Summary ---
Author Organization [facility] Address [address] [place] [address] Phone Care Team Providers Care Shingler Name Role Phone Elizabeth Devries ORACLE SOLUTIONS ARCHITECT Primary Care Provider Un available Encounter Details Date Type Department Care Team (Late st Contact Info) Description 05/14/2013 Documentation [facility] [address] [place], [place] [phone] Family Medicine, Physician [address] [place] [address] Social History Tobacco Use Types Packs/Day Years [...] on filedocumented in this encounter Care Teams Shingler Relationship Specialty Start Date End Date Elizabeth Devries NP PCP - General 10/12/16 documented as of this encounter
--- OUTSIDE RECORDS SUMMARY | 2024-11-21 07:56 | XMS_ITS | Encounter Summary ---
Author Organization [facility] Address [address] [place] [address] Phone Care Team Providers Care District Engineer Name Role Phone Elizabeth Devries SHADER AND TONER Primary Care Provider Un available Encounter Details Date Type Department Care Team (Late st Contact Info) Description 02/09/2011 Documentation [facility] [address] [place], [place] [phone] Family Medicine, Physician [address] [place] [address] Social History Tobacco Use Types Packs/Day Years [...] on filedocumented in this encounter Care Teams District Engineer Relationship Specialty Start Date End Date Elizabeth Devries NP PCP - General 10/12/16 documented as of this encounter
--- OUTSIDE RECORDS SUMMARY | 2024-11-21 07:56 | XMS_ITS | Encounter Summary ---
Author Organization [facility] Address [address] [place] [address] Phone Care Team Providers Care Cut Order Hand Name Role Phone Elizabeth Devries YARN CLEANER Primary Care Provider Un available Encounter Details Date Type Department Care Team (Late st Contact Info) Description 10/18/2016 Conversion Encounter [facility] - [address] [address] Social History Tobacco Use Types Packs/Day Years [...] on filedocumented in this encounter Care Teams Cut Order Hand Relationship Specialty Start Date End Date Elizabeth Devries NP PCP - General 10/12/16 documented as of this encounter
--- OUTSIDE RECORDS SUMMARY | 2024-11-21 07:56 | XMS_ITS | Encounter Summary ---
Author Organization [facility] Address [address] [place] [address] Phone Care Team Providers Care Director Of Promotions Name Role Phone Elizabeth Devries SPOUT LINER HELPER Primary Care Provider Un available Encounter Details Date Type Department Care Team (Late st Contact Info) Description 02/09/2011 Documentation [facility] [address] [place], [place] [phone] Family Medicine, Physician [address] [place] [address] Social History Tobacco Use Types Packs/Day Years [...] on filedocumented in this encounter Care Teams Director Of Promotions Relationship Specialty Start Date End Date Elizabeth Devries NP PCP - General 10/12/16 documented as of this encounter
--- OUTSIDE RECORDS SUMMARY | 2024-11-21 07:56 | XMS_ITS | Clinical Summary ---
Author Organization [facility] [place] Address [address] [place] [address] Care Team Providers Care Selector Packer Name Role Phone Reny Martinez MD Primary Care Provider [phone] Allergies Active Allergy Reactions Criticality Noted Date [...] day. Active PNV Comb 13/Iron Cb/FA/DSS/DHA ( 48-PDQY-LT-DSS- DHA ORAL) Take 1 tablet by mouth [...] Anxiety and depression 12/03/2023 Overview (12/03/2023): in [place]; Elizabeth Bryant; every 3 months Ganglion cyst [...] helps. Patient had chest CT 08/08/2022 at [facility] that showed mild curvature of the thoracic spine, convexity to the right, Schmorl nodes in the right and lower thoracic spine. She also had CT abdomen and pelvis 07/28/2022 at [facility] and lumbar spine x- rays 12/06/2021 at [facility], we reviewed images on the computer together, [...] that she is eating enough at the alf, but she says she gets what she [...] recurrent major depressive disorder, without psychotic features ([facility] V24, [facility] V28) 02/17/2019 Substance abuse (CMS/HCC V24, [facility] V28) 07/04 Overview (12/03/2023): Admitted to [facility] and cocaine use recently at visit on 07/04/16, previously prescribed suboxone [place] [facility] lab from 08/11/2018: (+) for benzo, cociane, opiates, cannabinoid Chronic abdominal pain 08/04/2015 Encounters Date Type Department Care Team Description 09/30/2024 1:00 PM EDT Office Visit Gastroenterology [facility] [address] [place] [address] Tiffany Sheppard PA Abnormal upper gastrointestinal barium series (Primary Dx); Irritable bowel syndrome with constipation; Early satiety; Chronic abdominal pain 09/30/2024 Telephone Gastroenterology [facility] [address] [facility] [address] [place] [address] Tiffany Sheppard PA from Last 3 Months Immunizations Name Administration Dates Next Due DTP 10/22/1995, 5,1994,06/28 DTaP (Infanrix) 6wks to less than 7yo 06/21/1999 DTaP 5 pertussis antigens, D iptheria Tetanus acellular pertussis (Daptacel) 6wks to less than 7yo 06/21/1999 [id number] (Pentacel) 2mo to less than 5yo 1994,1994,1994 [...] Site/Laterality Comments UPPER GASTROINTESTINAL ENDOSCOPY 08/03/2015 PROCEDURE: [place] UPPER GI ENDOSCOPY PERFORMED; COMMENT: Visually normal on PPI treatment. FOOT SURGERY 2017 PROCEDURE: HISTORICAL FOOT SURGERY OTHER SURGICAL HISTORY N/A PROCEDURE: [place] UNLISTED LAPROSCOPY PROCEDURE SPERMATIC CORD OTHER SURGICAL HISTORY 07/18/2022 PROCEDURE: HISTORY OTHER; COMMENT: Laparoscopic surgery for endometriosis Medical History Medical History Date Comments Anxiety and depression DX:Anxiet y and depression; COMMENT: in [place]; Elizabeth Bryant; every 3 months Metacarpal bone fracture 06/16/2019 DX:[place] carpal bone fracture; COMMENT: 03/23 closed displaced right fifth metacarpal bone Endometriosis DX:Endometriosis Elevated liver enzymes DX:Elevat ed liver enzymes; COMMENT: improved, was admitted to [facility] Scoliosis DX:Scoliosis Female pelvic congestion syndrome 04/12/2022 [...] your loved ones. For example, child care group leader or elderly care for an older adult? [...] Description 12/02/2024 8:[address] [facility] Nuclear Medicine [address] [place] [address] 01/07/2025 1:00 PM EST Office Visit Gastroenterology - [place] 175 [facility] 175 [facility] [address] [place] [phone] Tiffany Sheppard PA [address] [address] 02/10/2025 2:30 PM EST Office Visit Adult Medicine [address] [address] Maura Gupta PA [address] [place] [address] Health Maintenance Due Date Last Done Comments [...] direct LDL (01/27/2024 3:26 PM EST) Pathologist [facility] Cholesterol 205(H) 0 - 200 mg/dL LAB CHEMISTRY METHOD 01/27/2024 7:34 PM [facility] Triglycerides 83 0 - 150 mg/dL LAB CHEMISTRY METHOD 01/27/2024 7:34 PM [facility] HDL 71 >=40 mg/dL LAB CHEMISTRY METHOD 01/27/2024 7:34 PM [facility] LDL Calculated 117(H) 0 - 100 mg/dL LAB CHEMISTRY METHOD 01/27/2024 7:34 PM [facility] VLDL Cholesterol Ramesh 16.6 mg/dL LAB CHEMISTRY METHOD 01/27/2024 7:34 PM [facility] Non HDL Chol. (LDL+VLDL) 134 <145 mg/dL LAB CHEMISTRY METHOD 01/27/2024 7:34 PM [facility] Chol/HDL Ratio 2.9 0.0 - 4.4 LAB CHEMISTRY METHOD 01/27/2024 7:34 PM [facility] Blood Venous blood specimen / Unknown Venipuncture / Unknown 01/27/2024 3:26 PM EST 01/27/2024 3:26 PM EST Maura ROSE LAB BLOOD ORDERABLES Final Res ult [facility] [address] [place] [address], * Hepatitis panel, acute with reflex to confirmation (01/27/2024 3:26 PM EST) [facility] Hepatitis B Surface Ag Negative Negative LAB CHEMISTRY METHOD 01/27/2024 8:31 PM [facility] Hepatitis A Antibody IgM Negative Negative LAB CHEMISTRY METHOD 01/27/2024 8:31 PM [facility] Hep B Core IgM Negative Negative LAB CHEMISTRY METHOD 01/27/2024 8:31 PM EST [facility] Hepatitis C Antibody Negative Negative LAB CHEMISTRY METHOD 01/27/2024 8:31 PM EST [facility] Blood Venous blood specimen / Unknown Venipuncture / Unknown 01/27/2024 3:26 PM EST 01/27/2024 3:26 PM EST Maura ROSE LAB BLOOD ORDERABLES Final Res ult [facility] [address] [place] [address], [place] [phone] * Cervical Cancer Screening: HPV (01/31/2023) Cervical Cancer Screening: HPV Negative, Abstracted Historical Provider HEALTH MAINTENANCE Final Result from Last 3 Months or Most Recently Relevant to Health Maintenance Insurance [facility] MEDICARE Member Subscriber Plan / Payer (Ef fective 2018-Present) Name:[id number] ARELIS Relation to Subscriber:Self Name:Arelis Butler Payer ID:[id number] Group ID:[id number] Type:Not on file Address: [place] [address] [phone] Care Teams Selector Packer Relationship Specialty Start Date End Date Reny Martinez MD [address] [place] [phone] PCP - General Internal Medicine 01/09/24
--- OUTSIDE RECORDS SUMMARY | 2024-11-21 07:56 | XMS_ITS | Encounter Summary ---
Author Organization [facility] Address [address] [place] [address] Phone Care Team Providers Care Rehabilitation Nurse Name Role Phone Elizabeth Devries POT FISHER Primary Care Provider Un available Encounter Details Date Type Department Care Team (Late st Contact Info) Description 11/29/2009 Documentation [facility] [address] [place], [place] [phone] Family Medicine, Physician [address] [place] [address] Social History Tobacco Use Types Packs/Day Years [...] on filedocumented in this encounter Care Teams Rehabilitation Nurse Relationship Specialty Start Date End Date Elizabeth Devries NP PCP - General 10/12/16 documented as of this encounter
--- OUTSIDE RECORDS SUMMARY | 2024-11-21 07:56 | XMS_ITS | Encounter Summary ---
Author Organization [facility] Address [address] [place] [address] Phone Care Team Providers Care Assortment Planner Name Role Phone Elizabeth Devries EASTERN PHILOSOPHY PROFESSOR Primary Care Provider Un available Encounter Details Date Type Department Care Team (Late st Contact Info) Description 02/20/2010 Documentation [facility] [address] [place], [place] [phone] Family Medicine, Physician [address] [place] [address] Social History Tobacco Use Types Packs/Day Years [...] on filedocumented in this encounter Care Teams Assortment Planner Relationship Specialty Start Date End Date Elizabeth Devries NP PCP - General 10/12/16 documented as of this encounter
== END 2024-11-21 07:55 | disposition home or self-care (01) ==
LOC: HO.CT 07:54
DX: M79.641 Pain in right hand (principal)
CPT/HCPCS: 73200

== ENCOUNTER → 2024-11-21 07:56 | Outpatient (BNV) | payer OTHER, SELFPAY | PROVIDERS: Visit Provider Radiology Diagnostic Radiology | DX: M25.531 Pain in right wrist (principal) | CPT/HCPCS: 73200 ==

== ENCOUNTER 2024-11-27 08:41 | Outpatient (AMB) | payer OTHER, SELFPAY ==
--- OUTSIDE RECORDS SUMMARY | 2023-12-17 07:56 | XMS_ITS | Encounter Summary ---
Author Organization [facility] Address [address] [place] [address] Care Team Providers Care Political Organizer Name Role Phone Reny Martinez MD Primary Care Provider [phone] Encounter Details Date Type Department Care Team (Latest Contact Info) Description 12/17/2023 7:56 AM EDT Hospital Encounter TH HISTORIC ENCOUNTERS EASTERN CONVERSION ONLY Tiffany Sheppard PA [address] [place] [address] [place] [address] Irritable bowel syndrome with constipation Social History [...] care for your loved ones. For example, director maternal child or elderly care for an older adult? [...] Info) Description 12/02/2024 8:15 AM EDT Appointment [facility] Nuclear Medicine [address] [place] [phone] 01/07/2025 1:00 PM EST Office Visit Gastroenterology - [place] 175 [facility] 175 [facility] [address] [place] [phone] Tiffany Sheppard PA 175 [facility] 200 [place] [address] 02/10/2025 2:30 PM EST Office Visit Adult Medicine [facility] [address] [place] [phone] Maura Gupta PA [address] [place] [address] documented as of this encounter Procedures Procedure Name Priority Date/Time Associated Diagnosis Comments CR UGI W AIR ROUTINE Routine 12/17/2023 11:54 AM EDT Irritable bowel syndrome with constipation documented in this encounter Results * CR UGI W AIR ROUTINE (12/17/2023 11:54 AM EDT) Anatomical Region Laterality Modality Radiographic Tonia ging 12/17/2023 8:04 AM EDT Narrative 12/17/2023 11:54 AM EDT [facility] Diagnostic Imaging Department [address] [place] [address] Patient: ARELIS RIDDLE D.O.B./Age/Sex: 1995 - F Unit#: [id number] Location/Status: SPDIGEN/REG CLI Mnemonic[facility] Ordering Physician: TIFFANY SHEPPARD CR UGI W Air Routine - 12/17/2348 Report Status:Signed HISTORY: Patient is a 28-year-old female with history of pelvic congestion, irritable bowel syndrome, constipation. COMPARISON: CT abdomen and pelvis July 28, 2022 FINDINGS: THERAPEUTIC RECREATION SPECIALIST radiographs: Underwear Trimmer AP radiograph of the abdomen obtained. Bowel [...] Procedure Note Desiree Alexandre MD - 12/31/2023 [facility] Diagnostic Imaging Department [address] [place], [place] [address] Patient: ARELIS RIDDLE./Age/Sex: 1995 - - Unit#: [id number] Location/Status: SPDIGEN/REG CLI Mnemonic/Ordering Site: [facility] Ordering Physician: TIFFANY SHEPPARD CR UGI W Air Routine - 12/17/23 - 48 Report Status:Signed HISTORY: Patient is a 28-year-old female with history of pelviccongestion, irritable bowel syndrome, constipation. COMPARISON: CT abdomen and pelvis July 28, 2022 FINDINGS: THERAPEUTIC RECREATION SPECIALIST radiographs: Underwear Trimmer AP radiograph of the abdomen obtained. Bowelgas [...] by: DESIREE ALEXANDRE MD Dic Date/Time: 12/17/23 2473 Sign date/Time: 12/17/23 3882 us Tiffany ROSE IMG XR PROCEDURES Final Resul t documented in this encounter Visit Diagnoses Diagnosis Irritable bowel syndrome with constipation Irritable bowel syndrome documented in this encounter Care Teams Political Organizer Relationship Specialty Start Date End Date Reny Martinez MD PCP - General Internal Medicine 12/04/21 01/08/24 documented as of this encounter
--- OUTSIDE RECORDS SUMMARY | 2024-11-27 09:08 | XMS_ITS | Encounter Summary ---
Author Organization [facility] Address [address] [place] [address] Phone Care Team Providers Care Cook'S Assistant Name Role Phone Elizabeth Devries CLOCK AND WATCH ASSEMBLER Primary Care Provider Un available Encounter Details Date Type Department Care Team (Late st Contact Info) Description 02/09/2011 Documentation [facility] [address] [place], [place] [phone] Family Medicine, Physician [address] [place] [address] Social History Tobacco Use Types Packs/Day Years [...] on filedocumented in this encounter Care Teams Cook'S Assistant Relationship Specialty Start Date End Date Elizabeth Devries NP PCP - General 10/12/16 documented as of this encounter
--- OUTSIDE RECORDS SUMMARY | 2024-11-27 09:08 | XMS_ITS | Encounter Summary ---
Author Organization [facility] Address [address] [place] [address] Phone Care Team Providers Care Installation Helper Name Role Phone Elizabeth Devries VAULT INSTALLER Primary Care Provider Un available Encounter Details Date Type Department Care Team (Late st Contact Info) Description 02/20/2010 Documentation [facility] [address] [place], [place] [phone] Family Medicine, Physician [address] [place] [address] Social History Tobacco Use Types Packs/Day Years [...] on filedocumented in this encounter Care Teams Installation Helper Relationship Specialty Start Date End Date Elizabeth Devries NP PCP - General 10/12/16 documented as of this encounter
--- OUTSIDE RECORDS SUMMARY | 2024-11-27 09:08 | XMS_ITS | Clinical Summary ---
Author Organization [facility] [place] Address [address] [place] [address] Care Team Providers Care Laborer Concrete Paving Name Role Phone Reny Martinez MD Primary Care Provider [phone] Allergies Active Allergy Reactions Criticality Noted Date [...] day. Active PNV Comb 13/Iron Cb/FA/DSS/DHA ( 87-OSDN-WZ-DSS- DHA ORAL) Take 1 tablet by mouth [...] Anxiety and depression 12/03/2023 Overview (12/03/2023): in [place]; Elizabeth Bryant; every 3 months Ganglion cyst [...] helps. Patient had chest CT 08/08/2022 at [facility] that showed mild curvature of the thoracic spine, convexity to the right, Schmorl nodes in the right and lower thoracic spine. She also had CT abdomen and pelvis 07/28/2022 at [facility] and lumbar spine x- rays 12/06/2021 at [facility], we reviewed images on the computer together, [...] that she is eating enough at the skilled nursing, but she says she gets what she [...] recurrent major depressive disorder, without psychotic features ([facility] V24, [facility] V28) 02/17/2019 Substance abuse (CMS/HCC V24, [facility] V28) 07/04 Overview (12/03/2023): Admitted to [facility] and cocaine use recently at visit on 07/04/16, previously prescribed suboxone [facility] lab from 08/11/2018: (+) for benzo, cociane, opiates, cannabinoid Chronic abdominal pain 08/04/2015 Encounters Date Type Department Care Team Description 09/30/2024 1:00 PM EDT Office Visit Gastroenterology [facility] [address] [place] [address] Tiffany Sheppard PA Abnormal upper gastrointestinal barium series (Primary Dx); Irritable bowel syndrome with constipation; Early satiety; Chronic abdominal pain 09/30/2024 Telephone Gastroenterology [facility] [address] [facility] [address] [place] [address] Tiffany Sheppard PA from Last 3 Months Immunizations Name Administration Dates Next Due DTP 10/22/1995, 5,1994,06/28 DTaP (Infanrix) 6wks to less than 7yo 06/21/1999 DTaP 5 pertussis antigens, D iptheria Tetanus acellular pertussis (Daptacel) 6wks to less than 7yo 06/21/1999 [id number] (Pentacel) 2mo to less than 5yo 1994,1994,1994 [...] Site/Laterality Comments UPPER GASTROINTESTINAL ENDOSCOPY 08/03/2015 PROCEDURE: [place] UPPER GI ENDOSCOPY PERFORMED; COMMENT: Visually normal on PPI treatment. FOOT SURGERY 2017 PROCEDURE: HISTORICAL FOOT SURGERY OTHER SURGICAL HISTORY N/A PROCEDURE: [place] UNLISTED LAPROSCOPY PROCEDURE SPERMATIC CORD OTHER SURGICAL HISTORY 07/18/2022 PROCEDURE: HISTORY OTHER; COMMENT: Laparoscopic surgery for endometriosis Medical History Medical History Date Comments Anxiety and depression DX:Anxiet y and depression; COMMENT: in [place]; Elizabeth Bryant; every 3 months Metacarpal bone fracture 06/16/2019 DX:[place] carpal bone fracture; COMMENT: 03/23 closed displaced right fifth metacarpal bone Endometriosis DX:Endometriosis Elevated liver enzymes DX:Elevat ed liver enzymes; COMMENT: improved, was admitted to [facility] Scoliosis DX:Scoliosis Female pelvic congestion syndrome 04/12/2022 [...] for your loved ones. For example, children's program coordinator or elderly care for an older adult? [...] Info) Description 12/02/2024 8:15 AM EDT Appointment [facility] Nuclear Medicine [address] [place] [address] 01/07/2025 1:00 PM EST Office Visit Gastroenterology - [place] 175 [facility] 175 [facility] [address] [place] [phone] Tiffany Sheppard PA [address] [address] 02/10/2025 2:30 PM EST Office Visit Adult Medicine [address] [phone] Maura Gupta PA [address] [place] [address] Health Maintenance Due Date Last Done Comments Hepatitis A Vaccines (1 of 2 - Risk 2-dose series) 2013 Medicare Annual Wellness Visit 06/16/2021 Depression Screening 03/04/2024 01/27/2024 Social Influencers of Health Screening 01/26/2025 01/27/2024 Cervical Cancer Screening: HPV 02/01/2028 01/31/2023 Cholesterol Screening (Lipid Panel) 01/26/2029 01/27/2024, 06/15/2020, 06/15/2020 DTaP,Tdap,and Td Vaccines (8 - Td or Tdap) 06/27/2032 06/27/2022, 12/05/2006, 06/21/1999, Additional history exists RSV Immunization Adult Patients (1 - 1-dose 75+ series) 2069 HIB Vaccines Aged Out 1994, 11/02, 1994, [...] LAB CHEMISTRY METHOD 01/27/2024 7:34 PM EST [facility] Triglycerides 83 0 - 150 mg/dL LAB CHEMISTRY METHOD 01/27/2024 7:34 PM EST [facility] HDL 71 >=40 mg/dL LAB CHEMISTRY METHOD 01/27/2024 7:34 PM EST [facility] LDL Calculated 117(H) 0 - 100 mg/dL LAB CHEMISTRY METHOD 01/27/2024 7:34 PM [facility] VLDL Cholesterol Ramesh 16.6 mg/dL LAB CHEMISTRY METHOD 01/27/2024 7:34 PM [facility] Non HDL Chol. (LDL+VLDL) 134 <145 mg/dL LAB CHEMISTRY METHOD 01/27/2024 7:34 PM [facility] Chol/HDL Ratio 2.9 0.0 - 4.4 LAB CHEMISTRY METHOD 01/27/2024 7:34 PM [facility] Blood Venous blood specimen / Unknown Venipuncture / Unknown 01/27/2024 3:26 PM EST 01/27/2024 3:26 PM EST Maura ROSE LAB BLOOD ORDERABLES Final Res ult [facility] [address] [place] [address], [place] [phone] * Hepatitis panel, acute with reflex to confirmation (01/27/2024 3:26 PM EST) Pathologist [facility] Hepatitis B Surface Ag Negative Negative LAB CHEMISTRY METHOD 01/27/2024 8:31 PM EST [facility] Hepatitis A Antibody IgM Negative Negative LAB CHEMISTRY METHOD 01/27/2024 8:31 PM [facility] Hep B Core IgM Negative Negative LAB CHEMISTRY METHOD 01/27/2024 8:31 PM EST [facility] Hepatitis C Antibody Negative Negative LAB CHEMISTRY METHOD 01/27/2024 8:31 PM EST [facility] Blood Venous blood specimen / Unknown Venipuncture / Unknown 01/27/2024 3:26 PM EST 01/27/2024 3:26 PM EST Maura ROSE LAB BLOOD ORDERABLES Final Res ult [facility] [address] [place] [address], * Cervical Cancer Screening: HPV (01/31/2023) Pathologist [facility] Cervical Cancer Screening: HPV Negative, Abstracted Historical Provider HEALTH MAINTENANCE Final Result from Last 3 Months or Most Recently Relevant to Health Maintenance Insurance [address] [place] [address] [employer] MEDICARE Member Subscriber Plan / Payer (Ef fective 2018-Present) Name:ARELSI RIDDLE Relation to Subscriber:Self Name:Arelis Riddle Payer ID:[id number] Group ID:[id number] Type:Not on file Address: [place] [address] [address] [phone] Care Teams Laborer Concrete Paving Relationship Specialty Start Date End Date Reny Martinez MD [address] [place] [phone] PCP - General Internal Medicine 01/09/24
--- OUTSIDE RECORDS SUMMARY | 2024-11-27 09:08 | XMS_ITS | Encounter Summary ---
Author Organization [facility] Address [address] [place] [address] Phone Care Team Providers Care Tube Former Operator Name Role Phone Elizabeth Devries ASPHALT PATCHER Primary Care Provider Un available Encounter Details Date Type Department Care Team (Late st Contact Info) Description 11/29/2009 Documentation [facility] [address] [place], [place] [phone] Family Medicine, Physician [address] [place] [address] Social History Tobacco Use Types Packs/Day Years [...] on filedocumented in this encounter Care Teams Tube Former Operator Relationship Specialty Start Date End Date Elizabeth Devries NP PCP - General 10/12/16 documented as of this encounter
--- OUTSIDE RECORDS SUMMARY | 2024-11-27 09:08 | XMS_ITS | Encounter Summary ---
Author Organization [facility] Address [address] [place] [address] Phone Care Team Providers Care Corn Cutter Name Role Phone Elizabeth Devries CONTACT REPRESENTATIVE Primary Care Provider Un available Encounter Details Date Type Department Care Team (Late st Contact Info) Description 10/18/2016 Conversion Encounter [facility] - [address] [address] Social History Tobacco Use Types Packs/Day Years [...] on filedocumented in this encounter Care Teams Corn Cutter Relationship Specialty Start Date End Date Elizabeth Devries NP PCP - General 10/12/16 documented as of this encounter
--- OUTSIDE RECORDS SUMMARY | 2024-11-27 09:08 | XMS_ITS | Clinical Summary ---
Author Organization [facility] Address [address] [place] [address] Phone Care Team Providers Care Full Stack Php Developer Name Role Phone Elizabeth Devries NP Primary [...] complete this topic Procedures * Due to [place] Immediately law, this organization might not be sharing sensitive test results. Procedure Name Priority Date/Time Associated Diagnosis Comments CHLAMYDIA AND GONORRHEA, AMPLIFIED Routine 09/22/2014 3:46 PM EDT from Last 3 Months or Most Recently Relevant to Health Maintenance Results * Due to [place] state law, this organization might not be sharing sensitive test results. * Chlamydia and Gonorrhoea, Amplified (09/22/2014 3:46 PM EDT) URINE GC AMP PROBE NEGATIVE [facility] Comment: No Neisseria Gonorrhoeae RNA detected in this patient's sample (REFERENCE RANGE/NORMAL VALUE: NOT DETECTED) NOTE: This test uses director of flight operations-mediated amplification method to detect rRNA from C.Trachomatis [...] without risk of sexual abuse. Consult the [facility] if needed. Contact phone number . Therapeutic failure or success cannot be determined with the Aptima Combo2 assay since nucleic acid may persist following appropriate antimicrobial therapy. The Centers for Disease Control and Prevention (CDC) recommends confirmatory retesting using culture or a different nucleic acid amplification test when positive results occur, if indicated. Testing performed or reported by [facility], a Service of [facility], [address] [place] [address] Td Hadley MD, PhD, Steward/Stewardess Banquet URINE CHLAMYDIA AMP PROBE NEGATIVE [facility] Comment: No Chlamydia Trachomatis RNA detected in this patient's sample (REFERENCE RANGE/NORMAL VALUE: NOT DETECTED) 09/22/2014 3:46 PM EDT Narrative [facility] - 09/22/2014 3:46 PM EDT URINE CHLAMYDIA GC AMP PROBE us Elizabeth Devries NP LAB MICROBIOLOGY - GENERA L ORDERABLES Final Result [facility] [address] [place] [address], from Last 3 Months or Most Recently Relevant to Health Maintenance Care Teams Full Stack Php Developer Relationship Specialty Start Date End Date Elizabeth Devries NP PCP - General 10/12/16
--- OUTSIDE RECORDS SUMMARY | 2024-11-27 09:08 | XMS_ITS | Encounter Summary ---
Author Organization [facility] Address [address] [place] [address] Phone Care Team Providers Care Rn Concurrent Review Name Role Phone Elizabeth Devries HEDGE FUND ACCOUNTANT Primary Care Provider Un available Encounter Details Date Type Department Care Team (Late st Contact Info) Description 02/09/2011 Documentation [facility] [address] [place], [place] [phone] Family Medicine, Physician [address] [place] [address] Social History Tobacco Use Types Packs/Day Years [...] on filedocumented in this encounter Care Teams Rn Concurrent Review Relationship Specialty Start Date End Date Elizabeth Devries NP PCP - General 10/12/16 documented as of this encounter
--- OUTSIDE RECORDS SUMMARY | 2024-11-27 09:08 | XMS_ITS | Encounter Summary ---
Author Organization [facility] Address [address] [place] [address] Phone Care Team Providers Care Global Marketing Operations Manager Name Role Phone Elizabeth Devries EXPEDITER SERVICE ORDER Primary Care Provider Un available Encounter Details Date Type Department Care Team (Late st Contact Info) Description 05/14/2013 Documentation [facility] [address] [place], [place] [phone] Family Medicine, Physician [address] [place] [address] Social History Tobacco Use Types Packs/Day Years [...] on filedocumented in this encounter Care Teams Global Marketing Operations Manager Relationship Specialty Start Date End Date Elizabeth Devries NP PCP - General 10/12/16 documented as of this encounter
[2024-11-27 09:11] VITALS: BMI 21.0
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
== END 2024-11-27 09:44 | disposition home or self-care (01) ==
LOC: HO.HOS 08:42
DX: S52.501A Unspecified fracture of the lower end of right radius, initial encounter for closed fracture (principal); M79.643 Pain in unspecified hand
CPT/HCPCS: 99024

== ENCOUNTER 2025-01-06 14:48 | Outpatient (AMB) | payer OTHER, SELFPAY ==
--- OUTSIDE RECORDS SUMMARY | 2023-12-17 06:56 | XMS_ITS | Encounter Summary ---
Author Organization [facility] Address [address] [place] [address] Care Team Providers Care Camp Maintenance Supervisor Name Role Phone Reny Martinez MD Primary Care Provider [phone] Encounter Details Date Type Department Care Team (Latest Contact Info) Description 12/17/2023 7:56 AM EDT Hospital Encounter TH HISTORIC ENCOUNTERS EASTERN CONVERSION ONLY Tiffany Sheppard PA [address] [place] [address] Irritable bowel syndrome with constipation Social History [...] care for your loved ones. For example, ocular care technologist or elderly care for an older adult? [...] Care Team (Late st Contact Info) Description 01/07/2025 1:00 PM EST Office Visit Gastroenterology - [address] [facility] [address] [place] [phone] Tiffany Sheppard PA 299 [facility] [address] [place] [address] 02/10/2025 2:30 PM EST Office Visit Adult Medicine [facility] [address] [place] [phone] Maura Gupta PA [address] [place] [address] documented as of this encounter Procedures Procedure Name Priority Date/Time Associated Diagnosis Comments CR UGI W AIR ROUTINE Routine 12/17/2023 11:54 AM EDT Irritable bowel syndrome with constipation documented in this encounter Results * CR UGI W AIR ROUTINE (12/17/2023 11:54 AM EDT) Anatomical Region Laterality Modality Radiographic Tonia ging 12/17/2023 8:04 AM EDT Narrative 12/17/2023 11:54 AM EDT [facility] Diagnostic Imaging Department [address] [place] [address] Patient: ARELIS RIDDLE /Age/Sex: 1995 - 28 - F Unit#: [id number] Location/Status: [facility]/REG CLI Mnemonic/Ordering Site: [facility] Ordering Physician: TIFFANY SHEPPARD CR UGI W Air Routine - 12/17/23 - 0848 Report Status:Signed HISTORY: Patient is a 28-year-old female with history of pelvic congestion, irritable bowel syndrome, constipation. COMPARISON: CT abdomen and pelvis July 28, 2022 FINDINGS: CORK INSULATOR radiographs: Health Consultant AP radiograph of the abdomen obtained. Bowel [...] MD Dic Date/Time: 12/17/23928 Sign date/Time: 12/17/23 1156 Procedure Note Desiree Alexandre MD - 12/31/2023 [facility] Diagnostic Imaging Department [address] [place] [address] Patient: RIDDLEARELIS/Age/Sex: 1995 - - F Unit#: [id number] Location/Status: [facility]/REG CLI Mnemonic/Ordering Site: [facility] Ordering Physician: TIFFANY SHEPPARD CR UGI W Air Routine - 12/17/23 - 0848 Report Status:Signed HISTORY: Patient is a 28-year-old female with history of pelviccongestion, irritable bowel syndrome, constipation. COMPARISON: CT abdomen and pelvis July 28, 2022 FINDINGS: CORK INSULATOR radiographs: Health Consultant AP radiograph of the abdomen obtained. Bowelgas [...] Dic Date/Time: 12/17/23 0929 Sign date/Time: 12/17/23 2866 Tiffany ROSE IMG XR PROCEDURES Final Resul t documented in this encounter Visit Diagnoses Diagnosis Irritable bowel syndrome with constipation Irritable bowel syndrome documented in this encounter Care Teams Camp Maintenance Supervisor Relationship Specialty Start Date End Date Reny Martinez MD PCP - General Internal Medicine 12/04/21 01/08/24 documented as of this encounter
[2025-01-06 14:53] VITALS: BMI 21.0
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
--- OUTSIDE RECORDS SUMMARY | 2025-01-06 17:55 | XMS_ITS | Encounter Summary ---
Author Organization [facility] Address [address] [place] [phone] Phone Care Team Providers Care Restrike Hammer Operator Name Role Phone Elizabeth Devries MANAGER INTERNATIONAL Primary Care Provider Un available Encounter Details Date Type Department Care Team (Late st Contact Info) Description 05/14/2013 Documentation [facility] [address] [place], [place] [phone] Family Medicine, Physician [address] [place] [address] Social History Tobacco Use Types Packs/Day Years [...] on filedocumented in this encounter Care Teams Restrike Hammer Operator Relationship Specialty Start Date End Date Elizabeth Devries NP PCP - General 10/12/16 documented as of this encounter
--- OUTSIDE RECORDS SUMMARY | 2025-01-06 17:55 | XMS_ITS | Encounter Summary ---
Author Organization [facility] Address [address] [place] [phone] Phone Care Team Providers Care Medical Care Evaluation Specialist Name Role Phone Elizabeth Devries INSIDE PLANT SUPERVISOR Primary Care Provider Un available Encounter Details Date Type Department Care Team (Late st Contact Info) Description 02/09/2011 Documentation [facility] [address] [place], [place] [phone] Family Medicine, Physician [address] [place] [address] Social History Tobacco Use Types Packs/Day Years [...] filedocumented in this encounter Care Teams Medical Care Evaluation Specialist Relationship Specialty Start Date End Date Elizabeth Devries NP PCP - General 10/12/16 documented as of this encounter
--- OUTSIDE RECORDS SUMMARY | 2025-01-06 17:56 | XMS_ITS | Encounter Summary ---
Author Organization [facility] Address [address] [place] [phone] Phone Care Team Providers Care Industrial Sweeper Cleaner Name Role Phone Elizabeth Devries MACHINE ASSEMBLER Primary Care Provider Un available Encounter Details Date Type Department Care Team (Late st Contact Info) Description 10/18/2016 Conversion Encounter [facility] - [address] [address] Social History Tobacco Use Types Packs/Day Years [...] on filedocumented in this encounter Care Teams Industrial Sweeper Cleaner Relationship Specialty Start Date End Date Elizabeth Devries NP PCP - General 10/12/16 documented as of this encounter
--- OUTSIDE RECORDS SUMMARY | 2025-01-06 17:56 | XMS_ITS | Encounter Summary ---
Author Organization [facility] Address [address] [place] [phone] Phone Care Team Providers Care Gleason Operator Name Role Phone Elizabeth Devries TECHNICAL PHOTOGRAPHER Primary Care Provider Un available Encounter Details Date Type Department Care Team (Late st Contact Info) Description 02/20/2010 Documentation [facility] [address] [place], [place] [phone] Family Medicine, Physician [address] [place] [address] Social History Tobacco Use Types Packs/Day Years [...] on filedocumented in this encounter Care Teams Gleason Operator Relationship Specialty Start Date End Date Elizabeth Devries NP PCP - General 10/12/16 documented as of this encounter
--- OUTSIDE RECORDS SUMMARY | 2025-01-06 17:56 | XMS_ITS | Clinical Summary ---
Author Organization [facility] [place] Address [address] [place] [address] Care Team Providers Care Car Jockey Name Role Phone Reny Martinez MD Primary Care Provider [phone] Allergies Active Allergy Reactions Criticality Noted Date Comments Aripiprazole 01/04/2021 Fluphenazine 06/12/2023 Haloperidol Numbness,Other,Palpi tatio ns High 06/14/2020 Other Seasonal Allergies Pollen Extracts 08/05/2017 Propanediol 05/08/2023 Medications acetaminophen (TYLENOL) 500 mg tablet Take 1 Tablet by mouth every 6 hours as needed (for pain)., 11/25/19 24 Active ibuprofen (ADVIL,MOTRIN) 600 mg tablet Take 1 Tablet by mouth every 8 hours as needed (chest wall pain). Take with food, Disp-30 Tablet, 10/10/19 24 Active hydrOXYzine pamoate (VISTARIL) 25 mg capsule Take 1 capsule (25 mg total) by mouth 1 (one) time each day. 09/02/19 24 Active phenylephrine- DM-APAP (Vicks DayQuil Cold-Flu Relief) 5-10-325 mg/15 mL liquid Take 15 mg by mouth 3 times daily as needed for Other 09/30/19 24 Active clonazePAM (KlonoPIN) 1 mg tablet Take 1 Tablet by mouth daily. Along with 0.5mg bid, Active methylphenidat e (RITALIN) 10 mg tablet Take 1 tablet (10 mg total) by mouth 2 (two) times a day. Active PNV Comb 13/Iron Cb/FA/DSS/DHA ( 14-FNHZ-RJ-DSS -DHA ORAL) Take 1 tablet by mouth 1 (one) time each day. 07/11/19 24 Active albuterol HFA (PROAIR HFA ; PROVENTIL HFA ; VENTOLIN HFA) 90 mcg/actuation inhaler Inhale 2 Puffs into the lungs every 6 hours as needed for Cough, Wheezing or Shortness of Breath for up to 30 days., 07/03/19 24 Active cloNIDine (CATAPRES) 0.1 mg tablet 06/06/19 24 Active clonazePAM (KlonoPIN) 0.5 mg tablet Take 1 tablet (0.5 mg total) by mouth 2 (two) times a day. Active DIPHENHYDRAMIN E HCL ORAL Take 25 mg by mouth if needed. Active mupirocin (BACTROBAN) 2 % ointment 05/06/19 24 Active nicotine polacrilex (NICORETTE) 4 mg gum Take 1 each (4 mg total) by mouth if needed. Active methylphenidat e (Ritalin) 10 mg tablet Take 1.5 Tablets by mouth every morning Active omeprazole OTC (PriLOSEC OTC) 20 mg EC tablet Take 1 tablet (20 mg total) by mouth 1 (one) time each day. Do not crush, chew, or split. 30 tablet 3 01/07/20 24 025 Active Additional Information Patient not taking.Reported on 09/30/2024 tretinoin (RETIN-A) 0.025 % cream 07/15/19 24 Active spironolactone (ALDACTONE) 100 mg tablet Take 1 tablet (100 mg total) by mouth 1 (one) time each day. 05/06/19 20 Active azelaic acid (FINACEA) 15 % gel 06/21/19 24 Active polyethylene glycol (MIRALAX) 17 gram packet TAKE 17 GRAMS (MIXED IN LIQUID) BY MOUTH ONCE EVERY DAY 30 packet 2 09/29/19 25 Active OLANZapine (ZyPREXA) 5 mg tablet Take 1.5 tablets (7.5 mg total) by mouth at bedtime. 09/23/19 25 Active famotidine (PEPCID) 40 mg tabletIndicati ons:Chronic abdominal pain Take 1 tablet (40 mg total) by mouth 2 (two) times a day. 180 tablet 3 10/01/19 25 Active plecanatide (Trulance) 3 mg tablet Take 1 tablet (3 mg total) by mouth 1 (one) time each day. 30 tablet 3 10/01/19 25 Active calcium citrate (CALCITRATE) 950 mg (200 mg elemental calcium) tablet Take 1 tablet (950 mg total) by mouth 1 (one) time each day. 90 tablet 10/16/19 25 026 Active metoclopramide (REGLAN) 5 mg tablet Take 1 tablet (5 mg total) by mouth 3 (three) times a day before meals. 90 each 1 12/17/19 25 026 Active linaCLOtide (LINZESS) 290 mcg capsule Take 1 capsule (290 mcg total) by mouth 1 (one) time each day. 30 capsule 1 12/17/19 25 Active cholecalcifero l (VITAMIN D-3) 25 mcg (1,000 unit) tablet TAKE 1 TABLET BY MOUTH EVERY DAY 90 tablet 01/06/20 25 Active cholecalcifero l (VITAMIN D-3) 25 mcg (1,000 unit) tablet Take 1 tablet (1,000 Units total) by mouth 1 (one) time each day. 90 tablet 10/16/19 25 025 Discontinued Active Problems Problem Noted Date Diagnosed Date [...] Anxiety and depression 12/03/2023 Overview (12/03/2023): in [place]; Elizabeth Bryant; every 3 months Ganglion cyst [...] helps. Patient had chest CT 08/08/2022 at [facility] that showed mild curvature of the thoracic spine, convexity to the right, Schmorl nodes in the right and lower thoracic spine. She also had CT abdomen and pelvis 07/28/2022 at [facility] and lumbar spine x- rays 12/06/2021 at [facility], we reviewed images on the computer [...] that she is eating enough at the halfway, but she says she gets what she [...] recurrent major depressive disorder, without psychotic features (CMS/HCC V24, CMS/HCC V28) 02/17/2019 Substance abuse ([facility] V24, [facility] V28) 07/04 Overview (12/03/2023): Admitted to and cocaine use recently at visit on 07/04/16, previously prescribed suboxone [place] [facility] lab from 08/11/2018: (+) for benzo, cociane, opiates, cannabinoid Chronic abdominal pain 08/04/2015 Encounters Date Type Department Care Team Description 12/12/2024 Results Follow-Up Gastroenterology - [place] 175 [facility] 175 [facility] [address] [place] [phone] Tiffany Sheppard PA 12/02/2024 7:39 AM EDT - 12/02/2024 11:59 PM EDT Hospital Encounter [facility] Nuclear Medicine [address] [place] [phone] Abnormal upper gastrointestinal barium series; Irritable bowel syndrome with constipation; Early satiety Discharge Disposition: Home or Self Care from Last 3 Months Immunizations Immunization Administration Dates Next Due DTP 10/22/1995, 5,1994,06/28 DTaP (Infanrix) 6wks to less than 7yo 06/21/1999 DTaP 5 pertussis antigens, D iptheria Tetanus acellular pertussis (Daptacel) 6wks to less than 7yo 06/21/1999 YRwH-BPD-ESP (Pentacel) 2mo to less than 5yo 1994,1994,1994 [...] Site/Laterality Comments UPPER GASTROINTESTINAL ENDOSCOPY 08/03/2015 PROCEDURE: NE UPPER GI ENDOSCOPY PERFORMED; COMMENT: Visually normal on PPI treatment. FOOT SURGERY 2017 PROCEDURE: HISTORICAL FOOT SURGERY OTHER SURGICAL HISTORY N/A PROCEDURE: NE UNLISTED LAPROSCOPY PROCEDURE SPERMATIC CORD OTHER SURGICAL HISTORY 07/18/2022 PROCEDURE: HISTORY OTHER; COMMENT: Laparoscopic surgery for endometriosis Medical History Medical History Date Comments Anxiety and depression DX:Anxiet y and depression; COMMENT: in [place]; Elizabeth Bryant; every 3 months Metacarpal bone fracture 06/16/2019 DX:[place] carpal bone fracture; COMMENT: 03/23 closed displaced right fifth metacarpal bone Endometriosis DX:Endometriosis Elevated liver enzymes DX:Elevat ed liver enzymes; COMMENT: improved, was admitted to [facility] Scoliosis DX:Scoliosis Female pelvic congestion syndrome 04/12/2022 DX:Female pelvic congestion syndrome; COMMENT: Noted on 04/04/2022 sono- offered contraception for management Family History Medical History Relation Name Comments Prostate cancer Maternal Grandfather Colon cancer Other Greatgrand raya Matty aternal Breast cancer Neg Hx Cancer [...] care for your loved ones. For example, early childhood lead teacher or elderly care for an older adult? [...] PM EST Office Visit Gastroenterology - [address] [phone] Tiffany Sheppard PA [address] [address] 02/10/2025 2:30 PM EST Office Visit Adult Medicine [address] [phone] Maura Gupta PA [address] [place] [phone] Health Maintenance Due Date Last Done Comments [...] Procedure Name Priority Date/Time Associated Diagnosis Comments NM GASTRIC EMPTYING STUDY Routine 12/02/2024 12:15 PM EDT Abnormal upper gastrointestinal barium series Irritable bowel syndrome with constipation Early satiety HEPATITIS PANEL, ACUTE WITH REFLEX TO CONFIRMATION Routine 01/27/2024 3:26 PM EST Routine physical examination LIPID PANEL WITH REFLEX TO DIRECT LDL Routine 01/27/2024 3:26 PM EST Routine physical examination HM HPV Routine 01/31/2023 from Last 3 Months or Most Recently Relevant to Health Maintenance Results * NM Gastric Emptying Study (12/02/2024 12:15 PM EDT) Anatomical Region Laterality Modality Body Nuclear Medicine 12/02/2024 12:1 3 PM EDT Impressions 12/02/2024 12:14 PM EDT Delayed solid material gastric emptying. Telerad ROSE ([id number]) -------- FINAL REPORT -------- Dictated By: Desiree Alexandre Dictated Date: 12/02/2024 12:13 ET Assigned Physician: Desiree Alexandre Reviewed and Electronically Signed By: Desiree Alexandre Signed Date: 12/02/2024 12:14 ET Workstation ID: [id number] Transcribed By: Self Edit Transcribed Date: 12/02/2024 12:13 ET Narrative 12/02/2024 12:14 PM EDT HISTORY: Early satiety. Question disordered gastric emptying. FINDINGS: Radionucleotide gastric emptying study performed following ingestion of 1.0 mCi of Tc99m sulfur colloid mixed with eggs for solid food evaluation. Solid food evaluation time to half peak clearance is 201.5 minutes with normal being less than 90 minutes. Patients 4 hour retention amount was calculated at 43%. Reference normal solid residual activity: less than 90% at 1 hour less than 60% at 2 hours less than 30% at 3 hours less than 10% at 4 hours Procedure Note Desiree Alexandre MD - 12/02/2024 HISTORY: Early satiety. Question disordered gastric emptying. FINDINGS: Radionucleotide gastric emptying study performed followingingestion of 1.0 mCi of Tc99m sulfur colloid mixed with eggs for solidfood evaluation. Solid food evaluation time to half peak clearance is 201.5 minutes withnormal being less than 90 minutes. Patients 4 hour retention amount was calculated at 43%. Reference normal solid residual activity: less than 90% at 1 hour less than 60% at 2 hours less than 30% at 3 hours less than 10% at 4 hours IMPRESSION: Delayed solid material gastric emptying. Meghan ROSE ([id number]) -------- FINAL REPORT -------- Dictated By: Desiree Alexandre Dictated Date: 12/02/2024 12:13 ET Assigned Physician: Desiree Alexandre Reviewed and Electronically Signed By: Desiree Alexandre Signed Date: 12/02/2024 12:14 ET Workstation ID: [id number] Transcribed By: Self Edit Transcribed Date: 12/02/2024 12:13 ET T[address] ROSE IMG CT PROCEDURES Final Resul t * (ABNORMAL) Lipid panel with reflex to direct LDL (01/27/2024 3:26 PM EST) Cholesterol 205(H) 0 - 200 mg/dL LAB CHEMISTRY METHOD 01/27/2024 7:34 PM [facility] Triglycerides 83 0 - 150 mg/dL LAB CHEMISTRY METHOD 01/27/2024 7:34 PM [facility] HDL 71 >=40 mg/dL LAB CHEMISTRY METHOD 01/27/2024 7:34 PM [facility] LDL Calculated 117(H) 0 - 100 mg/dL LAB CHEMISTRY METHOD 01/27/2024 7:34 PM [facility] VLDL Cholesterol Ramesh 16.6 mg/dL LAB CHEMISTRY METHOD 01/27/2024 7:34 PM [facility] Non HDL Chol. (LDL+VLDL) 134 <145 mg/dL LAB CHEMISTRY METHOD 01/27/2024 7:34 PM [facility] Chol/HDL Ratio 2.9 0.0 - 4.4 LAB CHEMISTRY METHOD 01/27/2024 7:34 PM EST [facility] Blood Venous blood specimen / Unknown Venipuncture / Unknown 01/27/2024 3:26 PM EST 01/27/2024 3:26 PM EST Maura ROSE LAB BLOOD ORDERABLES Final Res ult [facility] [address] [place] [address], [place] [phone] * Hepatitis panel, acute with reflex to confirmation (01/27/2024 3:26 PM EST) Hepatitis B Surface Ag Negative Negative LAB CHEMISTRY METHOD 01/27/2024 8:31 PM EST [facility] Hepatitis A Antibody IgM Negative Negative LAB CHEMISTRY METHOD 01/27/2024 8:31 PM EST [facility] Hep B Core IgM Negative Negative LAB CHEMISTRY METHOD 01/27/2024 8:31 PM EST [facility] Hepatitis C Antibody Negative Negative LAB CHEMISTRY METHOD 01/27/2024 8:31 PM EST [facility] Blood Venous blood specimen / Unknown Venipuncture / Unknown 01/27/2024 3:26 PM EST 01/27/2024 3:26 PM EST Maura ROSE LAB BLOOD ORDERABLES Final Res ult [facility] [address] [place] [address], [place] [phone] * Cervical Cancer Screening: HPV (01/31/2023) Pathologist [facility] Cervical Cancer Screening: HPV Negative, Abstracted Historical Provider HEALTH MAINTENANCE Final Result from Last 3 Months or Most Recently Relevant to Health Maintenance Insurance [facility] MEDICARE Member Subscriber Plan / Payer (Ef fective 2018-Present) Name:ARELIS RIDDLE Relation to Subscriber:Self Name:Arelis Riddle Payer ID:[id number] Group ID:[id number] Type:Not on file Address: [place] [address] [address] [id number] Care Teams Car Jockey Relationship Specialty Start Date End Date Reny Martinez MD [address] [place] [phone] PCP - General Internal Medicine 01/09/24
--- OUTSIDE RECORDS SUMMARY | 2025-01-06 17:56 | XMS_ITS | Clinical Summary ---
Author Organization [facility] Address [address] [place] [address] Phone Care Team Providers Care Institutional Nutrition Consultant Name Role Phone Elizabeth Devries NP Primary [...] complete this topic Procedures * Due to [place] [employer] law, this organization might not be sharing sensitive test results. Procedure Name Priority Date/Time Associated Diagnosis Comments CHLAMYDIA AND GONORRHEA, AMPLIFIED Routine 09/22/2014 3:46 PM EDT from Last 3 Months or Most Recently Relevant to Health Maintenance Results * Due to [place] state law, this organization might not be sharing sensitive test results. * Chlamydia and Gonorrhoea, Amplified (09/22/2014 3:46 PM EDT) URINE GC AMP PROBE NEGATIVE [facility] Comment: No Neisseria Gonorrhoeae RNA detected in this patient's sample (REFERENCE RANGE/NORMAL VALUE: NOT DETECTED) NOTE: This test uses head operator sulfide-mediated amplification method to detect rRNA from C.Trachomatis [...] without risk of sexual abuse. Consult the [facility] if needed. Contact phone number . Therapeutic failure or success cannot be determined with the Aptima Combo2 assay since nucleic acid may persist following appropriate antimicrobial therapy. The Centers for Disease Control and Prevention (CDC) recommends confirmatory retesting using culture or a different nucleic acid amplification test when positive results occur, if indicated. Testing performed or reported by [facility], a Service of [facility], [address] [place] [address] Td Hadley MD, PhD, Orthotist Or Prosthetist URINE CHLAMYDIA AMP PROBE NEGATIVE [facility] Comment: No Chlamydia Trachomatis RNA detected in this patient's sample (REFERENCE RANGE/NORMAL VALUE: NOT DETECTED) 09/22/2014 3:46 PM EDT Narrative [facility] - 09/22/2014 3:46 PM EDT URINE CHLAMYDIA GC AMP PROBE us Elizabeth Devries NP LAB MICROBIOLOGY - GENERA L ORDERABLES Final Result [facility] [address] [place] [address], from Last 3 Months or Most Recently Relevant to Health Maintenance Care Teams Institutional Nutrition Consultant Relationship Specialty Start Date End Date Elizabeth Devries NP PCP - General 10/12/16
--- OUTSIDE RECORDS SUMMARY | 2025-01-06 17:56 | XMS_ITS | Encounter Summary ---
Author Organization Address [address] [place] [address] Care Team Providers Care Security Systems Manager Name Role Phone Reny Martinez MD Primary Care Provider Reason for Visit * Reason Onset Date Comments provider call back 12/12/2024 Encounter Details Date Type Department Care Team ([facility] st Contact Info) Description 12/12/2024 Results Follow-Up Gastroenterology - [place] 175 [facility] 175 [facility] [address] [place] [phone] Tiffany Sheppard PA 299 [facility] [address] [place] [address] Social History Tobacco Use Types Packs/Day Years [...] Within the last 3 months, luis a dunn many times did you visit the emergency [...] for your loved ones. For example, child protective investigator or elderly care for an older adult? [...] AM EST documented as of this encounter Progress Notes * ROSE Batista - 12/17/2024 4:22 PM EDT Please tell patient to start taking Linzess and I sent her Reglan to improve her bloating. I sent those 2 medications last night. TY * Eli Fu - 12/17/2024 10:00 AM EDT Patient returning call * ROSE Batista - 12/16/2024 4:07 PM EDT I will send to her pharmacy high dose of Linzess 290 mcg daily, I will put her on Reglan to see if that improved her symptoms, but again we have to watch with the drug interaction with her psych medication. I will give her the low-dose. Should follow-up with me and see how it goes... TY * Eli Fu - 12/16/2024 11:15 AM EDT Patient returning call to discuss treatment plan * ROSE Batista - 12/12/2024 4:55 PM EDT Patient is not checking MyChart since last year, please let her know that her gastric emptying study was positive for gastroparesis. However, I cannot put her on Reglan because she is taking olanzapine. Advised to eat more often, small portions throughout the day, avoid greasy, fatty foods. F/u with me. TY :) documented in this encounter Plan of Treatment Upcoming Encounters Date Type Department Care Team (Late st Contact Info) Description 01/07/2025 1:00 PM EST Office Visit Gastroenterology - [place] 299 [facility] [address] [place] [phone] Tiffany Sheppard PA 299 [facility] [address] [place] [address] 02/10/2025 2:30 PM EST Office Visit Adult Medicine [address] [phone] Maura Gupta PA [address] [place], [place] documented as of this encounter Visit Diagnoses Not on filedocumented in this encounter Additional Health Concerns Assessment Noted Time PHQ-9 Depression Total Score: 12 024 3:06 PM EST documented as of this encounter Care Teams Security Systems Manager Relationship Specialty Start Date End Date Reny Martinez MD [address] [place] [phone] PCP - General Internal Medicine 01/09/24 documented as of this encounter
--- OUTSIDE RECORDS SUMMARY | 2025-01-06 17:56 | XMS_ITS | Encounter Summary ---
Author Organization [facility] Address [address] [place] [phone] Phone Care Team Providers Care Orthotist Name Role Phone Elizabeth Devries URBAN SOCIOLOGIST Primary Care Provider Un available Encounter Details Date Type Department Care Team (Late st Contact Info) Description 11/29/2009 Documentation [facility] [address] [place], [place] [phone] Family Medicine, Physician [address] [place] [address] Social History Tobacco Use Types Packs/Day Years [...] on filedocumented in this encounter Care Teams Orthotist Relationship Specialty Start Date End Date Elizabeth Devries NP PCP - General 10/12/16 documented as of this encounter
--- OUTSIDE RECORDS SUMMARY | 2025-01-06 17:56 | XMS_ITS | Encounter Summary ---
Author Organization [facility] Address [address] [place] [address] Phone Care Team Providers Care Accreditation Manager Name Role Phone Elizabeth Devries NEUROSURGERY SPINE PHYSICIAN Primary Care Provider Un available Encounter Details Date Type Department Care Team (Late st Contact Info) Description 02/09/2011 Documentation [facility] [address] [place], [place] [phone] Family Medicine, Physician [address] [place] [address] Social History Tobacco Use Types Packs/Day Years [...] on filedocumented in this encounter Care Teams Accreditation Manager Relationship Specialty Start Date End Date Elizabeth Devries NP PCP - General 10/12/16 documented as of this encounter
== END 2025-01-06 15:27 | disposition home or self-care (01) ==
LOC: HO.HOS 14:48
DX: S52.501A Unspecified fracture of the lower end of right radius, initial encounter for closed fracture (principal); M25.531 Pain in right wrist
CPT/HCPCS: 99213

== ENCOUNTER 2025-01-07 14:55 | Emergency (ER) | payer OTHER, SELFPAY ==
--- OUTSIDE RECORDS SUMMARY | 2023-12-17 06:56 | XMS_ITS | Encounter Summary ---
Author Organization [facility] Address [address] [place] [address] Care Team Providers Care Educational Assistant Teacher Name Role Phone Reny Martinez MD Primary Care Provider [phone] Encounter Details Date Type Department Care Team (Latest Contact Info) Description 12/17/2023 7:56 AM EDT Hospital Encounter TH HISTORIC ENCOUNTERS EASTERN CONVERSION ONLY Tiffany Sheppard PA [address] [place] [address] Irritable bowel syndrome with constipation Social History Tobacco Use Types Packs/Day Years Used Date Smoking Tobacco: Former Cigarettes 2 17.8 S tarted: 2007 Smokeless Tobacco: Never Alcohol Use Standard Drinks/Week Comments Not Currently 0 (1 standard drink = 0.6 oz pur e alcohol) sober since Mar 2023 Housing Instability Answer Date Recorde d Are you worried that in the next 2 months you may not have stable housing? No 01/27/2024 Food Access & Nutrition Answer Date Rec orded Do you have access to a vari ety of food including fruits and vegetables? Yes 01/27/2024 Access to Healthcare Answer Date Record ed Within the last 3 months, ho w many times did you visit the emergency department for your medical care? 3 01/27/2024 Health Literacy Answer Date Recorded How often do you need to hav e someone help you when you read instructions, pamphlets, or other written material from your doctor or pharmacy? Rarely 01/27/2024 Caregiver: How often do you need to have someone help you when you read instructions, pamphlets, or other written material from your doctor or pharmacy? Not on file 01/27/2024 Financial Risk Answer Date Recorded How hard is it for you to pa y for the very basics like food, housing, medical care, and air conditioning / heating? Somewhat hard 01/27/2024 Transportation Answer Date Recorded Has the lack of transportati on kept you from meetings, work, or from getting things needed for daily living? No Has the lack of transportati on kept you from medical appointments or from getting medications? No 01/27/2024 Social Isolation Answer Date Recorded How often do you feel lonely or isolated from th ose around you? Often 01/27/2024 Food Risk Answer Date Recorded Within the past 12 months we worried whether our food would run out before we got money to buy more. Never true 01/27/2024 Within the past 12 months th e food we bought just didn't last and we didn't have money to get more. Never true 01/27/2024 Dependent Care Answer Date Recorded Do you need help finding or paying for care for your loved ones. For example, child abuse worker or elderly care for an older adult? No 01/27/2024 Education Answer Date Recorded Do you think completing more education or training, like finishing a GED, going to college, or learning a trade, would be helpful for you? Yes 01/27/2024 Employment and Income Answer Date Recor ded During the last four weeks, have you been actively looking for work? No 01/27/2024 Living Situation Answer Date Recorded What is your living situation? Unrecognized valu e 01/27/2024 Comments No Sex and Gender Information Value Date Recorded Sex Assigned at Female 01/14/2024 9:34 AM EST Legal Sex Female 8:11 PM EDT Gender Identity Female 01/14/2024 9:34 AM EST Sexual Orientation Bisexual 01/14/2024 9: 34 AM EST documented as of this encounter Plan of Treatment Upcoming Encounters Date Type Department Care Team (Late st Contact Info) Description 02/10/2025 2:30 PM EST Office Visit Adult Medicine [address] [address] Maura Gupta PA [address] [place] [address] 08/23/2025 1:00 PM EDT Office Visit Gastroenterology - [address] [facility] [address] [place] [phone] Tiffany Sheppard PA 299 [facility] [address] [place] [address] documented as of this encounter Procedures Procedure Name Priority Date/Time Associated Diagnosis Comments CR UGI W AIR ROUTINE Routine 12/17/2023 11:54 AM EDT Irritable bowel syndrome with constipation documented in this encounter Results * CR UGI W AIR ROUTINE (12/17/2023 11:54 AM EDT) Anatomical Region Laterality Modality Radiographic Tonia ging 12/17/2023 8:04 AM EDT Narrative 12/17/2023 11:54 AM EDT [facility] Diagnostic Imaging Department [address] [place] [address] Patient: ARELIS RIDDLE /Age/Sex: 1995 - 28 - F Unit#: [id number] Location/Status: [facility]/REG CLI Mnemonic/Ordering Site: [facility] Ordering Physician: TIFFANY SHEPPARD CR UGI W Air Routine - 12/17/23 - 0848 Report Status:Signed HISTORY: Patient is a 28-year-old female with history of pelvic congestion, irritable bowel syndrome, constipation. COMPARISON: CT abdomen and pelvis July 28, 2022 FINDINGS: MARKET SPECIALIST radiographs: Security Officers And Guards AP radiograph of the abdomen obtained. Bowel gas pattern is nonobstructive. Visualized lung bases appear clear. There is slight S-shaped scoliosis. There are multiple embolization coils noted within the pelvis and mid to lower abdomen, consistent with history of treatment for pelvic congestion syndrome. Effervescent crystals were administered orally. Thick and thin barium was then administered orally under fluoroscopic control. Esophagus: Normal distensibility, motility and mucosal pattern. There is no evidence of obstruction. There is a very small, sliding hiatal hernia. Stomach: Normal distensibility. Possible minimal gastric debris remaining within the stomach despite patient confirming nothing by mouth since greater than 12 hours prior. No gastric mass or ulceration visualized. Passage of contrast from the stomach into the duodenal bulb and sweep is within normal limits. Visualized portions of proximal small bowel are within normal limits. Gastroesophageal reflux: Small amount of gastroesophageal reflux visualized IMPRESSION: 1. Very small, sliding hiatal hernia with mild gastroesophageal reflux. 2. Possible minimal gastric debris, suggesting delayed gastric emptying. DAP: 14.95 Gycm^2 Exam performed and dictated by: Phyllis Corbett PA-C Supervising physician: Desiree Alexandre MD Dictating Physician: DESIREE ALEXANDRE MD Electronically Signed by: DESIREE ALEXANDRE MD Dic Date/Time: 12/17/23928 Sign date/Time: 12/17/23 1151 Procedure Note Desiree Alexandre MD - 12/31/2023 [facility] Diagnostic Imaging Department [address] [place] [address] Patient: RIDDLEARELIS./Age/Sex: 1995 - F Unit#: [id number] Location/Status: [facility]/REG CLI Mnemonic/Ordering Site: [facility] Ordering Physician: TIFFANY SHEPPARD CR UGI W Air Routine - 12/17/23 - 0848 Report Status:Signed HISTORY: Patient is a 28-year-old female with history of pelviccongestion, irritable bowel syndrome, constipation. COMPARISON: CT abdomen and pelvis July 28, 2022 FINDINGS: MARKET SPECIALIST radiographs: Security Officers And Guards AP radiograph of the abdomen obtained. Bowelgas pattern is nonobstructive. Visualized lung bases appear clear. There isslight S-shaped scoliosis. There are multiple embolization coils noted withinthe pelvis and mid to lower abdomen, consistent with history of treatment forpelvic congestion syndrome. Effervescent crystals were administered orally. Thick and thin barium wasthen administered orally under fluoroscopic control. Esophagus: Normal distensibility, motility and mucosal pattern. There isno evidence of obstruction. There is a very small, sliding hiatal hernia. Stomach: Normal distensibility. Possible minimal gastric debrisremaining within the stomach despite patient confirming nothing by mouth sincegreater than 12 hours prior. No gastric mass or ulceration visualized. Passageof contrast from the stomach into the duodenal bulb and sweep is withinnormal limits. Visualized portions of proximal small bowel are within normallimits. Gastroesophageal reflux: Small amount of gastroesophageal refluxvisualized IMPRESSION: 1. Very small, sliding hiatal hernia with mild gastroesophageal reflux. 2. Possible minimal gastric debris, suggesting delayed gastric emptying. DAP: 14.95 Gycm^2 Exam performed and dictated by: Phyllis Corbett PA-C Supervising physician: Desiree Alexandre MD Dictating Physician: DESIREE ALEXANDRE MD Electronically Signed by: DESIREE ALEXANDRE MD Dic Date/Time: 12/17/23 0978 Sign date/Time: 12/17/23 1158 Tiffany ROSE IMG XR PROCEDURES Final Resul t documented in this encounter Visit Diagnoses Diagnosis Irritable bowel syndrome with constipation Irritable bowel syndrome documented in this encounter Care Teams Educational Assistant Teacher Relationship Specialty Start Date End Date Reny Martinez MD PCP - General Internal Medicine 12/04/21 01/08/24 documented as of this encounter
--- NOTE | ~2025-01-07 | XR_ITS ---
EXAMINATION: XR CHEST 2 VIEWS HISTORY: SOB COMPARISON: Comparison is made with the prior examination dated 09/11/2024. FINDINGS: PA and lateral views of the chest are submitted. The lungs are expanded and clear. There is no pleural effusion, pneumothorax, or pulmonary vascular congestion. The heart is normal in size. There is dextro scoliosis of the spine. XR/XR chest 2V IMPRESSION: No acute cardiopulmonary abnormality. Electronically signed by: Jake Tolentino MD 01/07/2025 03:20 PM [place]
--- OUTSIDE RECORDS SUMMARY | 2025-01-07 13:00 | XMS_ITS | Encounter Summary ---
Author Organization Address [address] [place] [address] Care Team Providers Care High Voltage Electrician Name Role Phone Reny Martinez MD Primary Care Provider [phone] Reason for Visit * Reason Comments Irritable Bowel Syndrome Encounter Details Date Type Department Care Team (Latest Contact Info) Description 01/07/2025 1:00 PM EST Office Visit Gastroenterology - 299 [facility] [address] [phone] Tiffany Sheppard PA 299 [facility] [address] [place] [address] Gastroparesis (Primary Dx); Early satiety; Abdominal bloating Social History Tobacco Use Types Packs/Day Years [...] your loved ones. For example, early childhood educator aide or elderly care for an older [...] AM EST documented as of this encounter Last Filed Vital Signs Vital Sign Reading Time Taken Comments Blood Pressure 98/64 01/07/2025 1:09 PM EST Pulse 105 01/07/2025 1:09 PM EST Temperature - - Respiratory Rate - - Oxygen Saturation 98% 01/07/2025 1:09 PM EST Inhaled Oxygen Concentration - - Weight 50.8 kg (112 lb) 01/07/2025 1:09 PM EST Height 157.5 cm (5' 2 ) 01/07/2025 1:09 PM EST Body Mass Index 20.49 01/07/2025 1:09 PM EST documented in this encounter Ordered Prescriptions Prescription Sig Dispense Quantity Refills Last Filled Start Date End Date metoclopramide (REGLAN) 5 mg tablet Take 1 tablet (5 mg total) by mouth 2 (two) times a day before meals. 60 each 3 01/07/2025 01/07/2026 documented in this encounter Progress Notes * ROSE Batista - 01/07/2025 1:00 PM EST CHIEF COMPLAINT: Chief Complaint Patient presents with Irritable Bowel Syndrome IDENTIFIER: Arelis Butler is a 29 y.o. old female History of Present Illness The patient is a 29-year-old female who presents for evaluation of gastroparesis. She is accompanied by her mother. Patient gastric emptying study confirmed gastroparesis. Symptoms include pain, bloating, and nausea. Her appetite has been significantly reduced, leading to a decreased frequency of meals, often onlythree times a day. She has not started the new medication Reglan regimen due to apprehension and lack of understanding. Currently, she is using Trulance for constipation management. She has a known history of dystonic reactions and has been on olanzapine, which resulted in significant weight gain. Despite discontinuing and then resuming olanzapine, she did not experience furtherweight gain. ROS: GENERAL: No malaise, significant weight loss or fever HEENT: No changes in hearing or vision, nose bleeds or other nasal problems NECK: No lumps, goiter, pain or significant neck swelling RESPIRATORY: No cough, wheezing or shortness of breath CARDIOVASCULAR: No chest pain, leg swelling or palpitations GI: See HPI. MUSCULOSKELETAL: No joint pain or swelling, back pain, or muscle pain. SKIN: No lesions, rash or itching NEURO: No persistent headache, syncope, seizures, weakness or numbness PAST MEDICAL HISTORY: Medical History[1] Surgical History[2] SOCIAL HISTORY: Social History Tobacco Use Smoking status: Former Current packs/day: 2.00 Average packs/day: 2.0 packs/day for 17.8 years (35.7 ttl pk-yrs) Types: Cigarettes Start date: 2007 Smokeless tobacco: Never Substance Use Topics Alcohol use: Not Currently Comment: sober since Mar 2023 FAMILY HISTORY: Family History[3] MEDICATIONS DISCONTINUED/REORDERED: Medications Discontinued During This Encounter Medication Reason metoclopramide (REGLAN) 5 mg tablet Reorder ACTIVE MEDICATIONS: Current Medications[4] ALLERGIES: Current Allergies[5] PHYSICAL EXAM: Visit Vitals BP 98/64 (BP Location: Left arm, Patient Position: Sitting, BP Cuff Size: Adult) Pulse 105 Ht 1.575 m (62 ) Wt 50.8 kg (112 lb) SpO2 98% BMI 20.49 kg/m?? OB Status Having periods Smoking Status Former BSA 1.49 m?? APPEARANCE: Alert and in no acute distress NEURO: Awake, alert and oriented x 3 with symmetrical reflexes Physical Exam IMAGING: Narrative & Impression HISTORY: Early satiety. Question disordered gastric emptying. [...] hours IMPRESSION: Delayed solid material gastric emptying. Telefalguni ROSE ([id number]) -------- FINAL REPORT -------- Dictated By: Desiree Alexandre Dictated Date: 12/02/2024 12:13 ET Assigned Physician: Desiree Alexandre Reviewed and Electronically Signed By: Desiree Alexandre Signed Date: 12/02/2024 12:14 ET Workstation ID: [id number] Transcribed By: Self Edit Transcribed Date: 12/02/2024 12:13 ET IMPRESSION: 1. Gastroparesis (Primary) 2. Early satiety 3. Abdominal bloating PLAN: Pleasant 29 years old female with a history of chronic abdomen pain, female pelvic congestion syndrome, vaginal burning, cutaneous candidiasis, anxiety and depression, history of substance abuse, lowback pain, ganglion cyst of left wrist, metacarpal bone fracture, pulmonary nodule, whose recent gastric emptying study showed gastroparesis. Assessment & Plan 1. Gastroparesis/abdominal pain/early satiety/bloating: -Will discuss the dietary changes, we will put patient on the Reglan only 5 mg twice daily before meals - Potential side effects of Reglan, including twitching of the eye or lip, tremors, and exacerbation of dystonic reactions, were discussed. - Discontinue Reglan immediately if any side effects occur. - Contact the office if no improvement in symptoms within 2 weeks. 2. IBS/constipation: -stable on Trulance ROV- 6 mo. Total time of today's encounter is 34 minutes in preparing to see the patient, reviewing labs, diagnostic studies as well as other provider notes, documenting and charting, creating an HPI, performing a medically appropriate exam as well as counseling patient. There was documentation in EMR after visit. None of which time was spend performing separately billable procedures or ancillary services. I have obtained verbal consent from Arelis Butler prior to the recording. I have advised Arelis Butler that she may refuse the recording and require the recording to be turned off at any time during this encounter. Robbi BatistaS Gastroenterology [facility] [address] [place] [address] [1] Past Medical History: Diagnosis Date Anxiety and depression DX:Anxiety and depression; COMMENT: in [place]; [facility]; every 3 months Elevated liver enzymes DX:Elevated liver enzymes; COMMENT: improved, was admitted to [facility] Endometriosis DX:Endometriosis Female pelvic congestion syndrome 04/12/2022 DX:Female pelvic congestion syndrome; COMMENT: Noted on 04/04/2022 sono- offered contraception for management Metacarpal bone fracture 06/16/2019 DX:Metacarpal bone fracture; COMMENT: 03/23 closed displaced right fifth metacarpal bone Scoliosis DX:Scoliosis [2] Past Surgical History: Procedure Laterality Date FOOT SURGERY 2017 PROCEDURE: HISTORICAL FOOT SURGERY OTHER SURGICAL HISTORY N/A PROCEDURE: NM UNLISTED LAPROSCOPY PROCEDURE SPERMATIC CORD OTHER SURGICAL HISTORY 07/18/2022 PROCEDURE: HISTORY OTHER; COMMENT: Laparoscopic surgery for endometriosis UPPER GASTROINTESTINAL ENDOSCOPY 08/03/2015 PROCEDURE: NM UPPER GI ENDOSCOPY PERFORMED; COMMENT: Visually normal on PPI treatment. [3] Family History Problem Relation Name Age of Onset Prostate cancer Maternal Grandfather 76 Colon cancer Other 60 - 69 Greatgrand ma Maternal Breast cancer Neg Hx Ovarian cancer Neg Hx Uterine cancer Neg Hx Heart attack Neg Hx Stroke Neg Hx Diabetes Neg Hx Cancer of Small Bowel Neg Hx Kidney cancer Neg Hx [4] Current Outpatient Medications Medication Sig Dispense Refill acetaminophen (TYLENOL) 500 mg tablet Take 1 Tablet by mouth every 6 hours as needed (for pain)., albuterol HFA (PROAIR HFA ; PROVENTIL HFA ; VENTOLIN HFA) 90 mcg/actuation inhaler Inhale 2 Puffs into the lungs every 6 hours as needed for Cough, Wheezing or Shortness of Breath for up to 30 days., azelaic acid (FINACEA) 15 % gel calcium citrate (CALCITRATE) 950 mg (200 mg elemental calcium) tablet Take 1 tablet (950 mg total) by mouth 1 (one) time each day. 90 tablet 0 cholecalciferol (VITAMIN D-3) 25 mcg (1,000 unit) tablet TAKE 1 TABLET BY MOUTH EVERY DAY 90 tablet0 clonazePAM (KlonoPIN) 0.5 mg tablet Take 1 tablet (0.5 mg total) by mouth 2 (two) times a day. clonazePAM (KlonoPIN) 1 mg tablet Take 1 Tablet by mouth daily. Along with 0.5mg bid, cloNIDine (CATAPRES) 0.1 mg tablet DIPHENHYDRAMINE HCL ORAL Take 25 mg by mouth if needed. famotidine (PEPCID) 40 mg tablet Take 1 tablet (40 mg total) by mouth 2 (two) times a day. 180 tablet 3 hydrOXYzine pamoate (VISTARIL) 25 mg capsule Take 1 capsule (25 mg total) by mouth 1 (one) time each day. ibuprofen (ADVIL,MOTRIN) 600 mg tablet Take 1 Tablet by mouth every 8 hours as needed (chest wall pain). Take with food, Disp-30 Tablet, methylphenidate (RITALIN) 10 mg tablet Take 1 tablet (10 mg total) by mouth 2 (two) times a day. methylphenidate (Ritalin) 10 mg tablet Take 1.5 Tablets by mouth every morning metoclopramide (REGLAN) 5 mg tablet Take 1 tablet (5 mg total) by mouth 2 (two) times a day before meals. 60 each 3 nicotine polacrilex (NICORETTE) 4 mg gum Take 1 each (4 mg total) by mouth if needed. OLANZapine (ZyPREXA) 5 mg tablet Take 1.5 tablets (7.5 mg total) by mouth at bedtime. polyethylene glycol (MIRALAX) 17 gram packet TAKE 17 GRAMS (MIXED IN LIQUID) BY MOUTH ONCE EVERY DAY 30 packet 2 spironolactone (ALDACTONE) 100 mg tablet Take 1 tablet (100 mg total) by mouth 1 (one) time each day. tretinoin (RETIN-A) 0.025 % cream linaCLOtide (LINZESS) 290 mcg capsule Take 1 capsule (290 mcg total) by mouth 1 (one) time each day. 30 capsule 1 mupirocin (BACTROBAN) 2 % ointment (Patient not taking: Reported on 09/30/2024) [id number]-KL-[id number] (Vicks DayQuil Cold-Flu Relief) 5-10-325 mg/15 mL liquid Take 15 mg by mouth 3 times daily as needed for Other (Patient not taking: Reported on 01/07/2025) plecanatide (Trulance) 3 mg tablet Take 1 tablet (3 mg total) by mouth 1 (one) time each day. 30 tablet 3 PNV Comb 13/Iron Cb/FA/DSS/DHA ( 91-UUVA-CO-DSS-DHA ORAL) Take 1 tablet by mouth 1 (one) time each day. (Patient not taking: Reported on 01/07/2025) No current facility-administered medications for this visit. [5] Allergies Allergen Reactions Haloperidol Numbness, Other and Palpitations Aripiprazole Fluphenazine Other Seasonal Allergies Pollen Extracts Propanediol documented in this encounter Plan of Treatment Upcoming Encounters Date Type Department Care Team (Late st Contact Info) Description 02/10/2025 2:30 PM EST Office Visit Adult Medicine [address] [phone] Maura Gupta PA [address] [place] [id number] 08/23/2025 1:00 PM EDT Office Visit Gastroenterology - [address] [phone] Tiffany Sheppard PA [address] [place] [address] documented as of this encounter Visit Diagnoses Diagnosis Gastroparesis- Primary Early satiety Abdominal bloating Flatulence, eructation, and gas pain documented in this encounter Discontinued Medications Medication Sig Discontinue Reason Start Date End Da te metoclopramide (REGLAN) 5 mg tablet Take 1 tablet (5 mg total) by mouth 3 (three) times a day before meals. Reorder 12/16/2024 01/07/2025 documented as of this encounter Additional Health Concerns Assessment Noted Time PHQ-9 Depression Total Score: 12 024 3:06 PM EST documented as of this encounter Care Teams High Voltage Electrician Relationship Specialty Start Date End Date Reny Martinez MD [address] [place] [phone] PCP - General Internal Medicine 01/09/24 documented as of this encounter
[2025-01-07 15:02] VITALS: BP 140/65; PULSE 112; RESP 18; TEMP 36.3; O2SAT 96; BMI 21.2
--- NOTE | 2025-01-07 15:03 | ED.GENADULT ---
HPI - General Adult General Chief complaint: Upper Respiratory Symptoms Stated complaint: sore throat, SOB Time Seen by Provider: 01/07/25 17:44 Source: patient Mode of arrival: ambulatory Limitations: no limitations History of Present Illness ED Provider: Dr. Calix Related Data Home Medications ?Medication ?Instructions ?Recorded ?Confirmed calcium citrate 200 mg PO DAILY 05/18/21 06/12/24 cholecalciferol (vitamin D3) 25 1 tab PO DAILY 05/18/21 06/12/24 mcg (1,000 unit) tablet clonazepam 0.5 mg tablet 0.5 mg PO DAILY 06/12/24 06/12/24 clonazepam 0.5 mg tablet (Klonopin) 0.5 mg PO QPM 06/12/24 06/12/24 clonazepam 1 mg tablet 1 mg PO BID 06/12/24 06/12/24 diphenhydramine HCl 25 mg capsule 25 - 50 mg PO BID PRN Anxiety 06/12/24 06/12/24 (Banophen) famotidine 40 mg tablet 40 mg PO BID 06/12/24 06/12/24 hydroxyzine pamoate 25 mg capsule 25 mg PO BID PRN Anxiety 06/12/24 06/12/24 hydroxyzine pamoate 25 mg capsule 50 mg PO BEDTIME 06/12/24 06/12/24 methylphenidate HCl 5 mg tablet 10 mg PO DAILY 06/12/24 06/12/24 methylphenidate HCl 5 mg tablet See Rx Instructions .Route .COMPLEX 06/12/24 06/12/24 olanzapine 5 mg tablet 5 mg PO BEDTIME 06/12/24 06/12/24 methylphenidate HCl 10 mg tablet 10 mg PO TID 10/30/24 Previous Rx's ?Medication ?Instructions ?Recorded clonidine HCl 0.1 mg tablet See Rx Instructions .Route 05/26/21 .COMPLEX 30 days #120 tabs spironolactone 100 mg tablet 100 mg PO BID 30 days #60 tabs 05/26/21 ibuprofen 600 mg tablet 600 mg PO Q6H PRN pain #20 tabs 09/11/24 amoxicillin 500 mg capsule 500 mg PO Q12H 10 days #20 caps 01/07/25 cetirizine 5 mg tablet 5 mg PO DAILY PRN allergy symptoms 01/07/25 #20 tabs fluticasone propionate 50 1 spray intranasal Q12H #16 grams 01/07/25 mcg/actuation nasal spray,suspension (Flonase Allergy Relief) Allergies Allergy/AdvReac Type Severity Reaction Status Date / Time aripiprazole (From Abilify) Allergy Severe Unknown Verified 01/07/25 15:02 haloperidol (From Haldol) Allergy Severe Confusion Verified 01/07/25 15:02 propranolol Allergy Severe Unknown Verified 01/07/25 15:02 fluphenazine (From Prolixin) AdvReac Severe dystonia Verified 01/07/25 15:02 halobetasol AdvReac Intermediate Unknown Verified 01/07/25 15:02 SEASONAL ALLERGIES Allergy Mild STUFFY Uncoded 01/07/25 15:02 NOSE, HEADACHES propanolol AdvReac Intermediate Unknown Uncoded 01/07/25 15:02 PMFSH Past Medical History Medical History Anxiety Depressed Psychosis History of ADHD PTSD (post-traumatic stress disorder) Depression Medical clearance for psychiatric admission Pelvic congestion syndrome Surgical History H/O foot surgery Family History Family History Mother HIV disease Mother AIDS Social History Social History Household Members: Family and None Housing: Apartment Do you presently have visiting nurse or other home services: No Patient Tobacco Use Status: Former Tobacco user Tobacco use type: Pipe e-Cigarette/Vaping Use: Never Used Second Hand Smoke Exposure: No Substance Use Type: Heroin, Marijuana and Caffiene Advance Directives: No Advance Directives Information Provided: No Do you have a plan to hurt others: No Plan service: No 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al status: disabled 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 Sexual orientation: Don't Know Physical Exam ED Vital Signs: Vital Signs - 24 hr 01/07/25 15:02 01/07/25 17:24 01/07/25 19:24 Temperature 97.3 F 98.3 F 98.5 F Pulse Rate 112 H 86 84 Respiratory Rate 18 16 14 Blood Pressure 140/65 H 127/75 107/56 L Pulse Oximetry 96 99 100 Oxygen Delivery Method Room Air Room Air Room Air 01/07/25 19:25 Temperature Pulse Rate Respiratory Rate Blood Pressure Pulse Oximetry 96 Oxygen Delivery Method Room Air BMI result Body Mass Index 21.2 Course Course Course Narrative: Rapid medical examination performed in triage by Vicki Marino PA-C: Patient is a 29 year old assigned female at presenting to the emergency department with a sore throat, ear pain, and shortness of breath. Patient states that she was diagnosed with strep over a month ago, finished the antibiotics, and the symptoms persist. Detailed physical exam and review of systems are deferred to the sand control worker. EKG, labs, imaging, and swabs ordered. Patient placed back in the waiting room pending room availability and results. Medical Decision Making Lab Data 01/07/25 15:29 01/07/25 15:29 Labs: Lab Results 01/07/25 Range/Units 15:29 WBC 8.0 (4.8-10.8) X10*3/uL RBC 4.23 (4.20-5.50) X10*6/uL Hgb 12.8 (12.0-16.0) g/dl Hct 38.0 (37.0-47.0) % MCV 89.8 (80.0-98.0) fL MCH 30.3 (27.0-33.0) pg MCHC 33.7 (31.0-35.0) g/dl RDW 12.6 (11.0-16.0) % Plt Count 243 D (160-400) X10*3/uL MPV 9.7 (9.4-12.3) fL Immature Gran % (Auto) 0.4 (0.0-0.4) % Neut % (Auto) 71.6 (45-73) % Lymph % (Auto) 21.7 (20-40) % Stephens % (Auto) 5.7 (2-11) % Eos % (Auto) 0.2 (0-4) % Baso % (Auto) 0.4 (0-2) % Lymph # (Auto) 1.7 (1.2-4.9) X10*3/uL Stephens # (Auto) 0.5 (0.1-1.2) X10*3/uL Eos # (Auto) 0.0 (0.0-0.4) X10*3/uL Baso # (Auto) 0.0 (0.0-0.2) X10*3/uL Abs Immat Gran (auto) 0.03 (0.00-0.03) X10*3/uL Absolute Neuts (auto) 5.7 (2.0-8.3) x10*3/uL Absolute Nucleated RBC 0.000 (0.0-0.012) X10*3/uL Nucleated RBC % (auto) 0.0 (0.0-0.2) /100WBC Sodium 140 (135-145) mmol/L Potassium 4.1 (3.3-5.1) mmol/L Chloride 104 (96-108) mmol/L Carbon Dioxide 27 (22-29) mmol/L Anion Gap 13 (12-20) BUN 11 (9-16) mg/dL Creatinine 0.66 (0.5-1.4) mg/dL Estim Creat Clear Calc 98.5 Estimated GFR > 60 Random Glucose 94 (60-115) mg/dL Calcium 9.5 (8.4-10.2) mg/dL Magnesium 2.0 (1.6-2.6) mg/dL Total Bilirubin 0.5 (0.0-1.0) mg/dL AST 19 (5-31) U/L ALT 11 (0-31) U/L Alkaline Phosphatase 66 (39-117) U/L Troponin I High Sens < 2.7 (<3.5-17.0) ng/L Total Protein 7.3 (6.5-8.0) g/dL Albumin 4.7 (3.5-5.0) g/dL Beta HCG, Quant < 2 mIU/mL COVID-19 (ROBE) Negative (Negative) COVID-19 Clin Com See Note Influenza Type A (ROBERTO) Negative (Negative) Influenza Type B (ROBERTO) Negative (Negative) Influenza A & B Note See Note S. pyogenes GrpA ROBERTO Negative (Negative) Discharge Plan Discharge Clinical Impression: Pharyngitis Qualifiers: Pharyngitis/tonsillitis etiology: unspecified etiology Qualified Code(s): J02.9 - Acute pharyngitis, unspecified Patient Disposition: Home, Self-Care Instructions: Pharyngitis (ED) Prescriptions: New amoxicillin 500 mg capsule 500 mg PO Q12H 10 Days Qty: 20 0RF cetirizine 5 mg tablet 5 mg PO DAILY PRN (Reason: allergy symptoms) Qty: 20 0RF fluticasone propionate [Flonase Allergy Relief] 50 mcg/actuation spray,suspension 1 spray intranasal Q12H Qty: 16 0RF Rx Instructions: administer into each nostril No Action calcium citrate 200 mg (950 mg) Tablet 200 mg PO DAILY cholecalciferol (vitamin D3) 25 mcg (1,000 unit) tablet 1 tab PO DAILY clonidine HCl 0.1 mg tablet See Rx Instructions .ROUTE .COMPLEX 30 Days Qty: 120 0RF Rx Instructions: take 1 tablet daily and take 3 tablets at bedtime spironolactone 100 mg tablet 100 mg PO BID 30 Days Qty: 60 0RF methylphenidate HCl 5 mg tablet See Rx Instructions .ROUTE .COMPLEX Rx Instructions: 15 mg orally twice daily at 0800am and 1200pm. clonazepam 1 mg tablet 1 mg PO BID diphenhydramine HCl [Banophen] 25 mg capsule 25 - 50 mg PO BID PRN (Reason: Anxiety) famotidine 40 mg tablet 40 mg PO BID methylphenidate HCl 5 mg tablet 10 mg PO DAILY Rx Instructions: daily at 1400h clonazepam 0.5 mg tablet 0.5 mg PO DAILY Rx Instructions: at 1400h olanzapine 5 mg tablet 5 mg PO BEDTIME hydroxyzine pamoate 25 mg capsule 50 mg PO BEDTIME hydroxyzine pamoate 25 mg capsule 25 mg PO BID PRN (Reason: Anxiety) Rx Instructions: AM AND NOON clonazepam [Klonopin] 0.5 mg tablet 0.5 mg PO QPM ibuprofen 600 mg tablet 600 mg PO Q6H PRN (Reason: pain) Qty: 20 0RF methylphenidate HCl 10 mg tablet 10 mg PO TID Referrals: [facility] [Provider Group, Ear, Nose, Throat] Referral Note: Pharyngitis for weeks [facility] [Provider Group, Internal Medicine] Print Language: Slovenian
--- NOTE | 2025-01-07 15:05 | ECG_ITS ---
Test Reason : sob Blood Pressure : */* mmHG Vent. Rate : 92 BPM Atrial Rate : 92 BPM P-R Int : 142 ms QRS Dur : 88 ms QT Int : 360 ms P-R-T Axes : 63 83 65 degrees QTcB Int : 445 ms Normal sinus rhythm Normal ECG When compared with ECG of 11-Sep-2024 15:37, No significant change was found Referred By: Vicki Marino Electronically Signed By: Sean Dobbins
[2025-01-07 15:37] LABS: MANUAL DIFF FLAG NO
[2025-01-07 15:39] LABS: Hematocrit 38.0 % (37.0-47.0); Hemoglobin 12.8 g/dl (12.0-16.0); Imm Gran Abs Auto 0.03 X10*3/uL (0.00-0.03); Imm Gran Pct Auto 0.4 % (0.0-0.4); Lymphocytes Absolute Auto 1.7 X10*3/uL (1.2-4.9); Mean Corpuscular HGB Conc 33.7 g/dl (31.0-35.0); Mean Corpuscular Hemoglobin 30.3 pg (27.0-33.0); Mean Corpuscular Volume 89.8 fL (80.0-98.0); NRBC Abs Auto 0.000 X10*3/uL (0.0-0.012); NRBC Pct Auto 0.0 /100WBC (0.0-0.2); Platelet Count 243 X10*3/uL (160-400); Red Blood Count 4.23 X10*6/uL (4.20-5.50); White Blood Count 8.0 X10*3/uL (4.8-10.8)
[2025-01-07 15:51] LABS: IDNOW Serial# 08D9AD1C; Strep A Nucleic Acid Negative (Negative)
[2025-01-07 15:55] LABS: COVID-19 Test Negative (Negative); IDNOW Serial# 55D5AD1C
[2025-01-07 15:57] LABS: IDNOW Serial# 58CA691E; Influenza B2 Negative (Negative)
[2025-01-07 16:07] LABS: Troponin-I High Sensitivity < 2.7 ng/L (<3.5-17.0)
[2025-01-07 16:10] LABS: Alanine Aminotransferase 11 U/L (0-31); Albumin Level 4.7 g/dL (3.5-5.0); Alkaline Phosphatase 66 U/L (39-117); Anion Gap 13 (12-20); Aspartate Amino Transferase 19 U/L (5-31); Blood Urea Nitrogen 11 mg/dL (9-16); Calcium 9.5 mg/dL (8.4-10.2); Carbon Dioxide 27 mmol/L (22-29); Chloride 104 mmol/L (96-108); Creatinine Clr Calc Pharmacy 98.5; Estimated Glomerular Filt Rate > 60; Magnesium 2.0 mg/dL (1.6-2.6); Potassium 4.1 mmol/L (3.3-5.1); Sodium 140 mmol/L (135-145); Total Protein 7.3 g/dL (6.5-8.0)
[2025-01-07 17:24] VITALS: BP 127/75; PULSE 86; RESP 16; TEMP 36.8; O2SAT 99
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
--- OUTSIDE RECORDS SUMMARY | 2025-01-07 18:51 | XMS_ITS | Encounter Summary ---
Author Organization [facility] Address [address] [place] [address] Phone Care Team Providers Care Enrollment Management Vice President Name Role Phone Elizabeth Devries SAND DIGGER Primary Care Provider Un available Encounter Details Date Type Department Care Team (Late st Contact Info) Description 11/29/2009 Documentation [facility] [address] [place], [place] [phone] Family Medicine, Physician [address] [place] [address] Social History Tobacco Use Types Packs/Day Years [...] on filedocumented in this encounter Care Teams Enrollment Management Vice President Relationship Specialty Start Date End Date Elizabeth Devries NP PCP - General 10/12/16 documented as of this encounter
--- OUTSIDE RECORDS SUMMARY | 2025-01-07 18:51 | XMS_ITS | Encounter Summary ---
Author Organization [facility] Address [address] [place] [address] Phone Care Team Providers Care Manager Of Financial Reporting Name Role Phone Elizabeth Devries CONSTRUCTION PROJECT ASSISTANT Primary Care Provider Un available Encounter Details Date Type Department Care Team (Late st Contact Info) Description 02/20/2010 Documentation [facility] [address] [place], [place] [phone] Family Medicine, Physician [address] [place] [address] Social History Tobacco Use Types Packs/Day Years [...] on filedocumented in this encounter Care Teams Manager Of Financial Reporting Relationship Specialty Start Date End Date Elizabeth Devries NP PCP - General 10/12/16 documented as of this encounter
--- OUTSIDE RECORDS SUMMARY | 2025-01-07 18:51 | XMS_ITS | Encounter Summary ---
Author Organization [facility] Address [address] [place] [address] Phone Care Team Providers Care Area Development Consultant Name Role Phone Elizabeth Devries CUSTOMER SERVICE TECHNICIAN Primary Care Provider Un available Encounter Details Date Type Department Care Team (Late st Contact Info) Description 10/18/2016 Conversion Encounter [facility] - [address] [address] Social History Tobacco Use Types Packs/Day Years [...] on filedocumented in this encounter Care Teams Area Development Consultant Relationship Specialty Start Date End Date Elizabeth Devries NP PCP - General 10/12/16 documented as of this encounter
--- OUTSIDE RECORDS SUMMARY | 2025-01-07 18:51 | XMS_ITS | Encounter Summary ---
Author Organization [facility] Address [address] [place] [address] Phone Care Team Providers Care Data Processing Systems Project Planner Name Role Phone Elizabeth Devries SOLDERING MACHINE SETTER Primary Care Provider Un available Encounter Details Date Type Department Care Team (Late st Contact Info) Description 02/09/2011 Documentation [facility] [address] [place], [place] [phone] Family Medicine, Physician [address] [place] [address] Social History Tobacco Use Types Packs/Day Years [...] on filedocumented in this encounter Care Teams Data Processing Systems Project Planner Relationship Specialty Start Date End Date Elizabeth Devries NP PCP - General 10/12/16 documented as of this encounter
--- OUTSIDE RECORDS SUMMARY | 2025-01-07 18:51 | XMS_ITS | Encounter Summary ---
Author Organization [facility] Address [address] [place] [address] Phone Care Team Providers Care Priming Powder Premix Blender Name Role Phone Elizabeth Devries MANAGEMENT LECTURER Primary Care Provider Un available Encounter Details Date Type Department Care Team (Late st Contact Info) Description 05/14/2013 Documentation [facility] [address] [place], [place] [phone] Family Medicine, Physician [address] [place] [address] Social History Tobacco Use Types Packs/Day Years [...] on filedocumented in this encounter Care Teams Priming Powder Premix Blender Relationship Specialty Start Date End Date Elizabeth Devries NP PCP - General 10/12/16 documented as of this encounter
--- OUTSIDE RECORDS SUMMARY | 2025-01-07 18:51 | XMS_ITS | Encounter Summary ---
Author Organization [facility] Address [address] [place] [address] Care Team Providers Care Lehr Cutter Name Role Phone Reny Martinez MD Primary Care Provider [phone] Reason for Visit * Reason Onset Date Comments provider call back 12/12/2024 Encounter Details Date Type Department Care Team ([facility] st Contact Info) Description 12/12/2024 Results Follow-Up Gastroenterology - [place] [address] [facility] [address] [facility] [address] [place] [phone] Tiffany Sheppard PA [address] [place] [address] Social History Tobacco Use Types Packs/Day Years [...] care for your loved ones. For example, vocational childcare teacher or elderly care for an older [...] 2:30 PM EST Office Visit Adult Medicine [address] [address] Maura Gupta PA [address] [place] [phone] 08/23/2025 1:00 PM EDT Office Visit Gastroenterology - [address] [facility] [address] [place] [address] Tiffany Sheppard PA [address] [facility] [address] [facility] [address] [place] [address] documented as of this encounter Visit Diagnoses Not on filedocumented in this encounter Additional Health Concerns Assessment Noted Time PHQ-9 Depression Total Score: 12 024 3:06 PM EST documented as of this encounter Care Teams Lehr Cutter Relationship Specialty Start Date End Date Reny Martinez MD [address] [place] [phone] PCP - General Internal Medicine 01/09/24 documented as of this encounter
--- OUTSIDE RECORDS SUMMARY | 2025-01-07 18:51 | XMS_ITS | Encounter Summary ---
Author Organization [facility] Address [address] [place] [phone] Phone Care Team Providers Care Shell Press Operator Name Role Phone Elizabeth Devries CONSTRUCTION PROJECT ASSISTANT Primary Care Provider Un available Encounter Details Date Type Department Care Team (Late st Contact Info) Description 02/09/2011 Documentation [facility] [address] [place], [place] [phone] Family Medicine, Physician [address] [place] [address] Social History Tobacco Use Types Packs/Day Years [...] on filedocumented in this encounter Care Teams Shell Press Operator Relationship Specialty Start Date End Date Elizabeth Devries NP PCP - General 10/12/16 documented as of this encounter
--- OUTSIDE RECORDS SUMMARY | 2025-01-07 18:51 | XMS_ITS | Clinical Summary ---
Author Organization [facility] Address [address] [place] [phone] Phone Care Team Providers Care Narcotics Agent Name Role Phone Elizabeth Devries NP Primary [...] this topic Procedures * Due to [place] HALO2CLOUD law, this organization might not be sharing sensitive test results. Procedure Name Priority Date/Time Associated Diagnosis Comments CHLAMYDIA AND GONORRHEA, AMPLIFIED Routine 09/22/2014 3:46 PM EDT from Last 3 Months or Most Recently Relevant to Health Maintenance Results * Due to [place] state law, this organization might not be sharing sensitive test results. * Chlamydia and Gonorrhoea, Amplified (09/22/2014 3:46 PM EDT) URINE GC AMP PROBE NEGATIVE [facility] Comment: No Neisseria Gonorrhoeae RNA detected in this patient's sample (REFERENCE RANGE/NORMAL VALUE: NOT DETECTED) NOTE: This test uses hydraulic barker operator-mediated amplification method to detect rRNA from C.Trachomatis [...] without risk of sexual abuse. Consult the [facility] if needed. Contact phone number . Therapeutic failure or success cannot be determined with the Aptima Combo2 assay since nucleic acid may persist following appropriate antimicrobial therapy. The Centers for Disease Control and Prevention (CDC) recommends confirmatory retesting using culture or a different nucleic acid amplification test when positive results occur, if indicated. Testing performed or reported by [facility], a Service of [facility], [address] [place] [address] Td Hadley MD, PhD, Continuous Pickling Line Pickler Helper URINE CHLAMYDIA AMP PROBE NEGATIVE [facility] Comment: No Chlamydia Trachomatis RNA detected in this patient's sample (REFERENCE RANGE/NORMAL VALUE: NOT DETECTED) 09/22/2014 3:46 PM EDT Narrative [facility] - 09/22/2014 3:46 PM EDT URINE CHLAMYDIA GC AMP PROBE us Elizabeth Devries NP LAB MICROBIOLOGY - GENERA L ORDERABLES Final Result [facility] [address] [place] [address], from Last 3 Months or Most Recently Relevant to Health Maintenance Care Teams Narcotics Agent Relationship Specialty Start Date End Date Elizabeth Devries NP PCP - General 10/12/16
[2025-01-07 19:24] VITALS: BP 107/56; PULSE 84; RESP 14; TEMP 36.9; O2SAT 100
[2025-01-07 19:25] VITALS: O2SAT 96
== END 2025-01-07 19:22 | disposition home or self-care (01) ==
PROVIDERS: Physician Assistant Medical; Emergency Provider Student in an Organized Health Care Education/Training Program; PCP Internal Medicine
DX: J02.9 Acute pharyngitis, unspecified (principal); R06.02 Shortness of breath; Z79.899 Other long term (current) drug therapy; Z03.818 Encounter for observation for suspected exposure to other biological agents ruled out
CPT/HCPCS: 71046; 80053; 83735; 84484; 84702; 85025; 87502; 87635; 87651; 93005; 99283; 99284

== ENCOUNTER → 2025-01-07 15:05 | Outpatient (BNV) | payer OTHER, SELFPAY | PROVIDERS: Emergency Provider Student in an Organized Health Care Education/Training Program; PCP Internal Medicine; Visit Provider Internal Medicine Cardiovascular Disease | DX: R06.02 Shortness of breath (principal) | CPT/HCPCS: 93010 ==

== ENCOUNTER → 2025-01-07 15:05 | Outpatient (BNV) | payer OTHER, SELFPAY | PROVIDERS: PCP Internal Medicine; Visit Provider Radiology Diagnostic Radiology | DX: R06.02 Shortness of breath (principal) | CPT/HCPCS: 71046 ==

== ENCOUNTER 2025-02-17 14:16 | Outpatient (AMB) | payer OTHER, SELFPAY ==
--- OUTSIDE RECORDS SUMMARY | 2023-12-17 06:56 | XMS_ITS | Encounter Summary ---
Author Organization [facility] Address [address] [place] [address] Care Team Providers Care Caustic Pump Operator Name Role Phone Reny Martinez MD Primary Care Provider [phone] Encounter Details Date Type Department Care Team (Latest Contact Info) Description 12/17/2023 7:56 AM EDT Hospital Encounter TH HISTORIC ENCOUNTERS EASTERN CONVERSION ONLY Tiffany Sheppard PA [address] [place] [address] Irritable bowel syndrome with constipation Social History Tobacco Use Types Packs/Day Years Used Date Smoking Tobacco: Former Cigarettes 2 18 S tarted: 2007 Smokeless Tobacco: Never Alcohol [...] do you feel lonely or isolated from ose around you? Often 01/27/2024 Food Risk [...] for your loved ones. For example, child & adolescent psychiatrist or elderly care for an older adult? [...] Care Team (Late st Contact Info) Description 08/23/2025 1:00 PM EDT Office Visit Gastroenterology - [address] [facility] [address] [place] [phone] Tiffany Sheppard PA 299 [facility] [address] [place] [address] 02/11/2026 3:00 PM EST Office Visit Adult Medicine [address] [address] Reny Martinez MD 4 [place], [place] documented as of this encounter Procedures Procedure Name Priority Date/Time Associated Diagnosis Comments CR UGI W AIR ROUTINE Routine 12/17/2023 11:54 AM EDT Irritable bowel syndrome with constipation documented in this encounter Results * CR UGI W AIR ROUTINE (12/17/2023 11:54 AM EDT) Anatomical Region Laterality Modality Radiographic Tonia ging 12/17/2023 8:04 AM EDT Narrative 12/17/2023 11:54 AM EDT [facility] Diagnostic Imaging Department [address] [place] [id number] Patient: BENNY RIDDLE /Age/Sex: 1995 - 28 - F Unit#: [id number] Location/Status: [facility]/REG CLI Mnemonic/Ordering Site: [facility] Ordering Physician: TIFFANY SHEPPARD CR UGI W Air Routine - 12/17/23 - 0848 Report Status:Signed HISTORY: Patient is a 28-year-old female with history of pelvic congestion, irritable bowel syndrome, constipation. COMPARISON: CT abdomen and pelvis July 28, 2022 FINDINGS: TRUSS MAKER radiographs: Weather Clerk AP radiograph of the abdomen obtained. Bowel [...] MD Dic Date/Time: 12/17/23928 Sign date/Time: 12/17/23 1157 Procedure Note Desiree Alexandre MD - 12/31/2023 [facility] Diagnostic Imaging Department [address] [place] [address] Patient: RIDDLEBENNY/Age/Sex: 1995 - Unit#: [id number] Location/Status: [facility] CLI Mnemonic/Ordering Site: [facility] Ordering Physician: TIFFANY SHEPPARD CR UGI W Air Routine - 12/17/23 - 0848 Report Status:Signed HISTORY: Patient is a 28-year-old female with history of pelviccongestion, irritable bowel syndrome, constipation. COMPARISON: CT abdomen and pelvis July 28, 2022 FINDINGS: TRUSS MAKER radiographs: Weather Clerk AP radiograph of the abdomen obtained. Bowelgas [...] by: DESIREE ALEXANDRE MD Dic Date/Time: 12/17/23 0929 Sign date/Time: 12/17/23 6044 Tiffany ROSE IMG XR PROCEDURES Final Resul t documented in this encounter Visit Diagnoses Diagnosis Irritable bowel syndrome with constipation Irritable bowel syndrome documented in this encounter Care Teams Caustic Pump Operator Relationship Specialty Start Date End Date Reny Martinez MD PCP - General Internal Medicine 12/04/21 01/08/24 documented as of this encounter
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
[2025-02-17 14:27] VITALS: BMI 21.0
--- OUTSIDE RECORDS SUMMARY | 2025-02-17 19:05 | XMS_ITS | Clinical Summary ---
Author Organization Patient Business Ser [facility] Address [address] [place] [address] Care Team Providers Care Environmental Health Safety Engineer Name Role Phone Reny Martinez MD Primary Care Provider [phone] Allergies Active Allergy Reactions Criticality Noted Date [...] 1 capsule (25 mg total) by mouth 3 (three) times a day. 09/02/19 24 Active clonazePAM (KlonoPIN) 1 mg tablet Take 1 Tablet by mouth daily. Along with 0.5mg bid, Active methylphenidat e (RITALIN) 10 mg tablet Take 1 tablet (10 mg total) by mouth 3 (three) times a day. Active albuterol HFA (PROAIR HFA ; PROVENTIL HFA ; VENTOLIN HFA) 90 mcg/actuation inhaler Inhale 2 Puffs into the lungs every 6 hours as needed for Cough, Wheezing or Shortness of Breath for up to 30 days., 07/03/19 24 Active cloNIDine (CATAPRES) 0.1 mg tablet Take 1 tablet (0.1 mg total) by mouth 3 (three) times a day. 06/06/19 24 Active clonazePAM (KlonoPIN) 0.5 mg tablet Take 1 tablet (0.5 mg total) by mouth 3 (three) times a day. Active DIPHENHYDRAMIN E HCL ORAL Take 25 mg by mouth if needed. Active tretinoin (RETIN-A) 0.025 % cream 07/15/19 24 Active spironolactone (ALDACTONE) 100 mg tablet Take 1 tablet (100 mg total) by mouth 2 (two) times a day. 05/06/19 20 Active azelaic acid (FINACEA) 15 % gel 06/21/19 24 Active OLANZapine (ZyPREXA) 5 mg tablet Take [...] day. 30 tablet 3 10/01/19 25 Active cholecalcifero l (VITAMIN D-3) 25 mcg (1,000 unit) tablet TAKE 1 TABLET BY MOUTH EVERY DAY 90 tablet 01/06/20 25 Active metoclopramide (REGLAN) 5 mg tablet Take 1 tablet (5 mg total) by mouth 2 (two) times a day before meals. 60 each 3 01/08/20 25 026 Active polyethylene glycol (MIRALAX) 17 gram packet Take 17 g by mouth 1 (one) time each day. 30 packet 3 01/14/20 25 026 Active calcium citrate (CALCITRATE) 950 mg (200 mg elemental calcium) tablet Take 1 tablet (950 mg total) by mouth 1 (one) time each day. 90 tablet 1 02/16/20 25 Active phenylephrine- DM-APAP (Vicks DayQuil Cold-Flu Relief) 5-10-325 mg/15 mL liquid Take 15 mg by mouth 3 times daily as needed for Other 09/30/19 24 025 Discontinued(Th erapy completed) PNV Comb 13/Iron Cb/FA/DSS/DHA ( 26-BFOU-WI-DSS -DHA ORAL) Take 1 tablet by mouth 1 (one) time each day. 07/11/19 24 025 Discontinued(Th erapy completed) mupirocin (BACTROBAN) 2 % ointment 05/06/19 24 025 Discontinued(Th erapy completed) nicotine polacrilex (NICORETTE) 4 mg gum Take 1 each (4 mg total) by mouth if needed. 025 Discontinued(Th erapy completed) methylphenidat e (Ritalin) 10 mg tablet Take 1.5 Tablets by mouth every morning Discontinued(Fo rmulary change) calcium citrate (CALCITRATE) 950 mg (200 mg elemental calcium) tablet Take 1 tablet (950 mg total) by mouth 1 (one) time each day. 90 tablet 10/16/19 25 025 Discontinued linaCLOtide (LINZESS) 290 mcg capsule Take 1 capsule (290 mcg total) by mouth 1 (one) time each day. 30 capsule 1 12/17/19 25 025 Discontinued(Co st of medication) Active Problems Problem Noted Date Diagnosed Date Vitamin D deficiency 02/10/2025 Swelling of vagina 02/11/2024 Assessment & Plan [...] Anxiety and depression 12/03/2023 Overview (12/03/2023): in [place]; [facility]; every 3 months Ganglion cyst [...] Patient had chest CT 08/08/2022 at [facility] that showed mild curvature of the thoracic spine, convexity to the right, Schmorl nodes in the right and lower thoracic spine. 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/17/2019 Substance abuse 07/04/2016 Overview (12/03/2023): Admitted to and cocaine use recently at visit on 07/04/16, previously prescribed suboxone [place] [facility] lab from 08/11/2018: (+) for benzo, cociane, opiates, cannabinoid Chronic abdominal pain 08/04/2015 Encounters Date Type Department Care Team Description 02/11/2025 Results Follow-Up Adult Medicine [address] [phone] Maura Gupta PA 02/10/2025 3:00 PM EST Lab Draw Station [address] Vitamin D deficiency; Routine physical examination 02/10/2025 2:30 PM EST Office Visit Adult Medicine [address] [phone] Maura Gupta PA Routine physical examination (Primary Dx); Vitamin D deficiency 01/07/2025 1:00 PM EST Office Visit Gastroenterology - [address] [place] [address] [address] [facility] [address] [place] [phone] Tiffany Sheppard PA Gastroparesis (Primary Dx); Early satiety; Abdominal bloating 12/12/2024 Results Follow-Up Gastroenterology - [place] [address] [facility] [address] [facility] [address] [place] [phone] Tiffany Sheppard PA 12/02/2024 7:39 AM EDT - 12/02/2024 11:59 PM EDT Hospital Encounter [facility] Nuclear Medicine [address] [place] [phone] Abnormal upper gastrointestinal barium series; Irritable bowel syndrome with constipation; Early satiety Discharge Disposition: Home or Self Care from Last 3 Months Immunizations Immunization Administration Dates Next Due DTP 10/22/1995, 5,1994,06/28 DTaP (Infanrix) 6wks to less than 7yo 06/21/1999 DTaP 5 pertussis antigens, D iptheria Tetanus acellular pertussis (Daptacel) 6wks to less than 7yo 06/21/1999 [id number]-[id number]-[id number] (Pentacel) 2mo to less than 5yo 1994,1994,1994 [...] depression DX:Anxiet y and depression; COMMENT: in [place]; [facility]; every 3 months Metacarpal bone fracture 06/16/2019 DX:[place] carpal bone fracture; COMMENT: 03/23 closed displaced right fifth metacarpal bone Endometriosis DX:Endometriosis Elevated liver enzymes DX:Elevat ed liver enzymes; COMMENT: improved, was admitted to [facility] Scoliosis DX:Scoliosis Female pelvic [...] Grandfather Paternal Grandmother Sister Alive 1990; Td cherry Social History Tobacco Use Types Packs/Day Years Used Date Smoking Tobacco: Former Cigarettes 2 18 S tarted: 2007 Smokeless Tobacco: Never Tobacco Cessation:Counseling Given: Not Answered Alcohol Use Standard Drinks/Week Comments Not Currently [...] Sign Reading Time Taken Comments Blood Pressure 116/74 02/10/2025 2:20 PM EST Pulse 84 02/10/2025 2:20 PM EST Temperature 36.4 C (97.6 F) 02/10/2025 2:20 PM EST Respiratory Rate 12 02/10/2025 2:20 PM EST Oxygen Saturation 97% 02/10/2025 2:20 PM EST Inhaled Oxygen Concentration - - Weight 53.5 kg (118 lb) 02/10/2025 2:20 PM EST Height 161.3 cm (5' 3.5 ) 02/10/2025 2:20 PM ES T Body Mass Index 20.57 02/10/2025 2:20 PM EST Plan of Treatment Upcoming Encounters Date Type Department Care Team (Late st Contact Info) Description 08/23/2025 1:00 PM EDT Office Visit Gastroenterology - [address] [facility] [address] [place] [address] Tiffany Sheppard PA 299 [facility] [address] [place] [address] 02/11/2026 3:00 PM EST Office Visit Adult Medicine [facility] [address] [place], [place] [phone] Reny Martinez MD [address] [place], [place] Health Maintenance Due Date Last Done Comments Drug Screen 1994 Non-Opioid Controlled Substance Agreement 1994 Hepatitis A Vaccines (1 of 2 - Risk 2-dose series) 2013 Medicare Annual Wellness Visit 06/16/2021 Depression Screening 03/04/2024 01/27/2024 Social Influencers of Health Screening 01/26/2025 01/27/2024 Cervical Cancer Screening: HPV 02/01/2028 01/31/2023 Cholesterol Screening (Lipid Panel) 02/10/2030 02/10/2025, 01/27/2024, 06/15/2020, Additional history exists DTaP,Tdap,and Td Vaccines (8 - Td or [...] Procedure Name Priority Date/Time Associated Diagnosis Comments CBC WITH AUTO DIFFERENTIAL Routine 02/10/2025 2:58 PM EST Routine physical examination CBC AND DIFFERENTIAL Routine 02/10/2025 2:58 PM EST Routine physical examination COMPREHENSIVE METABOLIC PANEL Routine 02/10/2025 2:58 PM EST Routine physical examination HEMOGLOBIN A1C Routine 02/10/2025 2:58 PM EST Routine physical examination LIPID PANEL WITH REFLEX TO DIRECT LDL Routine 02/10/2025 2:58 PM EST Routine physical examination THYROID STIMULATING HORMONE WITH REFLEX TO FREE T4 AND FREE T3 Routine 02/10/2025 2:58 PM EST Routine physical examination VITAMIN D 25 HYDROXY Routine 02/10/2025 2:58 PM EST Vitamin D deficiency NM GASTRIC EMPTYING STUDY Routine 12/02/2024 12:15 PM EDT Abnormal upper gastrointestinal barium series Irritable bowel syndrome with constipation Early satiety HEPATITIS PANEL, ACUTE WITH REFLEX TO CONFIRMATION Routine 01/27/2024 3:26 PM EST Routine physical examination HM HPV Routine 01/31/2023 from Last 3 Months or Most Recently Relevant to Health Maintenance Results * Thyroid stimulating hormone with reflex to free t4 and free t3 (02/10/2025 2:58 PM EST) TSH 1.44 0.40 - 4.00 mcIU/mL 02/10/2025 7:12 PM EST [facility] Blood Venous blood specimen / Unknown Venipuncture / Unknown 02/10/2025 2:58 PM EST 02/10/2025 2:58 PM EST Maura ROSE LAB BLOOD ORDERABLES Final Res ult [facility] [address] [place] [address], [place] [phone] * (ABNORMAL) Lipid panel with reflex to direct LDL (02/10/2025 2:58 PM EST) Cholesterol 239(H) 0 - 200 mg/dL 02/10/2025 7:22 PM [facility] Triglycerides 87 0 - 150 mg/dL 02/10/2025 7:22 PM [facility] HDL 99 >=40 mg/dL 02/10/2025 7:22 PM [facility] LDL Calculated 123(H) 0 - 100 mg/dL 02/10/2025 7:22 PM [facility] Comment:Estimated LDL is enriqueta culated using the Friedewald equation: Total cholesterol - HDL cholesterol - (Triglycerides/5) VLDL Cholesterol Enriqueta 17.4 mg/dL 02/10/2025 7:22 PM [facility] Non HDL Chol. (LDL+VLDL) 140 <145 mg/dL 02/10/2025 7:22 PM [facility] Chol/HDL Ratio 2.4 0.0 - 4.4 02/10/2025 7:22 PM EST [facility] Blood Venous blood specimen / Unknown Venipuncture / Unknown 02/10/2025 2:58 PM EST 02/10/2025 2:58 PM EST us Maura ROSE LAB BLOOD ORDERABLES Final Res ult [facility] [address] [place] [address], [place] [phone] * (ABNORMAL) CBC auto differential (02/10/2025 2:58 PM EST) WBC 10.5 4.8 - 10.8 K/mcL LAB HEMETOLOGY METHOD 02/10/2025 4:35 PM [facility] RBC 4.20 3.80 - 4.80 M/[facility] LAB HEMETOLOGY METHOD 02/10/2025 4:35 PM [facility] Hemoglobin 13.0 11.5 - 16.0 g/dL LAB HEMETOLOGY METHOD 02/10/2025 4:35 PM [facility] Hematocrit 39.0 35.0 - 47.0 % LAB HEMETOLOGY METHOD 02/10/2025 4:35 PM [facility] MCV 92.2 79.0 - 98.0 FL LAB HEMETOLOGY METHOD 02/10/2025 4:35 PM [facility] MCH 30.7 27.0 - 32.0 pcg LAB HEMETOLOGY METHOD 02/10/2025 4:35 PM [facility] MCHC 33.3 32.0 - 37.0 g/dL LAB HEMETOLOGY METHOD 02/10/2025 4:35 PM [facility] RDW 13.6 11.0 - 15.0 % LAB HEMETOLOGY METHOD 02/10/2025 4:35 PM [facility] Platelets 231 130 - 400 K/mcL LAB HEMETOLOGY METHOD 02/10/2025 4:35 PM [facility] MPV 10.3 7.0 - 11.0 FL LAB HEMETOLOGY METHOD 02/10/2025 4:35 PM [facility] NRBC 0.0 <1.0 % LAB HEMETOLOGY METHOD 02/10/2025 4:35 PM [facility] NRBC Absolute 0.00 <0.10 K/mcL LAB HEMETOLOGY METHOD 02/10/2025 4:35 PM [facility] Neutrophils Relative 75.5 % LAB HEMETOLOGY METHOD 02/10/2025 4:35 PM [facility] Lymphocytes Relative 17.8 % LAB HEMETOLOGY METHOD 02/10/2025 4:35 PM [facility] Monocytes Relative 5.6 % LAB HEMETOLOGY METHOD 02/10/2025 4:35 PM [facility] Eosinophils Relative 0.4 % LAB HEMETOLOGY METHOD 02/10/2025 4:35 PM [facility] Basophils Relative 0.4 % LAB HEMETOLOGY METHOD 02/10/2025 4:35 PM [facility] Immature Granulocytes Relative 0.3 % LAB HEMETOLOGY METHOD 02/10/2025 4:35 PM [facility] Neutrophils Absolute 7.90(H) 1.50 - 7.00 K/mcL LAB HEMETOLOGY METHOD 02/10/2025 4:35 PM [facility] Lymphocytes Absolute 1.86 1.00 - 5.00 K/mcL LAB HEMETOLOGY METHOD 02/10/2025 4:35 PM [facility] Monocytes Absolute 0.58 0.20 - 1.00 K/mcL LAB HEMETOLOGY METHOD 02/10/2025 4:35 PM EST [facility] Eosinophils Absolute 0.04 0.00 - 0.50 K/[facility] HEMETOLOGY METHOD 02/10/2025 4:35 PM EST [facility] Basophils Absolute 0.04 0.00 - 0.20 K/mcL LAB HEMETOLOGY METHOD 02/10/2025 4:35 PM EST [facility] Immature Granulocytes Absolute 0.03 0.00 - 0.03 K/[facility] LAB HEMETOLOGY METHOD 02/10/2025 4:35 PM EST [facility] Blood Venous blood specimen / Unknown Venipuncture / Unknown 02/10/2025 2:58 PM EST 02/10/2025 2:58 PM EST Maura ROSE LAB BLOOD ORDERABLES Final Res ult [facility] [address] [place] [address], [place] [phone] * Vitamin D 25 hydroxy (02/10/2025 2:58 PM EST) Vit D, 25-Hydroxy 35.8 30.0 - 80.0 ng/mL 02/10/2025 7:12 PM EST [facility] Blood Venous blood specimen / Unknown Venipuncture / Unknown 02/10/2025 2:58 PM EST 02/10/2025 2:58 PM EST Maura Gupta [place] LAB BLOOD ORDERABLES Final Res ult [facility] [address] [place] [address], [place] [phone] * Hemoglobin A1c (02/10/2025 2:58 PM EST) Hemoglobin A1C 4.9 <6.5 % LAB CHEMISTRY METHOD 02/11/2025 10:13 PM EST [facility] Mean Bld Glu Estim. 94 mg/dL LAB CHEMISTRY METHOD 02/11/2025 10:13 PM [facility] Blood Venous blood specimen / Unknown Venipuncture / Unknown 02/10/2025 2:58 PM EST 02/10/2025 2:58 PM EST us Maura ROSE LAB BLOOD ORDERABLES Final Res ult [facility] [address] [place] [address], [place] [phone] * (ABNORMAL) Comprehensive metabolic panel (02/10/2025 2:58 PM EST) Sodium 139 133 - 145 mmol/L 02/10/2025 7:17 PM [facility] Potassium 3.5 3.5 - 5.5 mmol/L 02/10/2025 7:17 PM [facility] Chloride 99 96 - 110 mmol/L 02/10/2025 7:17 PM [facility] CO2 30 21 - 32 mmol/L 02/10/2025 7:17 PM [facility] Anion Gap 10 3 - 11 02/10/2025 7:17 PM [facility] Glucose 66(L) 70 - 100 mg/dL 02/10/2025 7:17 PM [facility] BUN 13 5 - 25 mg/dL 02/10/2025 7:17 PM [facility] Creatinine 0.91 0.50 - 1.10 mg/dL 02/10/2025 7:17 PM [facility] eGFR 87 >=60 mL/min/1. 73m2 02/10/2025 7:17 PM [facility] Comment:Calculation based on the Chronic Kidney Disease Epidemiology Collaboration (CKD-EPI) equation refit without adjustment for race. BUN/Creatinine Ratio 14.3 02/10/2025 7:17 PM [facility] Calcium 9.7 8.5 - 10.5 mg/dL 02/10/2025 7:17 PM [facility] AST (SGOT) 20 10 - 42 unit/L 02/10/2025 7:17 PM [facility] ALT (SGPT) 14 10 - 60 unit/L 02/10/2025 7:17 PM [facility] Alkaline Phosphatase 81 42 - 121 unit/L 02/10/2025 7:17 PM [facility] Total Protein 7.6 6.0 - 8.0 g/dL 02/10/2025 7:17 PM [facility] Albumin 4.8 3.2 - 5.0 g/dL 02/10/2025 7:17 PM [facility] Total Bilirubin 0.8 0.0 - 1.4 mg/dL 02/10/2025 7:17 PM [facility] Blood Venous blood specimen / Unknown Venipuncture / Unknown 02/10/2025 2:58 PM EST 02/10/2025 2:58 PM EST Maura ROSE LAB BLOOD ORDERABLES Final Res ult [facility] [address] [place] [address], * NM Gastric Emptying Study (12/02/2024 12:15 PM EDT) Anatomical Region Laterality Modality Body Nuclear Medicine 12/02/2024 12:1 3 PM EDT Impressions 12/02/2024 12:14 PM EDT Delayed solid material gastric emptying. Meghan ROSE ([id number]) -------- FINAL REPORT -------- Dictated By: Desiree Alexandre Dictated Date: 12/02/2024 12:13 ET Assigned Physician: Desiree Alexandre Reviewed and Electronically Signed By: Desiree Alexandre Signed Date: 12/02/2024 12:14 ET Workstation ID: [id number] Transcribed By: Self Edit Transcribed Date: 12/02/2024 [...] hours IMPRESSION: Delayed solid material gastric emptying. Telerad ROSE ([id number]) -------- FINAL REPORT -------- Dictated By: Desiree Alexandre Dictated Date: 12/02/2024 12:13 ET Assigned Physician: Desiree Alexandre Reviewed and Electronically Signed By: Desiree Alexandre Signed Date: 12/02/2024 12:14 ET Workstation ID: [id number] Transcribed By: Self Edit Transcribed Date: 12/02/2024 12:13 ET us Tiffany ROSE IMG NM PROCEDURES Final Resul t * Hepatitis panel, acute with reflex to confirmation (01/27/2024 3:26 PM EST) [facility] Hepatitis B Surface Ag Negative Negative LAB CHEMISTRY METHOD 01/27/2024 8:31 PM EST [facility] Hepatitis A Antibody IgM Negative Negative LAB CHEMISTRY METHOD 01/27/2024 8:31 PM EST [facility] Hep B Core IgM Negative Negative LAB CHEMISTRY METHOD 01/27/2024 8:31 PM EST [facility] Hepatitis C Antibody Negative Negative LAB CHEMISTRY METHOD 01/27/2024 8:31 PM EST [facility] Blood Venous blood specimen / Unknown Venipuncture / Unknown 01/27/2024 3:26 PM EST 01/27/2024 3:26 PM EST Maura ROSE LAB BLOOD ORDERABLES Final Res ult [facility] [address] [place] [address], * Cervical Cancer Screening: HPV (01/31/2023) [facility] Cervical Cancer Screening: HPV Negative, Abstracted Historical Provider HEALTH MAINTENANCE Final Result from Last 3 Months or Most Recently Relevant to Health Maintenance Insurance [facility] MEDICARE Member Subscriber Plan / Payer (Ef fective 2018-Present) Name:ARELIS RIDDLE Relation to Subscriber:Self Name:Arelis Riddle Payer ID:[id number] Group ID:[id number] Type:Not on file Address: [place] [address] [place] [place] [address] Care Teams Environmental Health Safety Engineer Relationship Specialty Start Date End Date Reny Martinez MD [address] [place] [address] [place] [address] PCP - General Internal Medicine 01/09/24
--- OUTSIDE RECORDS SUMMARY | 2025-02-17 19:05 | XMS_ITS | Encounter Summary ---
Author Organization [facility] Address [address] [place] [phone] Phone Care Team Providers Care Ancient Art Curator Name Role Phone Elizabeth Devries INFORMATION SYSTEMS SUPERVISOR Primary Care Provider Un available Encounter Details Date Type Department Care Team (Late st Contact Info) Description 02/09/2011 Documentation EM Family Medicine [address] [place], [place] [id number] Family Medicine, Physician [address] [place] [address] Social History Tobacco Use Types Packs/Day Years [...] on filedocumented in this encounter Care Teams Ancient Art Curator Relationship Specialty Start Date End Date Elizabeth Devries NP PCP - General 10/12/16 documented as of this encounter
--- OUTSIDE RECORDS SUMMARY | 2025-02-17 19:05 | XMS_ITS | Encounter Summary ---
Author Organization [facility] Address [address] [place] [address] Care Team Providers Care Assistant Baseball Coach Name Role Phone Reny Martinez MD Primary Care Provider [phone] Encounter Details Date Type Department Care Team ([facility] Contact Info) Description 02/11/2025 Results Follow-Up Adult Medicine [address] [address] Maura Gupta PA [address] [place] [address] Social History Tobacco Use Types Packs/Day Years Used Date Smoking Tobacco: Former Cigarettes 2 18 S tarted: 2008 Smokeless Tobacco: Never Alcohol [...] for your loved ones. For example, child neurologist or elderly care for an older adult? [...] Upcoming Encounters Date Type Department Care Team ([facility] st Contact Info) Description 08/23/2025 1:00 PM EDT Office Visit Gastroenterology - [address] [facility] [address] [place] [address] Tiffany Sheppard PA [address] [facility] [address] [place] [address] 02/11/2026 3:00 PM EST Office Visit Adult Medicine [address] [phone] Reny Martinez MD [address] [place] [address] documented as of this encounter Visit Diagnoses Not on filedocumented in this encounter Additional Health Concerns Assessment Noted Time PHQ-9 Depression Total Score: 12 024 3:06 PM EST documented as of this encounter Care Teams Assistant Baseball Coach Relationship Specialty Start Date End Date Reny Martinez MD [address] [place] [address] PCP - General Internal Medicine 01/09/24 documented as of this encounter
--- OUTSIDE RECORDS SUMMARY | 2025-02-17 19:05 | XMS_ITS | Encounter Summary ---
Author Organization [facility] Address [address] [place] [address] Phone Care Team Providers Care Named Account Executive Name Role Phone Elizabeth Devries ASSOCIATE PROFESSOR OF MEDICINE Primary Care Provider Un available Encounter Details Date Type Department Care Team (Late st Contact Info) Description 02/20/2010 Documentation [facility] [address] [place], [place] [phone] Family Medicine, Physician [address] [place] [address] Social History Tobacco Use Types Packs/Day Years [...] on filedocumented in this encounter Care Teams Named Account Executive Relationship Specialty Start Date End Date Elizabeth Devries NP PCP - General 10/12/16 documented as of this encounter
--- OUTSIDE RECORDS SUMMARY | 2025-02-17 19:05 | XMS_ITS | Clinical Summary ---
Author Organization [facility] Address [address] [place] [phone] Phone Care Team Providers Care Coordinate Measuring Machine Operator Name Role Phone Elizabeth Devries NP Primary [...] complete this topic Procedures * Due to [place] [employer] law, this organization might not be sharing sensitive test results. Procedure Name Priority Date/Time Associated Diagnosis Comments CHLAMYDIA AND GONORRHEA, AMPLIFIED Routine 09/22/2014 3:46 PM EDT from Last 3 Months or Most Recently Relevant to Health Maintenance Results * Due to [place] state law, this organization might not be sharing sensitive test results. * Chlamydia and Gonorrhoea, Amplified (09/22/2014 3:46 PM EDT) URINE GC AMP PROBE NEGATIVE [facility] Comment: No Neisseria Gonorrhoeae RNA detected in this patient's sample (REFERENCE RANGE/NORMAL VALUE: NOT DETECTED) NOTE: This test uses loss prevention officer-mediated amplification method to detect rRNA from C.Trachomatis [...] without risk of sexual abuse. Consult the [facility] if needed. Contact phone number . Therapeutic failure or success cannot be determined with the Aptima Combo2 assay since nucleic acid may persist following appropriate antimicrobial therapy. The Centers for Disease Control and Prevention (CDC) recommends confirmatory retesting using culture or a different nucleic acid amplification test when positive results occur, if indicated. Testing performed or reported by [facility], a Service of [facility], [address] [place] [address] Td Hadley MD, PhD, Sound Equipment Mechanic URINE CHLAMYDIA AMP PROBE NEGATIVE [facility] Comment: No Chlamydia Trachomatis RNA detected in this patient's sample (REFERENCE RANGE/NORMAL VALUE: NOT DETECTED) 09/22/2014 3:46 PM EDT Narrative [facility] - 09/22/2014 3:46 PM EDT URINE CHLAMYDIA GC AMP PROBE us Elizabeth Devries NP LAB MICROBIOLOGY - GENERA L ORDERABLES Final Result [facility] [address] [place] [address], from Last 3 Months or Most Recently Relevant to Health Maintenance Care Teams Coordinate Measuring Machine Operator Relationship Specialty Start Date End Date Elizabeth Devries NP PCP - General 10/12/16
--- OUTSIDE RECORDS SUMMARY | 2025-02-17 19:05 | XMS_ITS | Encounter Summary ---
Author Organization [facility] Address [address] [place] [address] Phone Care Team Providers Care Stuffing Machine Operator Name Role Phone Elizabeth Devries QUALITY ENGINEER MEDICAL DEVICE Primary Care Provider Un available Encounter Details Date Type Department Care Team (Late st Contact Info) Description 05/14/2013 Documentation [facility] [address] [place], [place] [phone] Family Medicine, Physician [address] [place] [address] Social History Tobacco Use Types Packs/Day Years [...] on filedocumented in this encounter Care Teams Stuffing Machine Operator Relationship Specialty Start Date End Date Elizabeth Devries NP PCP - General 10/12/16 documented as of this encounter
--- OUTSIDE RECORDS SUMMARY | 2025-02-17 19:05 | XMS_ITS | Encounter Summary ---
Author Organization [facility] Address [address] [place] [address] Phone Care Team Providers Care Automotive Collision Repair Instructor Name Role Phone Elizabeth Devries FITNESS SALES CONSULTANT Primary Care Provider Un available Encounter Details Date Type Department Care Team (Late st Contact Info) Description 10/18/2016 Conversion Encounter [facility] - [address] [address] Social History Tobacco Use Types Packs/Day Years [...] on filedocumented in this encounter Care Teams Automotive Collision Repair Instructor Relationship Specialty Start Date End Date Elizabeth Devries NP PCP - General 10/12/16 documented as of this encounter
--- OUTSIDE RECORDS SUMMARY | 2025-02-17 19:05 | XMS_ITS | Encounter Summary ---
Author Organization [facility] Address [address] [place] [address] Phone Care Team Providers Care Sock Lining Examiner Name Role Phone Elizabeth Devries PHYSICIAN OPHTHALMOLOGIST Primary Care Provider Un available Encounter Details Date Type Department Care Team (Late st Contact Info) Description 02/09/2011 Documentation [facility] Family Medicine [address] [place], [place] [phone] Family Medicine, Physician [address] [place] [address] Social History Tobacco Use Types Packs/Day Years [...] on filedocumented in this encounter Care Teams Sock Lining Examiner Relationship Specialty Start Date End Date Elizabeth Devries NP PCP - General 10/12/16 documented as of this encounter
--- OUTSIDE RECORDS SUMMARY | 2025-02-17 19:05 | XMS_ITS | Encounter Summary ---
Author Organization [facility] Address [address] [place] [address] Phone Care Team Providers Care Baggage Screener Name Role Phone Elizabeth Devries ENTERPRISE SYSTEMS MANAGER Primary Care Provider Un available Encounter Details Date Type Department Care Team (Late st Contact Info) Description 11/29/2009 Documentation [facility] [address] [place], [place] [phone] Family Medicine, Physician [address] [place] [address] Social History Tobacco Use Types Packs/Day Years [...] on filedocumented in this encounter Care Teams Baggage Screener Relationship Specialty Start Date End Date Elizabeth Devries NP PCP - General 10/12/16 documented as of this encounter
--- OUTSIDE RECORDS SUMMARY | 2025-02-17 19:05 | XMS_ITS | Encounter Summary ---
Author Organization [facility] [address] Address [address] [place] [address] Care Team Providers Care Tire Center Manager Name Role Phone Reny Martinez MD Primary Care Provider [phone] Reason for Visit * Reason Onset Date Comments provider call back 12/12/2024 Encounter Details Date Type Department Care Team ([facility] Contact Info) Description 12/12/2024 Results Follow-Up Gastroenterology - [place] [address] [facility] [address] [facility] [address] [place] [id number] Tiffany Sheppard PA [address] [facility] [address] [place] [address] Social History Tobacco Use Types Packs/Day Years [...] care for your loved ones. For example, children teacher or elderly care for an older [...] 9:34 AM EST Sexual Orientation Bisexual 01/14/2024 9 :34 AM EST documented as of this encounter [...] Office Visit Gastroenterology - [address] [facility] [address] [place] [phone] Tiffany Sheppard PA 299 [facility] [address] [place] [address] 02/11/2026 3:00 PM EST Office Visit Adult Medicine [address] [phone] Reny Martinez MD [address] [place] [address] documented as of this encounter Visit Diagnoses Not on filedocumented in this encounter Additional Health Concerns Assessment Noted Time PHQ-9 Depression Total Score: 12 024 3:06 PM EST documented as of this encounter Care Teams Tire Center Manager Relationship Specialty Start Date End Date Reny Martinez MD [address] [place] [address] PCP - General Internal Medicine 01/09/24 documented as of this encounter
== END 2025-02-17 14:42 | disposition home or self-care (01) ==
LOC: HO.HOS 14:16
PROVIDERS: PCP Internal Medicine
DX: S52.501A Unspecified fracture of the lower end of right radius, initial encounter for closed fracture (principal); M79.641 Pain in right hand
CPT/HCPCS: 99213